=== PATIENT | male | born 1965 | race Caucasian/White ===

== ENCOUNTER 2018-04-29 00:10 | Emergency (ER) | payer OTHER ==
[2018-04-29] MEDS ORDERED: Sodium Chloride 0.9% 1000 ML 1,000 ML ONE (00:42)
[2018-04-29] MEDS ORDERED: Sodium Chloride 0.9% 1000 ML 1,000 ML IV STA (00:44)
[2018-04-29] MEDS ORDERED: Zofran 4 MG/2 ML VIAL IV ONE (00:44)
[2018-04-29] MEDS ORDERED: Zofran 4 MG/2 ML VIAL ONE (00:49)
--- NOTE | 2018-04-29 00:52 | ERPHSYRPT ---
- History of Present Illness Time Seen by Provider: 04/29/18 00:30 Historian: patient Exam Limitations: clinical condition Patient Subjective Stated Complaint: pt is alert and oriented. pt is ambulatory with a steady gait. pt comes in with c/o LLQ abd pain. pt states that he also has left flank pain. pt states that pain has been "coming and going for 2 weeks but became unbearable tonight". pt states he's had some nausea, vomiting x1, and diarrhea. hx of crohns. pt denies pain or difficulty urinating, denies hematuria. bowel sounds present x4. Triage Nursing Assessment: see above Physician History: PATIENT WITH A HISTORY OF CROHNS DISEASE COMPLAINS OF LEFT SIDED ABDOMINAL PAIN FOR 1 WEEK AND LEFT FLANK PAIN X 2 WEEKS. HAS ASSOCIATED EMESIS X 1 TODAY AND DIARRHEA. DENIES FEVER, MELENA, URINARY SYMPTOMS, FREQUENCY, URGENCY, DYSURIA. Timing/Duration: week(s) Activities at Onset: none Quality: throbbing Abdominal Pain Onset Location: LLQ, flank Pain Radiation: flank Severity of Pain-Max: moderate Severity of Pain-Current: moderate Modifying Factors: Improves With: vomiting Associated Symptoms: diarrhea, nausea, vomiting Previous symptoms: same symptoms as today Allergies/Adverse Reactions: Penicillins Allergy (Verified 08/13/15 13:01) IV DYE Adverse Reaction (Uncoded 08/13/15 13:01) Home Medications: Magnesium Oxide 1 tab PO BID 11/26/14 [History] Cyanocobalamin 1000 Mcg/ml [Cyanocobalamin B-12 1000 MCG/ML] 1,000 mcg IJ .MONTHLY 08/13/15 [History] Mesalamine [Pentasa] 500 mg PO TID 08/13/15 [History] Potassium Chloride 20 Meq [Klor-Con 20 MEQ] 40 meq PO BID 08/13/15 [History] Hx Tetanus, Diphtheria Vaccination/Date Given: Yes (November 2017) Hx Influenza Vaccination/Date Given: Yes Hx Pneumococcal Vaccination/Date Given: No Immunizations Up to Date: Yes - Review of Systems Constitutional: No Fever, No Chills Eyes: No Symptoms Ears, Nose, & Throat: No Symptoms Respiratory: No Symptoms, No Cough, No Dyspnea Cardiac: No Symptoms, No Chest Pain, No Edema, No Syncope Abdominal/Gastrointestinal: Abdominal Pain, Nausea, Vomiting, Diarrhea Genitourinary Symptoms: No Symptoms, Flank Pain, No Dysuria Musculoskeletal: No Back Pain, No Neck Pain Skin: No Symptoms, No Rash Neurological: No Symptoms, No Dizziness, No Focal Weakness, No Sensory Changes Psychological: No Symptoms Endocrine: No Symptoms All Other Systems: Reviewed and Negative - Past Medical History Pertinent Past Medical History: Yes Neurological History: No Pertinent History ENT History: No Pertinent History Cardiac History: No Pertinent History Respiratory History: No Pertinent History Endocrine Medical History: No Pertinent History Musculoskeletal History: No Pertinent History GI Medical History: Crohns Disease History: No Pertinent History Psycho-Social History: Depression Male Reproductive Disorders: No Pertinent History Other Medical History: CHRONIC ABD PAIN - Past Surgical History Past Surgical History: Yes Neuro Surgical History: No Pertinent History Cardiac: No Pertinent History Respiratory: No Pertinent History Gastrointestinal: Colon Resection Genitourinary: No Pertinent History Musculoskeletal: No Pertinent History Male Surgical History: No Pertinent History Other Surgical History: adnoids, tonsils, small bowel resection - Social History Smoking Status: Current every day smoker How long have you smoked: 35 years Exposure to second hand smoke: Yes Drug Use: none Patient Lives Alone: No - Nursing Vital Signs Nursing Vital Signs: Initial Vital Signs Temperature 97.5 F 04/29/18 00:10 Pulse Rate 77 04/29/18 00:10 Respiratory Rate 18 04/29/18 00:10 Blood Pressure 160/102 04/29/18 00:10 O2 Sat by Pulse Oximetry 100 04/29/18 00:10 Pain Scale Pain Intensity 10 - Physical Exam General Appearance: no apparent distress, alert Eye Exam: PERRL/EOMI, eyes nml inspection Ears, Nose, Throat Exam: normal ENT inspection, pharynx normal, moist mucous membranes Neck Exam: normal inspection, non-tender, supple, full range of motion Respiratory Exam: normal breath sounds, lungs clear, No respiratory distress Cardiovascular Exam: regular rate/rhythm, normal heart sounds Gastrointestinal/Abdomen Exam: soft, normal bowel sounds, tenderness ( TENDERNESS LEFT LATERAL ABDOMEN,), No mass Back Exam: normal inspection, normal range of motion, CVA tenderness (MODERATE LEFT CVA TENDERNESS), No vertebral tenderness Extremity Exam: normal inspection, normal range of motion, pelvis stable Neurologic Exam: alert, oriented x 3, cooperative, normal mood/affect, nml cerebellar function, sensation nml, No motor deficits Skin Exam: normal color, warm, dry SpO2 Interpretation: normal SpO2: 100 Oxygen Delivery: Room Air - CT Exams Abdomen/Pelvis CT Interpretation: Tele-radiologist Report (STATUS POST PARTIAL COLECTOMY FOR CROHNS DZ, DILATED SEGMENTS OF COLON FILLED WITH AIR, MAXIMUM DIAMETER IS APPROXIMATE 5.2CM, NO BOWEL WALL THICKENING, NO MESENTERIC INFLAMMATION, NO FREE INTA-ABDOMINAL FLUID OR AIR, THERE IS ALSO DILATED LOOPS OF SMALL BOWEL FILLED WITH FLUID. THE EXACT TRANSITION POINT IS NOT CLEAR.) Ordered Tests: Active Orders 24 hr Category Date Time Status IV Insertion STAT Care 04/29/18 00:44 Active ABDOMEN AND PELVIS W/0 CONTRAS [CT] Stat Exams 04/29/18 00:45 Taken AMYLASE Stat Lab 04/29/18 01:00 Completed BLOOD CULTURE Stat Lab 04/29/18 01:30 Received BMP Stat Lab 04/29/18 01:00 Completed CBC W DIFF Stat Lab 04/29/18 00:30 Completed LIPASE Stat Lab 04/29/18 01:00 Completed Occult Blood,Stool Other Stat Lab 04/29/18 01:00 Received PROTIME WITH INR Stat Lab 04/29/18 01:00 Completed UA W/RFX UR CULTURE Stat Lab 04/29/18 01:00 Completed Medication Summary Discontinued Medications Generic Name Dose Route Start Last Admin Trade Name Freq PRN Reason Stop Dose Admin Sodium Chloride Confirm 04/29/18 00:42 Sodium Chloride 0.9% 1000 Ml Administered 04/29/18 00:43 Dose 1,000 mls @ ud .ROUTE .STK-MED ONE Sodium Chloride 1,000 mls @ 999 mls/hr 04/29/18 00:44 04/29/18 00:48 Sodium Chloride 0.9% 1000 Ml IV 04/29/18 01:44 999 mls/hr .Q1H1M STA Administration Ketorolac Tromethamine 30 mg 04/29/18 02:26 04/29/18 02:40 Toradol 30 Mg Injection IV 04/29/18 02:27 30 mg STAT ONE Administration Ketorolac Tromethamine Confirm 04/29/18 02:39 Toradol 30 Mg Injection Administered 04/29/18 02:40 Dose 30 mg .ROUTE .STK-MED ONE Ondansetron HCl 4 mg 04/29/18 00:44 04/29/18 00:50 Zofran 4 Mg/2 Ml Vial IV 04/29/18 00:45 4 mg STAT ONE Administration Ondansetron HCl Confirm 04/29/18 00:49 Zofran 4 Mg/2 Ml Vial Administered 04/29/18 00:50 Dose 4 mg .ROUTE .STK-MED ONE Lab/Rad Data: Laboratory Result Diagrams 04/29/18 00:30 04/29/18 01:00 Laboratory Results 04/29/18 04/29/18 04/29/18 Range/Units 01:00 01:00 01:00 WBC (4.0-10.5) K/mm3 RBC (4.1-5.6) M/mm3 Hgb (12.5-18.0) gm/dl Hct (42-50) % MCV (78-100) fl MCH (26-32) pg MCHC (32-36) g/dl RDW (11.5-14.0) % Plt Count (150-450) K/mm3 MPV (6-9.5) fl Gran % (36.0-66.0) % Eos # (Auto) (0-0.5) Absolute Lymphs (auto) (1.0-4.6) Absolute Monos (auto) (0.0-1.3) Lymphocytes % (24.0-44.0) % Monocytes % (0.0-12.0) % Eosinophils % (0.00-5.0) % Basophils % (0.0-0.4) % Absolute Granulocytes (1.4-6.9) Basophils # (0-0.4) PT 12.6 (8.83-12.87) SECONDS INR 1.08 (0.8-3.0) Sodium 140 (137-145) mmol/L Potassium 3.6 (3.5-5.1) mmol/L Chloride 103 (98-107) mmol/L Carbon Dioxide 28 (22-30) mmol/L Anion Gap 12.0 (5-15) MEQ/L BUN 16 (9-20) mg/dL Creatinine 0.86 (0.66-1.25) mg/dL Estimated GFR > 60.0 ML/MIN Glucose 88 (74-106) mg/dL Calcium 9.4 (8.4-10.2) mg/dL Amylase 61 (30-110) U/L Lipase 196 (23-300) U/L Urine Color YELLOW (YELLOW) Urine Appearance CLEAR (CLEAR) Urine pH 6.0 (5-6) Ur Specific [place] 1.013 (1.005-1.025) Urine Protein NEGATIVE (Negative) Urine Ketones NEGATIVE (NEGATIVE) Urine Blood NEGATIVE (0-5) Reji/ul Urine Nitrite NEGATIVE (NEGATIVE) Urine Bilirubin NEGATIVE (NEGATIVE) Urine Urobilinogen 2 (0-1) mg/dL Ur Leukocyte Esterase NEGATIVE (NEGATIVE) Urine WBC (Auto) 0-2 (0-5) /HPF Urine RBC (Auto) 0-2 (0-2) /HPF U Epithel Cells (Auto) NONE SEEN (FEW) /HPF Urine Mucus (Auto) SLIGHT (NEGATIVE) /HPF Urine Culture Reflexed NO (NO) Urine Glucose NEGATIVE (NEGATIVE) mg/dL 04/29/18 Range/Units 00:30 WBC 9.3 (4.0-10.5) K/mm3 RBC 5.02 (4.1-5.6) M/mm3 Hgb 15.4 (12.5-18.0) gm/dl Hct 43.5 (42-50) % MCV 86.7 (78-100) fl MCH 30.7 (26-32) pg MCHC 35.4 (32-36) g/dl RDW 13.8 (11.5-14.0) % Plt Count 352 (150-450) K/mm3 MPV 10.4 H (6-9.5) fl Gran % 69.1 H (36.0-66.0) % Eos # (Auto) 0.24 (0-0.5) Absolute Lymphs (auto) 1.91 (1.0-4.6) Absolute Monos (auto) 0.71 (0.0-1.3) Lymphocytes % 20.5 L (24.0-44.0) % Monocytes % 7.6 (0.0-12.0) % Eosinophils % 2.6 (0.00-5.0) % Basophils % 0.2 (0.0-0.4) % Absolute Granulocytes 6.43 (1.4-6.9) Basophils # 0.02 (0-0.4) PT (8.83-12.87) SECONDS INR (0.8-3.0) Sodium (137-145) mmol/L Potassium (3.5-5.1) mmol/L Chloride (98-107) mmol/L Carbon Dioxide (22-30) mmol/L Anion Gap (5-15) MEQ/L BUN (9-20) mg/dL Creatinine (0.66-1.25) mg/dL Estimated GFR ML/MIN Glucose (74-106) mg/dL Calcium (8.4-10.2) mg/dL Amylase (30-110) U/L Lipase (23-300) U/L Urine Color (YELLOW) Urine Appearance (CLEAR) Urine pH (5-6) Ur Specific [place] (1.005-1.025) Urine Protein (Negative) Urine Ketones (NEGATIVE) Urine Blood (0-5) Reji/ul Urine Nitrite (NEGATIVE) Urine Bilirubin (NEGATIVE) Urine Urobilinogen (0-1) mg/dL Ur Leukocyte Esterase (NEGATIVE) Urine WBC (Auto) (0-5) /HPF Urine RBC (Auto) (0-2) /HPF U Epithel Cells (Auto) (FEW) /HPF Urine Mucus (Auto) (NEGATIVE) /HPF Urine Culture Reflexed (NO) Urine Glucose (NEGATIVE) mg/dL - Progress Progress Note: 04/29/18 00:54 IV NORMAL SALINE 1 LITER BOLUS - Departure Time of Disposition: 03:05 (\\) Departure Disposition: Home Clinical Impression: ABDOMINAL PAIN Condition: Stable Critical Care Time: No Referrals: HAIM CRANDALL MD [Primary Care Provider] - Additional Instructions: ZOFRAN 4MG EVERY 6 HOURS NEEDED FOR NAUSEA OR VOMITING. NORCO 10/325 EVERY 4 HOURS FOR PAIN. CONSULT YOUR PRIMARY CARE PROVIDER TO RESCHEDULE COLONOSCOPY. Prescriptions: Ondansetron ODT 4 MG [Zofran Odt 4 mg] 4 mg PO Q6H PRN PRN #10 tab.rapdis PRN Reason: Nausea
[2018-04-29 01:52] LABS: Appearance CLEAR (CLEAR); Bilirubin NEGATIVE (NEGATIVE); Blood NEGATIVE Ery/ul (0-5); Glucose NEGATIVE (NEGATIVE); Ketones NEGATIVE (NEGATIVE); Leukocyte Esterase NEGATIVE (NEGATIVE); Nitrite NEGATIVE (NEGATIVE); Protein,Urine Dip NEGATIVE (Negative); Specific Gravity 1.013 (1.005-1.025); Urobilinogen 2 mg/dL (0-1)
[2018-04-29 02:03] LABS: INR 1.08 (0.8-3.0)
[2018-04-29 02:07] LABS: AMYLASE 61 U/L (30-110); BLOOD UREA NITROGEN 16 mg/dL (9-20); CHLORIDE 103 mmol/L (98-107); Calcium 9.4 mg/dL (8.4-10.2); Carbon Dioxide 28 mmol/L (22-30); Creatinine 1 0.86 mg/dL (0.66-1.25); Glucose 88 mg/dL (74-106); LIPASE 196 U/L (23-300); Potassium 3.6 mmol/L (3.5-5.1); SODIUM 140 mmol/L (137-145)
[2018-04-29] MEDS ORDERED: TORAdol 30 mg Injection IV ONE (02:26)
[2018-04-29 02:37] LABS: BASOPHIL % 0.2 % (0.0-0.4); Basophil (Absolute #) 0.02 (0-0.4); Eosinophil % 2.6 % (0.00-5.0); Eosinophil (Absolute #) 0.24 (0-0.5); Granulocyte Absolute (ANC) 6.43 (1.4-6.9); Granulocytes % 69.1 % (36.0-66.0); Hematocrit 43.5 % (42-50); Hemoglobin 15.4 gm/dl (12.5-18.0); Lymphocyte (Absolute #) 1.91 (1.0-4.6); Lymphocytes % 20.5 % (24.0-44.0); Mean Cell Volume 86.7 fl (78-100); Mean Corpuscular Hemoglobin 30.7 pg (26-32); Mean Corpuscular Hgb Concent. 35.4 g/dl (32-36); Mean Platelet Volume 10.4 fl (6-9.5); Monocyte (Absolute #) 0.71 (0.0-1.3); Monocytes % 7.6 % (0.0-12.0); Platelet Count 352 K/mm3 (150-450); Red Blood Count 5.02 M/mm3 (4.1-5.6); Red Cell Distribution Width 13.8 % (11.5-14.0); White Blood Count 9.3 K/mm3 (4.0-10.5)
[2018-04-29] MEDS ORDERED: TORAdol 30 mg Injection ONE (02:39)
[2018-04-29] MEDS ORDERED: Norco 10/325 MG Tablet PO ONE (03:08)
[2018-04-29] MEDS ORDERED: Norco 10/325 MG Tablet ONE (03:10)
[2018-04-29 03:17] VITALS: BP 129/79; PULSE 60; O2SAT 97
--- NOTE | 2018-04-29 07:31 | XRAY ---
Indication: Left abdominal pain. Multiple contiguous axial images obtained through the abdomen and pelvis without contrast as ordered. Comparison: November 26, 2014. Lung bases again demonstrates minimal left base fibrosis/scarring. No infiltrate or effusion. Heart is not enlarged. New small hiatal hernia. Stomach is distended with food/fluid. Stable intact right mid abdomen bowel anastomosis. Bowel loops are mild/moderately fluid distended with left abdomen bowel wall thickening and several synchronous fluid leveling, ileus versus enteritis. Bowel loops also demonstrates numerous tiny radiopacities presumed ingested medication. Previous appendectomy. No free fluid/air. Again moderately distended gallbladder without gallstones or biliary distention. Remaining liver, anchors, spleen, adrenal glands, kidneys, ureters, and bladder appear unremarkable for noncontrast exam. Again minimal aortic calcifications without AAA. Osseous structures intact again with mild degenerative changes throughout the spine. Impression: 1. Fluid distended bowel loops with left abdomen bowel wall thickening and several fluid leveling, ileus versus enteritis. 2. Stable distended gallbladder. Gallbladder sonogram may yield further information if clinically warranted. 3. New small hiatal hernia. Comment: Preliminary interpretation was made by [facility]. No critical discrepancy. CTDI 8.07
== END 2018-04-29 03:25 | disposition home or self-care (01) ==
LOC: ED 00:10
DX: R10.32 Left lower quadrant pain (principal); R19.7 Diarrhea, unspecified; R11.2 Nausea with vomiting, unspecified; Z79.899 Other long term (current) drug therapy
CPT/HCPCS: 36000; 36415; 74176; 80048; 81001; 82150; 83690; 85025; 85610; 87040; 96360; 96374; 96375; 99284; J1885; J2405; A9270-GY

== ENCOUNTER 2018-12-15 17:29 | Observation (INO) | payer OTHER ==
[2018-12-15 17:54] LABS: BASOPHIL % 0.1 % (0.0-0.4); Basophil (Absolute #) 0.01 (0-0.4); Eosinophil % 1.8 % (0.00-5.0); Eosinophil (Absolute #) 0.22 (0-0.5); Granulocyte Absolute (ANC) 9.11 (1.4-6.9); Granulocytes % 72.8 % (36.0-66.0); Hematocrit 37.7 % (42-50); Hemoglobin 13.5 gm/dl (12.5-18.0); Lymphocyte (Absolute #) 2.11 (1.0-4.6); Lymphocytes % 16.9 % (24.0-44.0); Mean Cell Volume 91.3 fl (78-100); Mean Corpuscular Hemoglobin 32.7 pg (26-32); Mean Corpuscular Hgb Concent. 35.8 g/dl (32-36); Mean Platelet Volume 9.9 fl (6-9.5); Monocyte (Absolute #) 1.05 (0.0-1.3); Monocytes % 8.4 % (0.0-12.0); Platelet Count 291 K/mm3 (150-450); Red Blood Count 4.13 M/mm3 (4.1-5.6); Red Cell Distribution Width 13.4 % (11.5-14.0); White Blood Count 12.5 K/mm3 (4.0-10.5)
[2018-12-15 18:05] LABS: ALBUMIN 3.5 g/dL (3.5-5.0); ALKALINE PHOSPHATASE 104 U/L (38-126); ANION GAP 13.3 MEQ/L (5-15); BLOOD UREA NITROGEN 6 mg/dL (9-20); CHLORIDE 102 mmol/L (98-107); Carbon Dioxide 25 mmol/L (22-30); Creatinine 1 0.89 mg/dL (0.66-1.25); Glucose 104 mg/dL (74-106); SGOT/AST 19 U/L (17-59); SGPT/ALT 13 U/L (0-50); SODIUM 138 mmol/L (137-145); Total Protein 6.4 g/dL (6.3-8.2)
[2018-12-15 18:08] LABS: Potassium 2.7 mmol/L (3.5-5.1)
[2018-12-15] MEDS ORDERED: ENOXAPARIN SODIUM SQ ONE ×2 (18:09→18:21)
--- NOTE | 2018-12-15 18:15 | ERPHSYRPT ---
- History of Present Illness Time Seen by Provider: 12/15/18 18:12 Source: patient Exam Limitations: no limitations Patient Subjective Stated Complaint: Pt states "I am having pain on the right chest." Triage Nursing Assessment: Pt presented alert and oriented X 3, skin pwd. Pt ambulates with an upright steady gait, able to speak in clear full sentences. Pt in no apparent respiratory distress. Physician History: Pt states "I am having pain on the right chest." started 1 hour ago. with tingling and numbness in both arms, pain radiate to right arm, forearm and fingers. No shortness of breath. Patient has long history of crohns disease but recently no active symptoms Timing/Duration: today Associated Symptoms: denies symptoms Allergies/Adverse Reactions: buspirone [From BuSpar] Allergy (Severe, Verified 12/15/18 17:42) Swelling Penicillins Allergy (Verified 12/14/18 07:37) IV DYE Adverse Reaction (Uncoded 12/14/18 07:37) Home Medications: Magnesium Oxide 1 tab PO BID 11/26/14 [History] Cyanocobalamin 1000 Mcg/ml [Cyanocobalamin B-12 1000 MCG/ML] 1,000 mcg IJ .MONTHLY 08/13/15 [History] Mesalamine [Pentasa] 500 mg PO TID 08/13/15 [History] Hx Tetanus, Diphtheria Vaccination/Date Given: Yes Hx Influenza Vaccination/Date Given: Yes Hx Pneumococcal Vaccination/Date Given: Yes Immunizations Up to Date: Yes - Review of Systems Constitutional: No Fever, No Chills Eyes: No Symptoms Ears, Nose, & Throat: No Symptoms Respiratory: No Cough, No Dyspnea Cardiac: Chest Pain, No Edema, No Syncope Abdominal/Gastrointestinal: No Abdominal Pain, No Nausea, No Vomiting, No Diarrhea Genitourinary Symptoms: No Dysuria Musculoskeletal: No Back Pain, No Neck Pain Skin: No Rash Neurological: No Dizziness, No Focal Weakness, No Sensory Changes Psychological: No Symptoms Endocrine: No Symptoms All Other Systems: Reviewed and Negative - Past Medical History Pertinent Past Medical History: Yes Neurological History: No Pertinent History ENT History: No Pertinent History Cardiac History: No Pertinent History Respiratory History: No Pertinent History Endocrine Medical History: No Pertinent History Musculoskeletal History: No Pertinent History GI Medical History: Crohns Disease History: No Pertinent History Psycho-Social History: Depression Male Reproductive Disorders: No Pertinent History Other Medical History: CHRONIC ABD PAIN - Past Surgical History Past Surgical History: Yes Neuro Surgical History: No Pertinent History Cardiac: No Pertinent History Respiratory: No Pertinent History Gastrointestinal: Colon Resection Genitourinary: No Pertinent History Musculoskeletal: No Pertinent History Male Surgical History: No Pertinent History Other Surgical History: adnoids, tonsils, small bowel resection - Social History Smoking Status: Current every day smoker How long have you smoked: 42 years Exposure to second hand smoke: Yes Drug Use: none Patient Lives Alone: Yes - Nursing Vital Signs Nursing Vital Signs: Initial Vital Signs Temperature 98.9 F 12/15/18 17:35 Pulse Rate 72 12/15/18 17:35 Respiratory Rate 18 12/15/18 17:35 Blood Pressure 141/85 12/15/18 17:35 O2 Sat by Pulse Oximetry 97 12/15/18 17:35 Pain Scale Pain Intensity 2 - Physical Exam General Appearance: no apparent distress, alert Eye Exam: PERRL/EOMI, eyes nml inspection Ears, Nose, Throat Exam: normal ENT inspection, TMs normal, pharynx normal, moist mucous membranes Neck Exam: normal inspection, non-tender, supple, full range of motion Respiratory Exam: chest tenderness, diminished breath sounds, No respiratory distress Cardiovascular Exam: regular rate/rhythm, normal heart sounds, normal peripheral pulses Gastrointestinal/Abdomen Exam: soft, normal bowel sounds, No tenderness, No mass Back Exam: normal inspection, normal range of motion, No CVA tenderness, No vertebral tenderness Extremity Exam: normal inspection, normal range of motion, pelvis stable Neurologic Exam: alert, oriented x 3, cooperative, normal mood/affect, nml cerebellar function, nml station & gait, sensation nml, No motor deficits Skin Exam: normal color, warm, dry, No rash Lymphatic Exam: No adenopathy SpO2: 97 - Course Nursing assessment & vital signs reviewed: Yes EKG Interpreted by Me: Sinus Rhythm - Radiology Exams Chest X-ray Interpretation: Reviewed by me Ordered Tests: Active Orders 24 hr Category Date Time Status EKG-ER Only STAT Care 12/15/18 17:45 Active Oxygen-ED Only Nasal Cannula 2 lpm Care 12/15/18 17:44 Active CHEST 2 VIEWS (PA AND LAT) Stat Exams 12/15/18 17:44 Taken CBC W DIFF Stat Lab 12/15/18 17:50 Completed CMP Stat Lab 12/15/18 17:50 Completed D-DIMER QUANTITATION Stat Lab 12/15/18 17:50 Completed TROPONIN Q3H Lab 12/15/18 17:50 Completed TROPONIN Q3H Lab 12/15/18 20:45 Ordered TROPONIN Q3H Lab 12/15/18 23:45 Ordered TROPONIN Q3H Lab 12/16/18 02:45 Ordered TROPONIN Q3H Lab 12/16/18 05:45 Ordered Medication Summary Generic Name Dose Route Start Last Admin Trade Name Freq PRN Reason Stop Dose Admin Potassium Chloride 20 meq in 100 mls @ 50 mls/hr 12/15/18 18:15 12/15/18 18: 26 Potassium Chloride 20 Meq In Water 100ml IV 12/15/18 22:14 50 mls/hr Q2H JOSE M Administration Levofloxacin/Dextrose 750 mg in 150 mls @ 100 mls/hr 12/15/18 18:16 Levofloxacin 750mg/150ml D5w IV 12/15/18 19:45 STAT STA Discontinued Medications Generic Name Dose Route Start Last Admin Trade Name Freq PRN Reason Stop Dose Admin Enoxaparin Sodium 60 mg 12/15/18 18:09 12/15/18 18:27 Enoxaparin Sodium SQ 12/15/18 18:10 60 mg STAT ONE Administration Enoxaparin Sodium Confirm 12/15/18 18:21 Enoxaparin Sodium Administered 12/15/18 18:22 Dose 120 mg SQ .STK-MED ONE Sodium Chloride Confirm 12/15/18 18:21 Sodium Chloride 0.9% 1000 Ml Administered 12/15/18 18:22 Dose 1,000 mls @ ud .ROUTE .STK-MED ONE Lab/Rad Data: Laboratory Result Diagrams 12/15/18 17:50 12/15/18 17:50 Laboratory Results 12/15/18 12/15/18 12/15/18 Range/Units 17:50 17:50 17:50 WBC (4.0-10.5) K/mm3 RBC (4.1-5.6) M/mm3 Hgb (12.5-18.0) gm/dl Hct (42-50) % MCV (78-100) fl MCH (26-32) pg MCHC (32-36) g/dl RDW (11.5-14.0) % Plt Count (150-450) K/mm3 MPV (6-9.5) fl Gran % (36.0-66.0) % Eos # (Auto) (0-0.5) Absolute Lymphs (auto) (1.0-4.6) Absolute Monos (auto) (0.0-1.3) Lymphocytes % (24.0-44.0) % Monocytes % (0.0-12.0) % Eosinophils % (0.00-5.0) % Basophils % (0.0-0.4) % Absolute Granulocytes (1.4-6.9) Basophils # (0-0.4) D-Dimer 1240 H* (215-500) ng/mL Sodium 138 (137-145) mmol/L Potassium 2.7 L* (3.5-5.1) mmol/L Chloride 102 (98-107) mmol/L Carbon Dioxide 25 (22-30) mmol/L Anion Gap 13.3 (5-15) MEQ/L BUN 6 L (9-20) mg/dL Creatinine 0.89 (0.66-1.25) mg/dL Estimated GFR > 60.0 ML/MIN Glucose 104 (74-106) mg/dL Calcium 9.0 (8.4-10.2) mg/dL Total Bilirubin 0.40 (0.2-1.3) mg/dL AST 19 (17-59) U/L ALT 13 (0-50) U/L Alkaline Phosphatase 104 (38-126) U/L Troponin I < 0.012 (0.000-0.034) ng/mL Serum Total Protein 6.4 (6.3-8.2) g/dL Albumin 3.5 (3.5-5.0) g/dL 12/15/18 Range/Units 17:50 WBC 12.5 H (4.0-10.5) K/mm3 RBC 4.13 (4.1-5.6) M/mm3 Hgb 13.5 (12.5-18.0) gm/dl Hct 37.7 L (42-50) % MCV 91.3 (78-100) fl MCH 32.7 H (26-32) pg MCHC 35.8 (32-36) g/dl RDW 13.4 (11.5-14.0) % Plt Count 291 (150-450) K/mm3 MPV 9.9 H (6-9.5) fl Gran % 72.8 H (36.0-66.0) % Eos # (Auto) 0.22 (0-0.5) Absolute Lymphs (auto) 2.11 (1.0-4.6) Absolute Monos (auto) 1.05 (0.0-1.3) Lymphocytes % 16.9 L (24.0-44.0) % Monocytes % 8.4 (0.0-12.0) % Eosinophils % 1.8 (0.00-5.0) % Basophils % 0.1 (0.0-0.4) % Absolute Granulocytes 9.11 H (1.4-6.9) Basophils # 0.01 (0-0.4) D-Dimer (215-500) ng/mL Sodium (137-145) mmol/L Potassium (3.5-5.1) mmol/L Chloride (98-107) mmol/L Carbon Dioxide (22-30) mmol/L Anion Gap (5-15) MEQ/L BUN (9-20) mg/dL Creatinine (0.66-1.25) mg/dL Estimated GFR ML/MIN Glucose (74-106) mg/dL Calcium (8.4-10.2) mg/dL Total Bilirubin (0.2-1.3) mg/dL AST (17-59) U/L ALT (0-50) U/L Alkaline Phosphatase (38-126) U/L Troponin I (0.000-0.034) ng/mL Serum Total Protein (6.3-8.2) g/dL Albumin (3.5-5.0) g/dL - Progress Progress: improved Discussed with DrSrikanth: Latonya Oconnor Counseled pt/family regarding: lab results, diagnosis, need for follow-up - Departure Departure Disposition: Observation Clinical Impression: Hypokalemia, gastrointestinal losses, Elevated d-dimer, Chest pain in adult Condition: Fair Critical Care Time: Yes Critical Care Time(excluding separately billable procedures): 30-74 minutes Referrals: HAIM CRANDALL MD [Primary Care Provider] -
[2018-12-15] MEDS ORDERED: LEVOFLOXACIN 750MG/150ML D5W 750 MG/150 ML BAG IV STA (18:16)
[2018-12-15] MEDS ORDERED: Sodium Chloride 0.9% 1000 ML 1,000 ML ONE (18:21)
[2018-12-15] MEDS: POTASSIUM CHLORIDE 20 mEq IN WATER 100ML 20 MEQ/100 ML BAG IV SCH ×2 (18:26→21:39)
[2018-12-15] MEDS ORDERED: Sodium Chloride 0.9% 1000 ML 1,000 ML IV SCH (19:36)
[2018-12-15] MEDS ORDERED: TYLENOL 325 MG PO PRN (19:36)
[2018-12-15] MEDS: ENOXAPARIN SODIUM SQ SCH (19:57)
[2018-12-15] MEDS: DUONEB 0.5-3 MG/3 ml Neb IH SCH (20:55)
--- NOTE | 2018-12-15 21:32 | XRAY ---
Indication: Right chest pain. Comparison: None PA/lateral chest hyperinflated and clear. Heart and mediastinal structures within normal limits. Bony thorax intact with mild dextroscoliosis. Impression: Nonacute hyperinflated chest.
[2018-12-15] MEDS ORDERED: DELZICOL PO SCH (22:00)
[2018-12-16] MEDS ORDERED: LEVOFLOXACIN 750MG/150ML D5W 750 MG/150 ML BAG IV ONE (01:31)
[2018-12-16 06:35] LABS: BASOPHIL % 0.3 % (0.0-0.4); Basophil (Absolute #) 0.03 (0-0.4); Eosinophil % 2.4 % (0.00-5.0); Eosinophil (Absolute #) 0.25 (0-0.5); Granulocyte Absolute (ANC) 7.37 (1.4-6.9); Granulocytes % 72.2 % (36.0-66.0); Hematocrit 34.4 % (42-50); Hemoglobin 11.9 gm/dl (12.5-18.0); Lymphocytes % 15.7 % (24.0-44.0); Mean Cell Volume 93.5 fl (78-100); Mean Corpuscular Hemoglobin 32.3 pg (26-32); Mean Corpuscular Hgb Concent. 34.6 g/dl (32-36); Mean Platelet Volume 10.3 fl (6-9.5); Monocyte (Absolute #) 0.96 (0.0-1.3); Monocytes % 9.4 % (0.0-12.0); Platelet Count 254 K/mm3 (150-450); Red Blood Count 3.68 M/mm3 (4.1-5.6); Red Cell Distribution Width 13.5 % (11.5-14.0); White Blood Count 10.2 K/mm3 (4.0-10.5)
[2018-12-16 06:43] LABS: BLOOD UREA NITROGEN 6 mg/dL (9-20); CHLORIDE 109 mmol/L (98-107); Calcium 8.2 mg/dL (8.4-10.2); Carbon Dioxide 22 mmol/L (22-30); Creatinine 1 0.81 mg/dL (0.66-1.25); Glucose 92 mg/dL (74-106); SODIUM 141 mmol/L (137-145)
[2018-12-16] MEDS: DUONEB 0.5-3 MG/3 ml Neb IH SCH ×3 (07:26→15:59)
[2018-12-16] MEDS: ENOXAPARIN SODIUM SQ SCH (07:45)
[2018-12-16] MEDS ORDERED: DELZICOL PO SCH (10:00)
[2018-12-16] MEDS ORDERED: K-LYTE 25 MEQ PO ONE (13:10)
--- NOTE | 2018-12-16 14:00 | PCM.SSS ---
History of Present Illness - Chief Complaint Chief Complaint: chest pain, hypokalemia, Elevated D dimer History of Present Illness: is a 53 year old male pt of Dr. Oconnor with Crohn's disease, chronic hypokalemia and hypomagnesemia, hx SBO, and depression, who came to ER c /o R sided chest pain and weakness. Was found to have potassium of 2.7 and d- dimer of 1240. CXR was nl and troponins have been neg x 5. He has an allergy to IV dye so CTA of the chest was not done to r/o PE. He was given a therapeutic dose of lovenox and admitted for possible VQ scan. Pt had been to Dr. Oconnor 3d ago for refills on his medicine but for some reason the potassium did not get refilled and he has been out for 3 days. He states he has had these sx before when he gets hypokalemic. The day of admission he was suddenly weak, had tingling in his legs and arms with R sided, stabbing 2-3 chest pain without N/diaphoresis. He "couldn't sit still." Was also c/o hot flashes and dry heaves. This morning he states his sx are gone. no chest pain at all. Not SOB. Medications & Allergies Home Medications: Home Medication List Magnesium Oxide 1 tab PO BID 11/26/14 [History Confirmed 12/15/18] Cyanocobalamin 1000 Mcg/ml [Cyanocobalamin B-12 1000 MCG/ML] 1,000 mcg IJ .MONTHLY 08/13/15 [History Confirmed 12/15/18] Mesalamine [Pentasa] 500 mg PO TID 08/13/15 [History Confirmed 12/15/18] Potassium Chloride [K-Dur] 40 meq PO BID #120 tab.er.prt 12/16/18 [Rx] Allergies/Adverse Reactions: Allergies Allergy/AdvReac Type Severity Reaction Status Date / Time buspirone [From BuSpar] Allergy Severe Swelling Verified 12/15/18 17:42 Penicillins Allergy Verified 12/14/18 07:37 IV DYE AdvReac Uncoded 12/14/18 07:37 - Past Medical History Past Medical History: Yes Neurological History: No Pertinent History ENT History: No Pertinent History Cardiac History: No Pertinent History Respiratory History: No Pertinent History Endocrine Medical History: No Pertinent History Musculoskelatal History: No Pertinent History GI Medical History: Crohns Disease History: No Pertinent History Pyscho-Social History: Depression Male Reproductive Disorders: No Pertinent History Comment: chronic abd pain - Past Surgical History Past Surgical History: Yes Neuro Surgical History: No Pertinent History Cardiac History: No Pertinent History Respiratory Surgery: No Pertinent History GI Surgical History: Appendectomy, Colon Resection Genitourinary Surgical Hx: No Pertinent History Musculskeletal Surgical Hx: No Pertinent History Male Surgical History: No Pertinent History Other Surgical History: adnoids, tonsils, small bowel resection - Social History Smoking Status: Current every day smoker How long have you smoked: 42 years Exposure to second hand smoke: Yes Alcohol: Rarely Drug Use: none - Physical Exam Vital Signs: Vital Signs - 24 hr Temp Pulse Pulse Resp BP Pulse Ox 12/16/18 12:00 98.8 F 84 16 123/66 98 12/16/18 11:26 64 16 98 12/16/18 07:30 57 L 16 98 12/16/18 07:25 99 F 59 L 18 119/64 98 12/16/18 03:19 98.5 F 73 20 110/64 98 12/15/18 23:30 98.1 F 77 17 116/56 96 12/15/18 22:00 98.6 F 63 18 131/65 99 12/15/18 20:56 71 18 98 12/15/18 18:38 69 18 124/92 98 12/15/18 18:34 97 12/15/18 17:35 98.9 F 72 72 18 141/85 97 Results - Labs Lab/Micro Results: Lab Results-Last 24 Hours 12/15/18 12/15/18 12/15/18 Range/Units 17:50 17:50 17:50 WBC 12.5 H (4.0-10.5) K/mm3 RBC 4.13 (4.1-5.6) M/mm3 Hgb 13.5 (12.5-18.0) gm/dl Hct 37.7 L (42-50) % MCV 91.3 (78-100) fl MCH 32.7 H (26-32) pg MCHC 35.8 (32-36) g/dl RDW 13.4 (11.5-14.0) % Plt Count 291 (150-450) K/mm3 MPV 9.9 H (6-9.5) fl Gran % 72.8 H (36.0-66.0) % Eos # (Auto) 0.22 (0-0.5) Absolute Lymphs (auto) 2.11 (1.0-4.6) Absolute Monos (auto) 1.05 (0.0-1.3) Lymphocytes % 16.9 L (24.0-44.0) % Monocytes % 8.4 (0.0-12.0) % Eosinophils % 1.8 (0.00-5.0) % Basophils % 0.1 (0.0-0.4) % Absolute Granulocytes 9.11 H (1.4-6.9) Basophils # 0.01 (0-0.4) D-Dimer 1240 H* (215-500) ng/mL Sodium 138 (137-145) mmol/L Potassium 2.7 L* (3.5-5.1) mmol/L Chloride 102 (98-107) mmol/L Carbon Dioxide 25 (22-30) mmol/L Anion Gap 13.3 (5-15) MEQ/L BUN 6 L (9-20) mg/dL Creatinine 0.89 (0.66-1.25) mg/dL Estimated GFR > 60.0 ML/MIN Glucose 104 (74-106) mg/dL Calcium 9.0 (8.4-10.2) mg/dL Total Bilirubin 0.40 (0.2-1.3) mg/dL AST 19 (17-59) U/L ALT 13 (0-50) U/L Alkaline Phosphatase 104 (38-126) U/L Troponin I (0.000-0.034) ng/mL Serum Total Protein 6.4 (6.3-8.2) g/dL Albumin 3.5 (3.5-5.0) g/dL 12/15/18 12/15/18 12/15/18 Range/Units 17:50 20:57 23:47 WBC (4.0-10.5) K/mm3 RBC (4.1-5.6) M/mm3 Hgb (12.5-18.0) gm/dl Hct (42-50) % MCV (78-100) fl MCH (26-32) pg MCHC (32-36) g/dl RDW (11.5-14.0) % Plt Count (150-450) K/mm3 MPV (6-9.5) fl Gran % (36.0-66.0) % Eos # (Auto) (0-0.5) Absolute Lymphs (auto) (1.0-4.6) Absolute Monos (auto) (0.0-1.3) Lymphocytes % (24.0-44.0) % Monocytes % (0.0-12.0) % Eosinophils % (0.00-5.0) % Basophils % (0.0-0.4) % Absolute Granulocytes (1.4-6.9) Basophils # (0-0.4) D-Dimer (215-500) ng/mL Sodium (137-145) mmol/L Potassium (3.5-5.1) mmol/L Chloride (98-107) mmol/L Carbon Dioxide (22-30) mmol/L Anion Gap (5-15) MEQ/L BUN (9-20) mg/dL Creatinine (0.66-1.25) mg/dL Estimated GFR ML/MIN Glucose (74-106) mg/dL Calcium (8.4-10.2) mg/dL Total Bilirubin (0.2-1.3) mg/dL AST (17-59) U/L ALT (0-50) U/L Alkaline Phosphatase (38-126) U/L Troponin I < 0.012 < 0.012 < 0.012 (0.000-0.034) ng/mL Serum Total Protein (6.3-8.2) g/dL Albumin (3.5-5.0) g/dL 12/16/18 12/16/18 12/16/18 Range/Units 03:19 06:25 06:25 WBC 10.2 (4.0-10.5) K/mm3 RBC 3.68 L (4.1-5.6) M/mm3 Hgb 11.9 L (12.5-18.0) gm/dl Hct 34.4 L (42-50) % MCV 93.5 (78-100) fl MCH 32.3 H (26-32) pg MCHC 34.6 (32-36) g/dl RDW 13.5 (11.5-14.0) % Plt Count 254 (150-450) K/mm3 MPV 10.3 H (6-9.5) fl Gran % 72.2 H (36.0-66.0) % Eos # (Auto) 0.25 (0-0.5) Absolute Lymphs (auto) 1.60 (1.0-4.6) Absolute Monos (auto) 0.96 (0.0-1.3) Lymphocytes % 15.7 L (24.0-44.0) % Monocytes % 9.4 (0.0-12.0) % Eosinophils % 2.4 (0.00-5.0) % Basophils % 0.3 (0.0-0.4) % Absolute Granulocytes 7.37 H (1.4-6.9) Basophils # 0.03 (0-0.4) D-Dimer (215-500) ng/mL Sodium (137-145) mmol/L Potassium (3.5-5.1) mmol/L Chloride (98-107) mmol/L Carbon Dioxide (22-30) mmol/L Anion Gap (5-15) MEQ/L BUN (9-20) mg/dL Creatinine (0.66-1.25) mg/dL Estimated GFR ML/MIN Glucose (74-106) mg/dL Calcium (8.4-10.2) mg/dL Total Bilirubin (0.2-1.3) mg/dL AST (17-59) U/L ALT (0-50) U/L Alkaline Phosphatase (38-126) U/L Troponin I < 0.012 < 0.012 (0.000-0.034) ng/mL Serum Total Protein (6.3-8.2) g/dL Albumin (3.5-5.0) g/dL 12/16/18 Range/Units 06:25 WBC (4.0-10.5) K/mm3 RBC (4.1-5.6) M/mm3 Hgb (12.5-18.0) gm/dl Hct (42-50) % MCV (78-100) fl MCH (26-32) pg MCHC (32-36) g/dl RDW (11.5-14.0) % Plt Count (150-450) K/mm3 MPV (6-9.5) fl Gran % (36.0-66.0) % Eos # (Auto) (0-0.5) Absolute Lymphs (auto) (1.0-4.6) Absolute Monos (auto) (0.0-1.3) Lymphocytes % (24.0-44.0) % Monocytes % (0.0-12.0) % Eosinophils % (0.00-5.0) % Basophils % (0.0-0.4) % Absolute Granulocytes (1.4-6.9) Basophils # (0-0.4) D-Dimer (215-500) ng/mL Sodium 141 (137-145) mmol/L Potassium 3.0 L (3.5-5.1) mmol/L Chloride 109 H (98-107) mmol/L Carbon Dioxide 22 (22-30) mmol/L Anion Gap 12.0 (5-15) MEQ/L BUN 6 L (9-20) mg/dL Creatinine 0.81 (0.66-1.25) mg/dL Estimated GFR > 60.0 ML/MIN Glucose 92 (74-106) mg/dL Calcium 8.2 L (8.4-10.2) mg/dL Total Bilirubin (0.2-1.3) mg/dL AST (17-59) U/L ALT (0-50) U/L Alkaline Phosphatase (38-126) U/L Troponin I (0.000-0.034) ng/mL Serum Total Protein (6.3-8.2) g/dL Albumin (3.5-5.0) g/dL - Radiology Impressions Radiology Exams & Impressions: Radiology Procedures Category Date Time Status CHEST 2 VIEWS (PA AND LAT) Stat Exams 12/15/18 17:44 Completed - Other Procedures and Tests Respiratory Therapy 12/15/18 19:36 Oxygen Nasal Cannula 2 lpm 12/15/18 20:43 Peak Expiratory Flow Rate ONCE Respiratory Therapy Assessment DAILY Assessment/Plan (1) Chest pain in adult Current Visit: Yes Status: Resolved Assessment & Plan: ruled out for [place]. Has resolved. Code(s): R07.9 - CHEST PAIN, UNSPECIFIED (2) Elevated d-dimer Current Visit: Yes Status: Acute Assessment & Plan: Since his CP resolved, will not pursue further testing to r/o PE. Likely elevated due to his Crohn's disease. Code(s): R79.89 - OTHER SPECIFIED ABNORMAL FINDINGS OF BLOOD CHEMISTRY (3) Hypokalemia, gastrointestinal losses Current Visit: Yes Status: Acute Assessment & Plan: Pt ran out of his potassium! I have sent 1 mo rx to the pharmacy. Once repleted into near normal range here, will d/c pt to home. Code(s): E87.6 - HYPOKALEMIA (4) Crohns disease Current Visit: No Status: Chronic Qualifiers: Gastrointestinal tract location: unspecified location Digestive disease complication type: unspecified complication Qualified Code(s): K50.919 - Crohn 's disease, unspecified, with unspecified complications Code(s): K50.90 - CROHN'S DISEASE, UNSPECIFIED, WITHOUT COMPLICATIONS (5) Weakness Current Visit: Yes Status: Resolved Code(s): R53.1 - WEAKNESS Hospital Summary - Hospital Course Hospital Course: Pt is a 53 yo male pt of Dr. Oconnor with Crohn's disease and chronic hypokalemia who was admitted through ER with CP, potassium of 2.7, and elevated D-dimer. No CTA chest done due to IV dye allergy. Troponins neg x 5. Potassium repleted; repeat potassium is 3.0. His sx have completely resolved - no chest pain. He notes similar episodes in the past with low K. Will be discharged to home today once his potassium has normalized. He will be sent with his home rx for potassium as apparently it alone didn't get filled after his recent visit with PCP. - Vitals & Intake/Output Vital Signs: Vital Signs Temperature 98.8 F 12/16/18 12:00 Pulse Rate 84 12/16/18 12:00 Respiratory Rate 16 12/16/18 12:00 Blood Pressure 123/66 12/16/18 12:00 O2 Sat by Pulse Oximetry 98 12/16/18 12:00 Intake & Output: Intake & Output 12/14/18 12/15/18 12/16/18 12/17/18 11:59 11:59 11:59 11:59 Intake Total 1918 Output Total 1025 1300 Balance 893 -1300 Weight 52.9 kg - Lab Result Diagrams: 12/16/18 06:25 12/16/18 06:25 Lab Results-Last 24 Hrs: Lab Results-Last 24 Hours 0612/15/18 12/15/18 Range/Units 17:50 17:50 17:50 WBC 12.5 H (4.0-10.5) K/mm3 RBC 4.13 (4.1-5.6) M/mm3 Hgb 13.5 (12.5-18.0) gm/dl Hct 37.7 L (42-50) % MCV 91.3 (78-100) fl MCH 32.7 H (26-32) pg MCHC 35.8 (32-36) g/dl RDW 13.4 (11.5-14.0) % Plt Count 291 (150-450) K/mm3 MPV 9.9 H (6-9.5) fl Gran % 72.8 H (36.0-66.0) % Eos # (Auto) 0.22 (0-0.5) Absolute Lymphs (auto) 2.11 (1.0-4.6) Absolute Monos (auto) 1.05 (0.0-1.3) Lymphocytes % 16.9 L (24.0-44.0) % Monocytes % 8.4 (0.0-12.0) % Eosinophils % 1.8 (0.00-5.0) % Basophils % 0.1 (0.0-0.4) % Absolute Granulocytes 9.11 H (1.4-6.9) Basophils # 0.01 (0-0.4) D-Dimer 1240 H* (215-500) ng/mL Sodium 138 (137-145) mmol/L Potassium 2.7 L* (3.5-5.1) mmol/L Chloride 102 (98-107) mmol/L Carbon Dioxide 25 (22-30) mmol/L Anion Gap 13.3 (5-15) MEQ/L BUN 6 L (9-20) mg/dL Creatinine 0.89 (0.66-1.25) mg/dL Estimated GFR > 60.0 ML/MIN Glucose 104 (74-106) mg/dL Calcium 9.0 (8.4-10.2) mg/dL Total Bilirubin 0.40 (0.2-1.3) mg/dL AST 19 (17-59) U/L ALT 13 (0-50) U/L Alkaline Phosphatase 104 (38-126) U/L Troponin I (0.000-0.034) ng/mL Serum Total Protein 6.4 (6.3-8.2) g/dL Albumin 3.5 (3.5-5.0) g/dL 12/15/18 12/15/18 12/15/18 Range/Units 17:50 20:57 23:47 WBC (4.0-10.5) K/mm3 RBC (4.1-5.6) M/mm3 Hgb (12.5-18.0) gm/dl Hct (42-50) % MCV (78-100) fl MCH (26-32) pg MCHC (32-36) g/dl RDW (11.5-14.0) % Plt Count (150-450) K/mm3 MPV (6-9.5) fl Gran % (36.0-66.0) % Eos # (Auto) (0-0.5) Absolute Lymphs (auto) (1.0-4.6) Absolute Monos (auto) (0.0-1.3) Lymphocytes % (24.0-44.0) % Monocytes % (0.0-12.0) % Eosinophils % (0.00-5.0) % Basophils % (0.0-0.4) % Absolute Granulocytes (1.4-6.9) Basophils # (0-0.4) D-Dimer (215-500) ng/mL Sodium (137-145) mmol/L Potassium (3.5-5.1) mmol/L Chloride (98-107) mmol/L Carbon Dioxide (22-30) mmol/L Anion Gap (5-15) MEQ/L BUN (9-20) mg/dL Creatinine (0.66-1.25) mg/dL Estimated GFR ML/MIN Glucose (74-106) mg/dL Calcium (8.4-10.2) mg/dL Total Bilirubin (0.2-1.3) mg/dL AST (17-59) U/L ALT (0-50) U/L Alkaline Phosphatase (38-126) U/L Troponin I < 0.012 < 0.012 < 0.012 (0.000-0.034) ng/mL Serum Total Protein (6.3-8.2) g/dL Albumin (3.5-5.0) g/dL 12/16/18 12/16/18 12/16/18 Range/Units 03:19 06:25 06:25 WBC 10.2 (4.0-10.5) K/mm3 RBC 3.68 L (4.1-5.6) M/mm3 Hgb 11.9 L (12.5-18.0) gm/dl Hct 34.4 L (42-50) % MCV 93.5 (78-100) fl MCH 32.3 H (26-32) pg MCHC 34.6 (32-36) g/dl RDW 13.5 (11.5-14.0) % Plt Count 254 (150-450) K/mm3 MPV 10.3 H (6-9.5) fl Gran % 72.2 H (36.0-66.0) % Eos # (Auto) 0.25 (0-0.5) Absolute Lymphs (auto) 1.60 (1.0-4.6) Absolute Monos (auto) 0.96 (0.0-1.3) Lymphocytes % 15.7 L (24.0-44.0) % Monocytes % 9.4 (0.0-12.0) % Eosinophils % 2.4 (0.00-5.0) % Basophils % 0.3 (0.0-0.4) % Absolute Granulocytes 7.37 H (1.4-6.9) Basophils # 0.03 (0-0.4) D-Dimer (215-500) ng/mL Sodium (137-145) mmol/L Potassium (3.5-5.1) mmol/L Chloride (98-107) mmol/L Carbon Dioxide (22-30) mmol/L Anion Gap (5-15) MEQ/L BUN (9-20) mg/dL Creatinine (0.66-1.25) mg/dL Estimated GFR ML/MIN Glucose (74-106) mg/dL Calcium (8.4-10.2) mg/dL Total Bilirubin (0.2-1.3) mg/dL AST (17-59) U/L ALT (0-50) U/L Alkaline Phosphatase (38-126) U/L Troponin I < 0.012 < 0.012 (0.000-0.034) ng/mL Serum Total Protein (6.3-8.2) g/dL Albumin (3.5-5.0) g/dL 12/16/18 Range/Units 06:25 WBC (4.0-10.5) K/mm3 RBC (4.1-5.6) M/mm3 Hgb (12.5-18.0) gm/dl Hct (42-50) % MCV (78-100) fl MCH (26-32) pg MCHC (32-36) g/dl RDW (11.5-14.0) % Plt Count (150-450) K/mm3 MPV (6-9.5) fl Gran % (36.0-66.0) % Eos # (Auto) (0-0.5) Absolute Lymphs (auto) (1.0-4.6) Absolute Monos (auto) (0.0-1.3) Lymphocytes % (24.0-44.0) % Monocytes % (0.0-12.0) % Eosinophils % (0.00-5.0) % Basophils % (0.0-0.4) % Absolute Granulocytes (1.4-6.9) Basophils # (0-0.4) D-Dimer (215-500) ng/mL Sodium 141 (137-145) mmol/L Potassium 3.0 L (3.5-5.1) mmol/L Chloride 109 H (98-107) mmol/L Carbon Dioxide 22 (22-30) mmol/L Anion Gap 12.0 (5-15) MEQ/L BUN 6 L (9-20) mg/dL Creatinine 0.81 (0.66-1.25) mg/dL Estimated GFR > 60.0 ML/MIN Glucose 92 (74-106) mg/dL Calcium 8.2 L (8.4-10.2) mg/dL Total Bilirubin (0.2-1.3) mg/dL AST (17-59) U/L ALT (0-50) U/L Alkaline Phosphatase (38-126) U/L Troponin I (0.000-0.034) ng/mL Serum Total Protein (6.3-8.2) g/dL Albumin (3.5-5.0) g/dL - Radiology Exams Ordered Rad Exams-Entire Visit: Radiology Procedures Category Date Time Status CHEST 2 VIEWS (PA AND LAT) Stat Exams 12/15/18 17:44 Completed - Procedures and Test Procedures and Tests throughout Hospitalization: Therapy Orders & Screens 12/15/18 19:36 Oxygen Nasal Cannula 2 lpm Comment: 12/15/18 20:43 Peak Expiratory Flow Rate ONCE Comment: Reason For Exam: Diagnosis: chest pain, hypokalemia, Elevated D dimer Respiratory Therapy Assessment DAILY Comment: Diagnosis: chest pain, hypokalemia, Elevated D dimer - Discharge Disposition: Home, Self-Care Condition: Good Prescriptions: New Potassium Chloride [K-Dur] 40 meq PO BID #120 tab.er.prt Continue Magnesium Oxide 1 tab PO BID Mesalamine [Pentasa] 500 mg PO TID Cyanocobalamin 1000 Mcg/ml [Cyanocobalamin B-12 1000 MCG/ML] 1,000 mcg IJ .MONTHLY Instructions: Chest Pain Forms: Discharge Instructions
[2018-12-16 16:50] VITALS: BP 124/70; PULSE 75; O2SAT 99
[2018-12-16] MEDS ORDERED: ENOXAPARIN SODIUM SQ SCH (22:00)
[2018-12-16] MEDS ORDERED: MAG-OX 400 PO SCH (22:00)
== END 2018-12-16 16:40 | disposition home or self-care (01) ==
LOC: ED 17:29 → MED SURG 18:59 → UNDODISOB 12-16 16:40
PROVIDERS: ADMIT Family Medicine; ATTEND Family Medicine
DX: R07.9 Chest pain, unspecified (principal); E87.6 Hypokalemia; E83.42 Hypomagnesemia; R79.89 Other specified abnormal findings of blood chemistry; R53.1 Weakness; K50.90 Crohn's disease, unspecified, without complications; Z79.899 Other long term (current) drug therapy; F17.200 Nicotine dependence, unspecified, uncomplicated
CPT/HCPCS: 36415; 71046; 80048; 80053; 84132; 84484; 85025; 85379; 93005; 93268; 94150; 94640; 94762; 96372; 99284; G0378; 96365; 99285; J1650; J1956; J3480; A9270-GY

== ENCOUNTER 2019-02-25 20:59 | Observation (INO) | payer OTHER ==
--- NOTE | 2019-02-25 22:40 | ERPHSYRPT ---
- History of Present Illness Time Seen by Provider: 02/25/19 22:31 Source: patient Exam Limitations: no limitations Patient Subjective Stated Complaint: pt states, "I had bloodwork drawn today after appt with Dr. Foster. They called me later and told me my potassium was low and I needed to come to the hospital'. Triage Nursing Assessment: pt alert and oriented x3, pleasant. pt denies any pain. Lungs clear, heart tones reg. abd flat and soft with active bs x4 quad. Pt here for potassium per Dr. Foster. Physician History: This is a 53-year-old white male who apparently was noted by Dr. Foster on lab draw to have a low potassium he was sent to the emergency room. Patient states he saw Dr. Foster this afternoon and he was notified that his potassium was low. Patient denies any complaints at this time Past medical history includes Crohn's, anxiety, depression, chronic abdominal pain Past surgical history includes tonsillectomy appendectomy colon resection small bowel resection Timing/Duration: today Severity: moderate Modifying Factors: Improves With: nothing Associated Symptoms: abdominal pain (history of chronic abdominal pain), other ( low potassium on lab draw this afternoon), No nausea, No vomiting, No shortness of breath, No heartburn, No diaphoresis, No cough, No chills, No chest pain, No fever, No headaches, No loss of appetite, No malaise, No rash, No syncope, No seizure, No weakness Allergies/Adverse Reactions: buspirone [From BuSpar] Allergy (Severe, Verified 12/15/18 17:42) Swelling Penicillins Allergy (Verified 12/14/18 07:37) IV DYE Adverse Reaction (Uncoded 12/14/18 07:37) Home Medications: Magnesium Oxide 1 tab PO BID 11/26/14 [History] Cyanocobalamin 1000 Mcg/ml [Cyanocobalamin B-12 1000 MCG/ML] 1,000 mcg IJ .MONTHLY 08/13/15 [History] Mesalamine [Pentasa] 500 mg PO TID 08/13/15 [History] Hx Tetanus, Diphtheria Vaccination/Date Given: Yes Hx Influenza Vaccination/Date Given: Yes Hx Pneumococcal Vaccination/Date Given: Yes Immunizations Up to Date: Yes - Review of Systems Constitutional: No Fever, No Chills Eyes: No Symptoms Ears, Nose, & Throat: No Symptoms Respiratory: No Cough, No Dyspnea Cardiac: No Chest Pain, No Edema, No Syncope Abdominal/Gastrointestinal: No Abdominal Pain, No Nausea, No Vomiting, No Diarrhea Genitourinary Symptoms: No Dysuria Musculoskeletal: No Back Pain, No Neck Pain Skin: No Rash Neurological: No Dizziness, No Focal Weakness, No Sensory Changes Psychological: No Symptoms Endocrine: No Symptoms All Other Systems: Reviewed and Negative - Past Medical History Pertinent Past Medical History: Yes Neurological History: No Pertinent History ENT History: No Pertinent History Cardiac History: No Pertinent History Respiratory History: No Pertinent History Endocrine Medical History: No Pertinent History Musculoskeletal History: No Pertinent History GI Medical History: Crohns Disease History: No Pertinent History Psycho-Social History: Anxiety, Depression Male Reproductive Disorders: No Pertinent History Other Medical History: chronic abd pain - Past Surgical History Past Surgical History: Yes Neuro Surgical History: No Pertinent History Cardiac: No Pertinent History Respiratory: No Pertinent History Gastrointestinal: Appendectomy, Colon Resection Genitourinary: No Pertinent History Musculoskeletal: No Pertinent History Male Surgical History: No Pertinent History Other Surgical History: small bowel resection - Social History Smoking Status: Current every day smoker How long have you smoked: 37 yrs Exposure to second hand smoke: Yes Drug Use: none Patient Lives Alone: Yes - Nursing Vital Signs Nursing Vital Signs: Initial Vital Signs Temperature 98.1 F 02/25/19 20:59 Pulse Rate 69 02/25/19 20:59 Respiratory Rate 19 02/25/19 20:59 Blood Pressure 128/78 02/25/19 20:59 O2 Sat by Pulse Oximetry 98 02/25/19 20:59 Pain Scale Pain Intensity 0 - Physical Exam General Appearance: no apparent distress, alert Eye Exam: PERRL/EOMI, eyes nml inspection Ears, Nose, Throat Exam: normal ENT inspection, TMs normal, pharynx normal, moist mucous membranes Neck Exam: normal inspection, non-tender, supple, full range of motion Respiratory Exam: normal breath sounds, lungs clear, No respiratory distress Cardiovascular Exam: regular rate/rhythm, normal heart sounds, normal peripheral pulses, capillary refill <2 sec Gastrointestinal/Abdomen Exam: soft, normal bowel sounds, No tenderness, No mass Back Exam: normal inspection, normal range of motion, No CVA tenderness, No vertebral tenderness Extremity Exam: normal inspection, normal range of motion, pelvis stable Neurologic Exam: alert, oriented x 3, cooperative, qi specialist II-XII nml as tested, normal mood/affect, nml cerebellar function, nml station & gait, sensation nml, No motor deficits Skin Exam: normal color, warm, dry, No rash Lymphatic Exam: No adenopathy SpO2 Interpretation: normal (98%) SpO2: 98 - Course Nursing assessment & vital signs reviewed: Yes EKG Interpreted by Me: RATE (55 bpm), Sinus Charly, NORMAL AXIS, Other (EKG: Sinus bradycardia, normal axis, right ventricular hypertrophy, no acute ST or T wave changes noted) - Radiology Exams Chest X-ray Interpretation: Interpreted by me (COPD, no acute disease process noted) Ordered Tests: Active Orders 24 hr Category Date Time Status EKG-ER Only STAT Care 02/25/19 22:34 Active IV Insertion STAT Care 02/25/19 22:34 Active CHEST 1 VIEW (PORTABLE) Stat Exams 02/25/19 23:01 Taken BMP Stat Lab 02/25/19 22:15 Completed Medication Summary Generic Name Dose Route Start Last Admin Trade Name Freq PRN Reason Stop Dose Admin Potassium Chloride 100 mls @ 50 mls/hr 02/25/19 23:45 Potassium Chloride 20 Meq In Water 100ml IV 02/26/19 03:44 Q2H JOSE M Sodium Chloride 1,000 mls @ 100 mls/hr 02/25/19 23:45 Sodium Chloride 0.9% 1000 Ml IV 03/27/19 23:44 .Q10H [facility] Lab/Rad Data: Laboratory Result Diagrams 02/25/19 22:15 Laboratory Results 02/25/19 Range/Units 22:15 Sodium 139 (137-145) mmol/L Potassium 2.4 L* (3.5-5.1) mmol/L Chloride 106 (98-107) mmol/L Carbon Dioxide 25 (22-30) mmol/L Anion Gap 10.6 (5-15) MEQ/L BUN 3 L (9-20) mg/dL Creatinine 0.89 (0.66-1.25) mg/dL Estimated GFR > 60.0 ML/MIN Glucose 82 (74-106) mg/dL Calcium 9.0 (8.4-10.2) mg/dL - Progress Progress: improved Progress Note: 02/25/19 23:46 Patient is BMP is obtained potassium is verified at 2.4 I discussed the patient's case with Dr. Oconnor will place patient on observation telemetry will provide patient with IV normal saline I've written for Yovani portilloer 40 mEq Will order magnesium level and electrolytes for the morning EKG has been obtained remarkable for sinus bradycardia 55 beats per minute normal axis right ventricular hypertrophy no acute ST or T wave changes Chest x-ray remarkable for COPD no acute disease process - Departure Departure Disposition: Observation Clinical Impression: Hypokalemia Condition: Fair Critical Care Time: No Referrals: ENEDELIA OCONNOR [Primary Care Provider] -
[2019-02-25 22:55] LABS: ANION GAP 10.6 MEQ/L (5-15); BLOOD UREA NITROGEN 3 mg/dL (9-20); CHLORIDE 106 mmol/L (98-107); Carbon Dioxide 25 mmol/L (22-30); Creatinine 1 0.89 mg/dL (0.66-1.25); Glucose 82 mg/dL (74-106); SODIUM 139 mmol/L (137-145)
[2019-02-25 23:03] LABS: Potassium 2.4 mmol/L (3.5-5.1)
[2019-02-25] MEDS ORDERED: Sodium Chloride 0.9% 1000 ML 1,000 ML IV SCH (23:45)
[2019-02-26] MEDS ORDERED: Sodium Chloride 0.9% 1000 ML 1,000 ML ONE (00:09)
[2019-02-26] MEDS: POTASSIUM CHLORIDE 20 mEq IN WATER 100ML 100 ML IV SCH ×2 (00:10→02:29)
[2019-02-26] MEDS ORDERED: Sodium Chloride 0.9% 1000 ML 1,000 ML IV SCH (00:48)
[2019-02-26] MEDS ORDERED: DUONEB 0.5-3 MG/3 ml Neb IH PRN (00:48)
[2019-02-26 05:41] LABS: ALBUMIN 3.1 g/dL (3.5-5.0); ALKALINE PHOSPHATASE 98 U/L (38-126); ANION GAP 7.2 MEQ/L (5-15); BLOOD UREA NITROGEN 3 mg/dL (9-20); CHLORIDE 110 mmol/L (98-107); Calcium 8.7 mg/dL (8.4-10.2); Carbon Dioxide 26 mmol/L (22-30); Creatinine 1 0.87 mg/dL (0.66-1.25); Glucose 59 mg/dL (74-106); MAGNESIUM 1.7 mg/dL (1.6-2.3); SGOT/AST 20 U/L (17-59); SGPT/ALT 14 U/L (0-50); SODIUM 141 mmol/L (137-145); Total Protein 5.7 g/dL (6.3-8.2)
[2019-02-26 05:48] LABS: Potassium 3.2 mmol/L (3.5-5.1)
[2019-02-26] MEDS ORDERED: Cyanocobalamin B-12 1000 MCG/ML IJ SCH (08:45)
--- NOTE | 2019-02-26 08:53 | XRAY ---
Indication: Low potassium. Comparison: December 15, 2018. Portable chest remains hyperinflated and clear. Heart and mediastinal structures within normal limits. No new/acute findings.
[2019-02-26] MEDS ORDERED: MAG-OX 400 PO SCH (10:00)
[2019-02-26] MEDS ORDERED: Klor Con 10 MEQ PO SCH (10:00)
[2019-02-26] MEDS ORDERED: MESALAMINE 500 MG PO SCH (10:00)
--- NOTE | 2019-02-26 10:04 | SSS ---
DISCHARGE DIAGNOSES: 1) HYPOKALEMIA. 2) CROHN'S COLITIS. 3) ANXIETY. 4) DEPRESSION. HISTORY: The patient is a 53 year-old white male patient with chronic abdominal pain which is felt to be secondary to Crohn's colitis. The patient has been consulted by Dr. Foster. The patient went to his nurse practitioner yesterday morning and had blood work done and insisted the patient get further evaluation and eventual colonoscopy. On that blood work the patient was found to have a potassium of 2.5. He was contacted by Dr. Foster's office and asked to proceed to the emergency room for evaluation and management of hypokalemia. The patient was subsequently admitted to the hospital for IV potassium repletion. PAST MEDICAL/SURGICAL HISTORY: Significant for tonsillectomy, appendectomy, partial colon and small bowel resection. MEDICATIONS: Magnesium, B12, Pentasa 5 mg t.i.d. ALLERGIES: BUSPAR, PENICILLIN, IV DYE. PHYSICAL EXAMINATION: His vital signs on admission showed temperature 98.1F, pulse 69, respiratory rate 19 and blood pressure 128/78. O2 saturation 98%. HEENT: Normocephalic, atraumatic. Pupils equal round reactive to light. Extraocular movements intact. Oropharynx is pink and moist. NECK: Supple without lymphadenopathy, thyromegaly or JVD. CHEST: Clear to auscultation. HEART: Regular rate and rhythm. ABDOMEN: Soft. No palpable masses were felt. EXTREMITIES: Without cyanosis, clubbing or edema. NEUROLOGIC: The patient is alert and oriented x3. LAB DATA AND TESTS: Showed initial potassium 2.5. His repeat showed his glucose to be 59 fasting, BUN 3, creatinine 0.87. Sodium 141. Potassium was up to 3.2 after potassium rider. His chloride was 110, bicarb 26. His liver enzymes were normal. The patient's EKG showed normal sinus rhythm slightly low at 55 beats/minute otherwise no significant ST-T wave changes were noted. HOSPITAL COURSE: After the patient was admitted to the hospital for IV potassium repletion by the next morning he was feeling fine and in fact he felt no problems on treating his low potassium. He denied any vomiting or diarrhea problems. The patient is felt to be ready for discharge home at this time. He will be given potassium at 20 mEq t.i.d. for the next six days and be seen in my office again on Monday and we will recheck his levels again at that time. He also has a pending appointment to go back and see Dr. Foster for completion of his evaluation for Crohn's colitis.
[2019-02-26 10:06] LABS: BASOPHIL % 0.3 % (0.0-0.4); Basophil (Absolute #) 0.03 (0-0.4); Eosinophil % 3.9 % (0.00-5.0); Eosinophil (Absolute #) 0.34 (0-0.5); Granulocyte Absolute (ANC) 5.34 (1.4-6.9); Granulocytes % 61.9 % (36.0-66.0); Hematocrit 37.6 % (42-50); Lymphocyte (Absolute #) 2.05 (1.0-4.6); Lymphocytes % 23.8 % (24.0-44.0); Mean Cell Volume 92.4 fl (78-100); Mean Corpuscular Hemoglobin 31.9 pg (26-32); Mean Corpuscular Hgb Concent. 34.6 g/dl (32-36); Mean Platelet Volume 10.5 fl (6-9.5); Monocyte (Absolute #) 0.87 (0.0-1.3); Monocytes % 10.1 % (0.0-12.0); Platelet Count 270 K/mm3 (150-450); Red Blood Count 4.07 M/mm3 (4.1-5.6); Red Cell Distribution Width 14.7 % (11.5-14.0); White Blood Count 8.6 K/mm3 (4.0-10.5)
[2019-02-26] MEDS ORDERED: Klor Con 10 MEQ PO ONE ×2 (10:13→10:34)
[2019-02-26] MEDS ORDERED: MAG-OX 400 ONE (10:13)
[2019-02-26] MEDS ORDERED: POTASSIUM CHLORIDE 20 mEq IN WATER 100ML 200 ML IV ONE (10:54)
[2019-02-26] MEDS: POTASSIUM CHLORIDE 20 mEq IN WATER 100ML 20 MEQ/100 ML BAG IV SCH ×2 (10:56→12:53)
[2019-02-26 12:19] VITALS: BP 106/54; PULSE 68; O2SAT 97
== END 2019-02-26 15:30 | disposition home or self-care (01) ==
LOC: ED 20:59 → MED SURG 02-26 00:35
PROVIDERS: ADMIT Family Medicine; ATTEND Family Medicine
DX: E87.6 Hypokalemia (principal); K50.90 Crohn's disease, unspecified, without complications; F41.8 Other specified anxiety disorders; Z79.899 Other long term (current) drug therapy
CPT/HCPCS: 36000; 36415; 71045; 80048; 80053; 83735; 84132; 85025; 93005; 93268; 96360; 96365; 99284; G0378; 99285; J3480; A9270-GY

== ENCOUNTER 2019-06-26 15:05 | Observation (INO) | payer OTHER ==
--- NOTE | 2019-06-26 15:14 | ERPHSYRPT ---
- History of Present Illness Time Seen by Provider: 06/26/19 15:14 Historian: patient Exam Limitations: no limitations Physician History: 53 y/o white male, with h/o inflammatory bowel dz(he believes ulcerative colitis ) on pentasa, presents with worsening left upper quadrant abd pain over 9 to 10 days. pt had one episode of vomiting last monday. he has had intermittent diarrheal stools over this time. pt did not undergo a colonoscopy in 03/04. he states surgeon cancelled scheduled procedures. there has been some weight loss but unclear. possibly 140 pounds down to 119 pounds since his last bowel resection in 2013 for bowel obstruction. another similar procedure for obstruction in 1998. Timing/Duration: day(s) ( to ) Quality: pressure Abdominal Pain Onset Location: [facility] Pain Radiation: no radiation Severity of Pain-Max: mild Severity of Pain-Current: mild Modifying Factors: Improves With: vomiting Associated Symptoms: diarrhea, nausea, vomiting Previous symptoms: no prior history Allergies/Adverse Reactions: buspirone [From BuSpar] Allergy (Severe, Verified 06/26/19 15:38) Swelling Penicillins Allergy (Verified 06/26/19 15:38) IV DYE Adverse Reaction (Uncoded 12/14/18 07:37) Home Medications: Cyanocobalamin 1000 Mcg/ml [Cyanocobalamin B-12 1000 MCG/ML] 1,000 mcg IJ .MONTHLY 08/13/15 [History] Mesalamine [Pentasa] 1,000 mg PO TID 08/13/15 [History] Potassium Chloride [K-Dur] 40 meq PO BID 06/26/19 [History] Hx Tetanus, Diphtheria Vaccination/Date Given: Yes Hx Influenza Vaccination/Date Given: Yes Hx Pneumococcal Vaccination/Date Given: Yes - Review of Systems Constitutional: No Symptoms Eyes: No Symptoms Ears, Nose, & Throat: No Symptoms Respiratory: No Symptoms Cardiac: No Symptoms Abdominal/Gastrointestinal: Abdominal Pain, Nausea, Vomiting, Diarrhea, Constipation Genitourinary Symptoms: No Symptoms Musculoskeletal: No Symptoms Skin: No Symptoms Neurological: No Symptoms Psychological: No Symptoms Endocrine: No Symptoms Hematologic/Lymphatic: No Symptoms Immunological/Allergic: No Symptoms All Other Systems: Reviewed and Negative - Past Medical History Pertinent Past Medical History: Yes Neurological History: No Pertinent History ENT History: No Pertinent History Cardiac History: No Pertinent History Respiratory History: No Pertinent History Endocrine Medical History: No Pertinent History Musculoskeletal History: No Pertinent History GI Medical History: Crohns Disease History: No Pertinent History Psycho-Social History: Anxiety, Depression Male Reproductive Disorders: No Pertinent History Other Medical History: chronic abd pain - Past Surgical History Past Surgical History: Yes Neuro Surgical History: No Pertinent History Cardiac: No Pertinent History Respiratory: No Pertinent History Gastrointestinal: Appendectomy, Colon Resection Genitourinary: No Pertinent History Musculoskeletal: No Pertinent History Male Surgical History: No Pertinent History Other Surgical History: small bowel resection - Social History Smoking Status: Current every day smoker How long have you smoked: 37 yrs Exposure to second hand smoke: Yes Drug Use: none Patient Lives Alone: Yes - Nursing Vital Signs Nursing Vital Signs: Initial Vital Signs Temperature 97.3 F 06/26/19 15:16 Pulse Rate 76 06/26/19 15:16 Respiratory Rate 20 06/26/19 15:16 Blood Pressure 140/91 06/26/19 15:16 O2 Sat by Pulse Oximetry 99 06/26/19 15:16 Pain Scale Pain Intensity 0 - Physical Exam General Appearance: no apparent distress, alert, anxiety Eye Exam: PERRL/EOMI, eyes nml inspection Ears, Nose, Throat Exam: normal ENT inspection, moist mucous membranes Neck Exam: normal inspection, non-tender, supple, full range of motion Respiratory Exam: normal breath sounds, lungs clear, airway intact, No chest tenderness, No respiratory distress Cardiovascular Exam: regular rate/rhythm, normal heart sounds, normal peripheral pulses Gastrointestinal/Abdomen Exam: soft, normal bowel sounds, tenderness (luq), No guarding, No rebound Rectal Exam: not done Back Exam: normal inspection, normal range of motion, No CVA tenderness, No vertebral tenderness Extremity Exam: normal inspection, normal range of motion, pelvis stable Neurologic Exam: alert, oriented x 3, cooperative, panel coverer II-XII nml as tested Skin Exam: normal color, warm, dry Lymphatic Exam: No adenopathy SpO2 Interpretation: normal O2 Delivery: Room Air - Course Nursing assessment & vital signs reviewed: Yes Ordered Tests: Active Orders 24 hr Category Date Time Status IV Insertion STAT Care 06/26/19 15:29 Active ABDOMEN AND PELVIS W/0 CONTRAS [CT] Stat Exams 06/26/19 15:41 Completed AMYLASE Stat Lab 06/26/19 15:40 Completed CBC W DIFF Stat Lab 06/26/19 15:40 Completed CMP Stat Lab 06/26/19 15:40 Completed LIPASE Stat Lab 06/26/19 15:40 Completed Lactic Acid Stat Lab 06/26/19 15:54 Completed UA W/RFX UR CULTURE Stat Lab 06/26/19 15:40 Completed Transfer Order Routine Transfer 06/26/19 Ordered Medication Summary Discontinued Medications Generic Name Dose Route Start Last Admin Trade Name Freq PRN Reason Stop Dose Admin Hydromorphone HCl 0.5 mg 06/26/19 15:41 06/26/19 15:48 Hydromorphone 1 Mg/Ml Ampule IV 06/26/19 15:42 0.5 mg STAT ONE Administration Hydromorphone HCl Confirm 06/26/19 15:45 Hydromorphone 1 Mg/Ml Ampule Administered 06/26/19 15:46 Dose 1 mg .ROUTE .STK-MED ONE Sodium Chloride 1,000 mls @ 999 mls/hr 06/26/19 15:41 06/26/19 16:50 Sodium Chloride 0.9% 1000 Ml IV 06/26/19 16:41 Infused .Q1H1M STA Infusion Sodium Chloride Confirm 06/26/19 15:45 Sodium Chloride 0.9% 1000 Ml Administered 06/26/19 15:46 Dose 1,000 mls @ ud .ROUTE .STK-MED ONE Ondansetron HCl 4 mg 06/26/19 15:41 06/26/19 15:48 Zofran 4 Mg/2 Ml Vial IV 06/26/19 15:42 4 mg STAT ONE Administration Ondansetron HCl Confirm 06/26/19 15:44 Zofran 4 Mg/2 Ml Vial Administered 06/26/19 15:45 Dose 4 mg .ROUTE .STK-MED ONE Lab/Rad Data: Laboratory Result Diagrams 06/26/19 15:40 06/26/19 15:40 Laboratory Results 06/26/19 06/26/19 06/26/19 Range/Units 15:54 15:40 15:40 WBC (4.0-10.5) K/mm3 RBC (4.1-5.6) M/mm3 Hgb (12.5-18.0) gm/dl Hct (42-50) % MCV (78-100) fl MCH (26-32) pg MCHC (32-36) g/dl RDW (11.5-14.0) % Plt Count (150-450) K/mm3 MPV (6-9.5) fl Gran % (36.0-66.0) % Eos # (Auto) (0-0.5) Absolute Lymphs (auto) (1.0-4.6) Absolute Monos (auto) (0.0-1.3) Lymphocytes % (24.0-44.0) % Monocytes % (0.0-12.0) % Eosinophils % (0.00-5.0) % Basophils % (0.0-0.4) % Absolute Granulocytes (1.4-6.9) Basophils # (0-0.4) Sodium 140 (137-145) mmol/L Potassium 3.9 (3.5-5.1) mmol/L Chloride 108 H (98-107) mmol/L Carbon Dioxide 23 (22-30) mmol/L Anion Gap 12.8 (5-15) MEQ/L BUN 8 L (9-20) mg/dL Creatinine 0.94 (0.66-1.25) mg/dL Estimated GFR > 60.0 ML/MIN Glucose 128 H (74-106) mg/dL Lactic Acid 1.2 (0.4-2.0) Calcium 9.2 (8.4-10.2) mg/dL Total Bilirubin 0.60 (0.2-1.3) mg/dL AST 21 (17-59) U/L ALT 16 (0-50) U/L Alkaline Phosphatase 94 (38-126) U/L Serum Total Protein 7.2 (6.3-8.2) g/dL Albumin 3.8 (3.5-5.0) g/dL Amylase 72 (30-110) U/L Lipase 86 (23-300) U/L Urine Color YELLOW (YELLOW) Urine Appearance CLEAR (CLEAR) Urine pH 6.0 (5-6) Ur Specific [place] 1.011 (1.005-1.025) Urine Protein NEGATIVE (Negative) Urine Ketones NEGATIVE (NEGATIVE) Urine Blood NEGATIVE (0-5) Reji/ul Urine Nitrite NEGATIVE (NEGATIVE) Urine Bilirubin NEGATIVE (NEGATIVE) Urine Urobilinogen NEGATIVE (0-1) mg/dL Ur Leukocyte Esterase NEGATIVE (NEGATIVE) Urine WBC (Auto) 0-2 (0-5) /HPF Urine RBC (Auto) NONE (0-2) /HPF U Epithel Cells (Auto) NONE (FEW) /HPF Urine Bacteria (Auto) NONE (NEGATIVE) /HPF Urine Mucus (Auto) SLIGHT (NEGATIVE) /HPF Urine Culture Reflexed NO (NO) Urine Glucose NEGATIVE (NEGATIVE) mg/dL 06/26/19 Range/Units 15:40 WBC 9.7 (4.0-10.5) K/mm3 RBC 4.64 (4.1-5.6) M/mm3 Hgb 14.3 (12.5-18.0) gm/dl Hct 41.0 L (42-50) % MCV 88.4 (78-100) fl MCH 30.8 (26-32) pg MCHC 34.9 (32-36) g/dl RDW 14.2 H (11.5-14.0) % Plt Count 439 (150-450) K/mm3 MPV 9.4 (6-9.5) fl Gran % 66.8 H (36.0-66.0) % Eos # (Auto) 0.13 (0-0.5) Absolute Lymphs (auto) 2.24 (1.0-4.6) Absolute Monos (auto) 0.82 (0.0-1.3) Lymphocytes % 23.2 L (24.0-44.0) % Monocytes % 8.5 (0.0-12.0) % Eosinophils % 1.3 (0.00-5.0) % Basophils % 0.2 (0.0-0.4) % Absolute Granulocytes 6.45 (1.4-6.9) Basophils # 0.02 (0-0.4) Sodium (137-145) mmol/L Potassium (3.5-5.1) mmol/L Chloride (98-107) mmol/L Carbon Dioxide (22-30) mmol/L Anion Gap (5-15) MEQ/L BUN (9-20) mg/dL Creatinine (0.66-1.25) mg/dL Estimated GFR ML/MIN Glucose (74-106) mg/dL Lactic Acid (0.4-2.0) Calcium (8.4-10.2) mg/dL Total Bilirubin (0.2-1.3) mg/dL AST (17-59) U/L ALT (0-50) U/L Alkaline Phosphatase (38-126) U/L Serum Total Protein (6.3-8.2) g/dL Albumin (3.5-5.0) g/dL Amylase (30-110) U/L Lipase (23-300) U/L Urine Color (YELLOW) Urine Appearance (CLEAR) Urine pH (5-6) Ur Specific [place] (1.005-1.025) Urine Protein (Negative) Urine Ketones (NEGATIVE) Urine Blood (0-5) Reji/ul Urine Nitrite (NEGATIVE) Urine Bilirubin (NEGATIVE) Urine Urobilinogen (0-1) mg/dL Ur Leukocyte Esterase (NEGATIVE) Urine WBC (Auto) (0-5) /HPF Urine RBC (Auto) (0-2) /HPF U Epithel Cells (Auto) (FEW) /HPF Urine Bacteria (Auto) (NEGATIVE) /HPF Urine Mucus (Auto) (NEGATIVE) /HPF Urine Culture Reflexed (NO) Urine Glucose (NEGATIVE) mg/dL - Progress Progress: unchanged, pain not gone completely Progress Note: 06/26/19 17:[address] mathur who is covering for dr. ortega. i reviewed pt hx, condition, labs, and ct abd/pelvis results. he accepts pt for obs placement, bowel rest, iv hydration 06/26/19 17:15 Discussed with : Aruna Counseled pt/family regarding: lab results, diagnosis, rad results - Departure Departure Disposition: Observation Clinical Impression: Vomiting, Partial intestinal obstruction, Abdominal pain Condition: Stable Critical Care Time: No Referrals: ENEDELIA ORTEGA [Primary Care Provider] -
[2019-06-26] MEDS ORDERED: Hydromorphone 1 mg/ml Ampule IV ONE (15:41)
[2019-06-26] MEDS ORDERED: Sodium Chloride 0.9% 1000 ML 1,000 ML IV STA ×2 (15:41→17:36)
[2019-06-26] MEDS ORDERED: Zofran 4 MG/2 ML VIAL IV ONE (15:41)
[2019-06-26] MEDS ORDERED: Zofran 4 MG/2 ML VIAL ONE (15:44)
[2019-06-26] MEDS ORDERED: Sodium Chloride 0.9% 1000 ML 1,000 ML ONE (15:45)
[2019-06-26] MEDS ORDERED: Hydromorphone 1 mg/ml Ampule ONE (15:45)
[2019-06-26 15:51] LABS: Absolute Neutrophil Ct (ANC) 6.45 (1.4-6.9); BASOPHIL % 0.2 % (0.0-0.4); Basophil (Absolute #) 0.02 (0-0.4); Eosinophil % 1.3 % (0.00-5.0); Eosinophil (Absolute #) 0.13 (0-0.5); Hemoglobin 14.3 gm/dl (12.5-18.0); Lymphocyte (Absolute #) 2.24 (1.0-4.6); Lymphocytes % 23.2 % (24.0-44.0); Mean Cell Volume 88.4 fl (78-100); Mean Corpuscular Hemoglobin 30.8 pg (26-32); Mean Corpuscular Hgb Concent. 34.9 g/dl (32-36); Mean Platelet Volume 9.4 fl (6-9.5); Monocyte (Absolute #) 0.82 (0.0-1.3); Monocytes % 8.5 % (0.0-12.0); Neutrophil % 66.8 % (36.0-66.0); Platelet Count 439 K/mm3 (150-450); Red Blood Count 4.64 M/mm3 (4.1-5.6); Red Cell Distribution Width 14.2 % (11.5-14.0); White Blood Count 9.7 K/mm3 (4.0-10.5)
[2019-06-26 15:54] LABS: Appearance CLEAR (CLEAR); Bilirubin NEGATIVE (NEGATIVE); Blood NEGATIVE Ery/ul (0-5); Glucose NEGATIVE (NEGATIVE); Ketones NEGATIVE (NEGATIVE); Leukocyte Esterase NEGATIVE (NEGATIVE); Mucus SLIGHT /HPF (NEGATIVE); Nitrite NEGATIVE (NEGATIVE); Protein,Urine Dip NEGATIVE (Negative); Specific Gravity 1.011 (1.005-1.025); Urobilinogen NEGATIVE mg/dL (0-1); WBC 0-2 /HPF (0-5)
[2019-06-26 15:55] LABS: ALBUMIN 3.8 g/dL (3.5-5.0); ALKALINE PHOSPHATASE 94 U/L (38-126); AMYLASE 72 U/L (30-110); ANION GAP 12.8 MEQ/L (5-15); BLOOD UREA NITROGEN 8 mg/dL (9-20); CHLORIDE 108 mmol/L (98-107); Calcium 9.2 mg/dL (8.4-10.2); Carbon Dioxide 23 mmol/L (22-30); Creatinine 1 0.94 mg/dL (0.66-1.25); Glucose 128 mg/dL (74-106); LIPASE 86 U/L (23-300); Potassium 3.9 mmol/L (3.5-5.1); SGOT/AST 21 U/L (17-59); SGPT/ALT 16 U/L (0-50); SODIUM 140 mmol/L (137-145); Total Protein 7.2 g/dL (6.3-8.2)
--- NOTE | 2019-06-26 16:49 | XRAY ---
Indication: Left upper quadrant pain 8 days. Weight loss. Multiple contiguous axial images obtained through the abdomen and pelvis without contrast as ordered. Comparison: April 29, 2018. Lung bases demonstrates right middle lobe and left base fibrosis/scarring. Stable right middle lobe calcified granuloma. No infiltrate or effusion. Heart is not enlarged. Stable small hiatal hernia. Stomach and small/large bowel loops are again mildly fluid distended with synchronous fluid leveling, ileus versus gastroenterocolitis. Right mid abdomen bowel loop remains distended up to 5.5 cm with intact anastomosis. Obstruction not completely excluded in the right clinical setting. Previous appendectomy reported. No free fluid/air. Gallbladder again moderately distended without gallstones or biliary distention. Remaining liver, pancreas, spleen, adrenal glands, kidneys, ureters, and bladder appear unremarkable for noncontrast exam. There remains minimal aortoiliac calcifications without AAA. Osseous structures intact again with mild degenerative changes throughout the thoracolumbar spine. Impression: 1. Again fluid distended stomach and small/large bowel loops with synchronous fluid leveling, ileus versus gastroenterocolitis. Obstruction not completely excluded in the right clinical setting. 2. Stable distended gallbladder without gallstones. 3. Stable small hiatal hernia and right abdomen postsurgical changes. CTDI 2.55
[2019-06-26] MEDS ORDERED: DILAUDID 2 MG INJECTION IV PRN (17:36)
[2019-06-26] MEDS ORDERED: Zofran 4 MG/2 ML VIAL IV PRN (17:36)
[2019-06-26] MEDS ORDERED: FEVERALL 650 MG PR PRN (17:36)
[2019-06-26] MEDS: Sodium Chloride 0.9% 1000 ML 1,000 ML IV SCH (17:58)
[2019-06-27] MEDS: Sodium Chloride 0.9% 1000 ML 1,000 ML IV SCH ×2 (03:30→13:38)
[2019-06-27 04:57] LABS: Absolute Neutrophil Ct (ANC) 4.21 (1.4-6.9); BASOPHIL % 0.3 % (0.0-0.4); Basophil (Absolute #) 0.02 (0-0.4); Eosinophil % 1.5 % (0.00-5.0); Eosinophil (Absolute #) 0.11 (0-0.5); Hematocrit 35.6 % (42-50); Hemoglobin 12.2 gm/dl (12.5-18.0); Lymphocyte (Absolute #) 2.25 (1.0-4.6); Lymphocytes % 30.9 % (24.0-44.0); Mean Cell Volume 90.6 fl (78-100); Mean Corpuscular Hgb Concent. 34.3 g/dl (32-36); Monocytes % 9.6 % (0.0-12.0); Neutrophil % 57.7 % (36.0-66.0); Platelet Count 348 K/mm3 (150-450); Red Blood Count 3.93 M/mm3 (4.1-5.6); Red Cell Distribution Width 14.1 % (11.5-14.0); White Blood Count 7.3 K/mm3 (4.0-10.5)
[2019-06-27 05:16] LABS: ALBUMIN 2.9 g/dL (3.5-5.0); ALKALINE PHOSPHATASE 83 U/L (38-126); ANION GAP 8.1 MEQ/L (5-15); BLOOD UREA NITROGEN 10 mg/dL (9-20); CHLORIDE 114 mmol/L (98-107); Calcium 8.4 mg/dL (8.4-10.2); Carbon Dioxide 23 mmol/L (22-30); Creatinine 1 0.89 mg/dL (0.66-1.25); Glucose 79 mg/dL (74-106); Potassium 4.2 mmol/L (3.5-5.1); SGOT/AST 24 U/L (17-59); SGPT/ALT 16 U/L (0-50); SODIUM 141 mmol/L (137-145); Total Protein 5.9 g/dL (6.3-8.2)
[2019-06-27] MEDS ORDERED: Pepcid 20 MG VIAL IV SCH (10:00)
[2019-06-27] MEDS: PROTONIX 40 MG IV IV SCH (11:27)
[2019-06-28 04:56] LABS: Absolute Neutrophil Ct (ANC) 5.04 (1.4-6.9); BASOPHIL % 0.1 % (0.0-0.4); Basophil (Absolute #) 0.01 (0-0.4); Eosinophil (Absolute #) 0.16 (0-0.5); Hematocrit 32.9 % (42-50); Hemoglobin 11.3 gm/dl (12.5-18.0); Lymphocyte (Absolute #) 1.97 (1.0-4.6); Lymphocytes % 24.7 % (24.0-44.0); Mean Cell Volume 90.9 fl (78-100); Mean Corpuscular Hemoglobin 31.2 pg (26-32); Mean Corpuscular Hgb Concent. 34.3 g/dl (32-36); Mean Platelet Volume 9.1 fl (6-9.5); Monocyte (Absolute #) 0.78 (0.0-1.3); Monocytes % 9.8 % (0.0-12.0); Neutrophil % 63.4 % (36.0-66.0); Platelet Count 344 K/mm3 (150-450); Red Blood Count 3.62 M/mm3 (4.1-5.6); Red Cell Distribution Width 14.1 % (11.5-14.0)
[2019-06-28 05:24] LABS: ALBUMIN 2.9 g/dL (3.5-5.0); ALKALINE PHOSPHATASE 94 U/L (38-126); ANION GAP 10.3 MEQ/L (5-15); BLOOD UREA NITROGEN 5 mg/dL (9-20); CHLORIDE 114 mmol/L (98-107); Carbon Dioxide 21 mmol/L (22-30); Creatinine 1 0.92 mg/dL (0.66-1.25); Glucose 89 mg/dL (74-106); Potassium 3.5 mmol/L (3.5-5.1); SGOT/AST 20 U/L (17-59); SGPT/ALT 14 U/L (0-50); SODIUM 142 mmol/L (137-145); Total Protein 5.7 g/dL (6.3-8.2)
[2019-06-28] MEDS: PROTONIX 40 MG IV IV SCH (10:10)
[2019-06-28 11:22] VITALS: BP 117/60; PULSE 64; O2SAT 100
== END 2019-06-28 14:45 | disposition home or self-care (01) ==
LOC: ED 15:05 → MED SURG 17:35
PROVIDERS: ADMIT Family Medicine; ATTEND Family Medicine
DX: K56.7 Ileus, unspecified (principal); E46 Unspecified protein-calorie malnutrition; Z87.19 Personal history of other diseases of the digestive system; Z79.899 Other long term (current) drug therapy
CPT/HCPCS: 36000; 36415; 74176; 80053; 81001; 82150; 83605; 83690; 83735; 85025; 94760; 96374; 96375; 99285; G0378; J1170; J2405

== ENCOUNTER 2020-01-30 17:18 | Emergency (ER) | payer OTHER ==
[2020-01-30 17:36] VITALS: O2SAT 100
--- NOTE | 2020-01-30 17:36 | ERPHSYRPT ---
- History of Present Illness Time Seen by Provider: 01/30/20 17:36 Source: patient Exam Limitations: no limitations Physician History: This is a 54-year-old white male who, on occasion, has low potassium levels. He is taking daily potassium. Patient states that he is supposed to take 1 tablet twice a day but in the last 2 days he has been taking 2 potassium pills 3 times a day because of his symptoms of numbness around his nose upper lips and numbness in his left hand and bilateral feet. These are similar symptoms that he has had in the past associated with low potassium levels. He is here for a potassium check. Patient denies chest pain he denies shortness of breath. Patient denies visual changes and denies headache. Timing/Duration: day(s) (2 to 3 days) Severity: mild Associated Symptoms: denies symptoms, No nausea, No vomiting, No abdominal pain, No shortness of breath, No chest pain, No loss of appetite, No weakness Allergies/Adverse Reactions: buspirone [From BuSpar] Allergy (Severe, Verified 01/30/20 17:36) Swelling Penicillins Allergy (Verified 01/30/20 17:36) IV DYE Adverse Reaction (Uncoded 01/30/20 17:36) Home Medications: Potassium Chloride [K-Dur] 40 meq PO BID 06/26/19 [History] Hx Tetanus, Diphtheria Vaccination/Date Given: Yes Hx Influenza Vaccination/Date Given: Yes Hx Pneumococcal Vaccination/Date Given: Yes Travel Risk - International Travel Have you traveled outside of the country in past 3 weeks: No - Coronavirus Screening Are you exhibiting any of the following symptoms?: No Close contact with a COVID-19 positive Pt in past 14-21 Days: No - Review of Systems Constitutional: No Symptoms Eyes: No Symptoms Ears, Nose, & Throat: No Symptoms Respiratory: No Symptoms Cardiac: No Symptoms Abdominal/Gastrointestinal: No Symptoms Genitourinary Symptoms: No Symptoms Musculoskeletal: No Symptoms Skin: No Symptoms Neurological: Other (Numbness around nose upper lip, left hand and bilateral feet.) Psychological: No Symptoms Endocrine: No Symptoms Hematologic/Lymphatic: No Symptoms Immunological/Allergic: No Symptoms All Other Systems: Reviewed and Negative - Past Medical History Pertinent Past Medical History: Yes Neurological History: No Pertinent History ENT History: No Pertinent History Cardiac History: No Pertinent History Respiratory History: No Pertinent History Endocrine Medical History: No Pertinent History Musculoskeletal History: No Pertinent History GI Medical History: Crohns Disease History: No Pertinent History Psycho-Social History: Anxiety, Depression Male Reproductive Disorders: No Pertinent History Other Medical History: chronic abd pain - Past Surgical History Past Surgical History: Yes Neuro Surgical History: No Pertinent History Cardiac: No Pertinent History Respiratory: No Pertinent History Gastrointestinal: Appendectomy, Colon Resection Genitourinary: No Pertinent History Musculoskeletal: No Pertinent History Male Surgical History: No Pertinent History Other Surgical History: small bowel resection - Social History Smoking Status: Current every day smoker How long have you smoked: 37 yrs Exposure to second hand smoke: Yes Drug Use: none Patient Lives Alone: Yes - Nursing Vital Signs Nursing Vital Signs: Initial Vital Signs Temperature 97.9 F 01/30/20 17:27 Pulse Rate 71 01/30/20 17:27 Respiratory Rate 18 01/30/20 17:27 Blood Pressure 132/79 01/30/20 17:27 O2 Sat by Pulse Oximetry 100 01/30/20 17:27 Pain Scale Pain Intensity 0 - Physical Exam General Appearance: no apparent distress, alert, anxiety Eye Exam: PERRL/EOMI, eyes nml inspection Ears, Nose, Throat Exam: normal ENT inspection (Except no teeth), moist mucous membranes Neck Exam: normal inspection, non-tender, supple, full range of motion Respiratory Exam: normal breath sounds, lungs clear, airway intact, No chest tenderness, No respiratory distress Cardiovascular Exam: regular rate/rhythm, normal heart sounds, normal peripheral pulses Gastrointestinal/Abdomen Exam: soft, normal bowel sounds, No tenderness, No guarding, No rebound Extremity Exam: normal inspection, normal range of motion, pelvis stable Neurologic Exam: alert, oriented x 3, cooperative, patch sander II-XII nml as tested, normal mood/affect, nml cerebellar function, nml station & gait, sensation nml, No motor deficits, No sensory deficit, No disoriented, No confusion, No motor weakness, No slurred speech Skin Exam: normal color, warm, dry Lymphatic Exam: No adenopathy SpO2 Interpretation: normal O2 Delivery: Room Air - Course Nursing assessment & vital signs reviewed: Yes Ordered Tests: Active Orders 24 hr Category Date Time Status BMP Stat Lab 01/30/20 18:00 Completed MAGNESIUM Stat Lab 01/30/20 18:00 Completed Lab/Rad Data: Laboratory Result Diagrams 01/30/20 18:00 Laboratory Results 01/30/20 Range/Units 18:00 Sodium 140 (137-145) mmol/L Potassium 3.9 (3.5-5.1) mmol/L Chloride 116 H (98-107) mmol/L Carbon Dioxide 14 L* (22-30) mmol/L Anion Gap 13.2 (5-15) MEQ/L BUN 10 (9-20) mg/dL Creatinine 1.19 (0.66-1.25) mg/dL Estimated GFR > 60.0 ML/MIN Glucose 87 (74-106) mg/dL Calcium 8.5 (8.4-10.2) mg/dL Magnesium 0.9 L* (1.6-2.3) mg/dL - Departure Departure Disposition: Home Clinical Impression: Hypomagnesemia Condition: Stable Critical Care Time: No Referrals: ENEDELIA OCONNOR [Primary Care Provider] - Additional Instructions: Decrease your potassium to 1 tablet 3 times a day until you discuss with Dr. Oconnor further management. Drink plenty of fluids. Call Dr. Oconnor's office tomorrow to make arrangements for follow-up appointment. [facility]. Repeat your labs on MondayFebruary 01, 2020. Check in the emergency department for those results.
[2020-01-30 18:51] LABS: ANION GAP 13.2 MEQ/L (5-15); BLOOD UREA NITROGEN 10 mg/dL (9-20); CHLORIDE 116 mmol/L (98-107); Calcium 8.5 mg/dL (8.4-10.2); Creatinine 1 1.19 mg/dL (0.66-1.25); Glucose 87 mg/dL (74-106); Potassium 3.9 mmol/L (3.5-5.1); SODIUM 140 mmol/L (137-145)
[2020-01-30 18:54] LABS: Carbon Dioxide 14 mmol/L (22-30); MAGNESIUM 0.9 mg/dL (1.6-2.3)
[2020-01-30] MEDS ORDERED: MAG-OX 400 PO ONE (19:00)
[2020-01-30] MEDS ORDERED: MAG-OX 400 ONE (19:02)
[2020-01-30 19:09] VITALS: BP 122/87; PULSE 65
== END 2020-01-30 19:13 | disposition home or self-care (01) ==
LOC: ED 17:18
DX: E83.42 Hypomagnesemia (principal); R20.0 Anesthesia of skin; K50.90 Crohn's disease, unspecified, without complications; F41.9 Anxiety disorder, unspecified; F32.9 Major depressive disorder, single episode, unspecified
CPT/HCPCS: 36415; 80048; 83735; 99283; A9270-GY

== ENCOUNTER 2020-04-16 21:42 | Observation (INO) | payer OTHER ==
[2020-04-16] MEDS ORDERED: BABY ASPIRIN 81 MG CHEW PO ONE (22:03)
--- NOTE | 2020-04-16 22:23 | ERPHSYRPT ---
- History of Present Illness Time Seen by Provider: 04/16/20 21:55 Historian: patient Exam Limitations: no limitations Patient Subjective Stated Complaint: pt states he has been having intermittent chest pain for last 4 days. states pain has been worse tonight. chest pain radiates to bilat shoulders. also has pain in rt lower back for last 2 days. no difficulty urinating Triage Nursing Assessment: pt alert and oriented, answers questions approp. pt ambulatory with steady gait noted. respirations nonlabored with lungs cta. skin warm and dry. heart rate 64 on monitor, sinus rhythm. Physician History: This is a 54-year-old white male with a chronic smoking history of [id number] smoking of cigarettes and presents with 4-day history of central substernal chest pain that is sharp and has been intermittent over the last 4 days. There is radiation to bilateral shoulders. Patient has no documented history of any cardiac disease per his report. He does have a history of low potassium and low magnesium in the past. He is on magnesium and potassium replacement therapy. Patient has chronic abdominal pain but no significant pain in his abdomen today. He has a history of Crohn's disease as well as anxiety and depression. Timing/Duration: day(s) Activities at Onset: none Quality: sharpness Location: substernal, central Chest Pain Radiation: arm (Bilateral shoulders) Severity of Pain-Max: mild Severity of Pain-Current: mild Associated Symptoms: denies symptoms Prior Chest Pain/Cardiac Workup: no prior chest pain Nitro Today/Relief: no nitro taken today Aspirin Treatment Today: no aspirin today Allergies/Adverse Reactions: buspirone [From BuSpar] Allergy (Severe, Verified 04/16/20 22:03) Swelling Penicillins Allergy (Intermediate, Verified 04/16/20 22:03) Hives IV DYE Allergy (Intermediate, Uncoded 04/16/20 22:03) Swelling Home Medications: Potassium Chloride [K-Dur] 20 meq PO BID 06/26/19 [History] Cyanocobalamin 1000 Mcg/ml [Cyanocobalamin B-12 1000 MCG/ML] 1,000 mcg IM UD 04/16/20 [History] OLANZapine [Zyprexa] 2.5 mg PO DAILY 04/16/20 [History] Hx Tetanus, Diphtheria Vaccination/Date Given: Yes Hx Influenza Vaccination/Date Given: Yes Hx Pneumococcal Vaccination/Date Given: Yes Immunizations Up to Date: Yes Travel Risk - International Travel Have you traveled outside of the country in past 3 weeks: No - Coronavirus Screening Are you exhibiting any of the following symptoms?: No - Review of Systems Constitutional: No Symptoms Eyes: No Symptoms Ears, Nose, & Throat: No Symptoms Respiratory: No Symptoms Cardiac: Chest Pain Abdominal/Gastrointestinal: No Symptoms Genitourinary Symptoms: No Symptoms Musculoskeletal: No Symptoms Skin: No Symptoms Neurological: No Symptoms Psychological: No Symptoms Endocrine: No Symptoms Hematologic/Lymphatic: No Symptoms Immunological/Allergic: No Symptoms All Other Systems: Reviewed and Negative - Past Medical History Pertinent Past Medical History: Yes Neurological History: No Pertinent History ENT History: No Pertinent History Cardiac History: No Pertinent History Respiratory History: No Pertinent History Endocrine Medical History: No Pertinent History Musculoskeletal History: No Pertinent History GI Medical History: Crohns Disease History: No Pertinent History Psycho-Social History: Anxiety, Depression Male Reproductive Disorders: No Pertinent History Other Medical History: chronic abd pain - Past Surgical History Past Surgical History: Yes Neuro Surgical History: No Pertinent History Cardiac: No Pertinent History Respiratory: No Pertinent History Gastrointestinal: Appendectomy, Colon Resection Genitourinary: No Pertinent History Musculoskeletal: No Pertinent History Male Surgical History: No Pertinent History Other Surgical History: small bowel resection - Social History Smoking Status: Current every day smoker How long have you smoked: 35 yrs Exposure to second hand smoke: Yes Drug Use: none Patient Lives Alone: Yes - Nursing Vital Signs Nursing Vital Signs: Initial Vital Signs Temperature 97.5 F 04/16/20 21:42 Pulse Rate 70 04/16/20 21:42 Respiratory Rate 18 04/16/20 21:42 Blood Pressure 121/80 04/16/20 21:42 O2 Sat by Pulse Oximetry 99 04/16/20 21:42 Pain Scale Pain Intensity 1 - Physical Exam General Appearance: no apparent distress, alert, anxiety Eye Exam: PERRL/EOMI Ears, Nose, Throat Exam: normal ENT inspection, moist mucous membranes Neck Exam: normal inspection, non-tender, supple, full range of motion Respiratory Exam: chest tenderness, lungs clear, airway intact, No normal breath sounds, No respiratory distress Cardiovascular Exam: regular rate/rhythm, normal heart sounds, normal peripheral pulses Gastrointestinal/Abdomen Exam: soft, normal bowel sounds, No tenderness, No guarding Back Exam: normal inspection, normal range of motion, No CVA tenderness, No vertebral tenderness Extremity Exam: normal inspection, normal range of motion, pelvis stable Neurologic Exam: alert, oriented x 3, cooperative, 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 There are no acute ischemic changes on this EKG today or on the EKG dated 02/26/2019.) Ordered Tests: Medication Summary Discontinued Medications Generic Name Dose Route Start Last Admin Trade Name Freq PRN Reason Stop Dose Admin Acetaminophen 650 mg 04/17/20 00:14 Tylenol 325 Mg PO 05/17/20 00:13 Q4H PRN PRN PAIN, FEVER, HEADACHE Aspirin 324 mg 04/16/20 22:03 04/16/20 22:08 Baby Aspirin 81 Mg Chew PO 04/16/20 22:04 324 mg STAT ONE Administration Enoxaparin Sodium 60 mg 04/16/20 23:24 04/16/20 23:48 Enoxaparin Sodium SQ 04/16/20 23:25 60 mg STAT ONE Administration Enoxaparin Sodium 60 mg 04/17/20 10:00 04/17/20 10:58 Enoxaparin Sodium SQ 05/17/20 09:59 60 mg BID JOSE M Administration Morphine Sulfate 4 mg 04/16/20 23:24 04/16/20 23:48 Morphine Sulfate 4 Mg Inj IV 04/16/20 23:25 Not Given STAT ONE Morphine Sulfate Confirm 04/16/20 23:45 Morphine Sulfate 4 Mg Inj Administered 04/16/20 23:46 Dose 4 mg .ROUTE .STK-MED ONE Morphine Sulfate 4 mg 04/17/20 00:14 Morphine Sulfate 4 Mg Inj IV 04/22/20 00:13 Q6H PRN PRN PAIN Ondansetron HCl 4 mg 04/16/20 23:25 04/16/20 23:49 Zofran 4 Mg/2 Ml Vial IV 04/16/20 23:26 Not Given STAT ONE Ondansetron HCl Confirm 04/16/20 23:45 Zofran 4 Mg/2 Ml Vial Administered 04/16/20 23:46 Dose 4 mg .ROUTE .STK-MED ONE Ondansetron HCl 4 mg 04/17/20 00:14 Zofran 4 Mg/2 Ml Vial IV 05/17/20 00:13 Q6H PRN PRN NAUSEA/VOMITING Lab/Rad Data: Laboratory Result Diagrams 04/16/20 22:20 04/16/20 22:20 Laboratory Results 04/16/20 04/16/20 04/16/20 Range/Units 22:20 22:20 22:20 WBC (4.0-10.5) K/mm3 RBC (4.1-5.6) M/mm3 Hgb (12.5-18.0) gm/dl Hct (42-50) % MCV (78-100) fl MCH (26-32) pg MCHC (32-36) g/dl RDW (11.5-14.0) % Plt Count (150-450) K/mm3 MPV (7.5-11.0) fl Gran % (36.0-66.0) % Eos # (Auto) (0-0.5) Absolute Lymphs (auto) (1.0-4.6) Absolute Monos (auto) (0.0-1.3) Lymphocytes % (24.0-44.0) % Monocytes % (0.0-12.0) % Eosinophils % (0.00-5.0) % Basophils % (0.0-0.4) % Absolute Granulocytes (1.4-6.9) Basophils # (0-0.4) PT 13.1 H (8.83-12.87) SECONDS INR 1.16 (0.8-3.0) D-Dimer 2522 H* (215-500) ng/mL Sodium 135 L (137-145) mmol/L Potassium 4.0 (3.5-5.1) mmol/L Chloride 106 (98-107) mmol/L Carbon Dioxide 24 (22-30) mmol/L Anion Gap 8.7 (5-15) MEQ/L BUN 10 (9-20) mg/dL Creatinine 0.95 (0.66-1.25) mg/dL Estimated GFR > 60.0 ML/MIN Glucose 96 (74-106) mg/dL Calcium 9.1 (8.4-10.2) mg/dL Magnesium 1.9 (1.6-2.3) mg/dL Total Bilirubin 0.50 (0.2-1.3) mg/dL AST 29 (17-59) U/L ALT 22 (0-50) U/L Alkaline Phosphatase 113 (38-126) U/L Troponin I < 0.012 (0.000-0.034) ng/mL NT-Pro-B Natriuret Pep 114 (0-900) pg/mL Serum Total Protein 6.6 (6.3-8.2) g/dL Albumin 3.8 (3.5-5.0) g/dL 04/16/20 Range/Units 22:20 WBC 9.8 (4.0-10.5) K/mm3 RBC 4.31 (4.1-5.6) M/mm3 Hgb 13.3 (12.5-18.0) gm/dl Hct 39.7 L (42-50) % MCV 92.1 (78-100) fl MCH 30.9 (26-32) pg MCHC 33.5 (32-36) g/dl RDW 13.5 (11.5-14.0) % Plt Count 284 (150-450) K/mm3 MPV 9.9 (7.5-11.0) fl Gran % 67.5 H (36.0-66.0) % Eos # (Auto) 0.21 (0-0.5) Absolute Lymphs (auto) 2.12 (1.0-4.6) Absolute Monos (auto) 0.83 (0.0-1.3) Lymphocytes % 21.6 L (24.0-44.0) % Monocytes % 8.5 (0.0-12.0) % Eosinophils % 2.1 (0.00-5.0) % Basophils % 0.3 (0.0-0.4) % Absolute Granulocytes 6.62 (1.4-6.9) Basophils # 0.03 (0-0.4) PT (8.83-12.87) SECONDS INR (0.8-3.0) D-Dimer (215-500) ng/mL Sodium (137-145) mmol/L Potassium (3.5-5.1) mmol/L Chloride (98-107) mmol/L Carbon Dioxide (22-30) mmol/L Anion Gap (5-15) MEQ/L BUN (9-20) mg/dL Creatinine (0.66-1.25) mg/dL Estimated GFR ML/MIN Glucose (74-106) mg/dL Calcium (8.4-10.2) mg/dL Magnesium (1.6-2.3) mg/dL Total Bilirubin (0.2-1.3) mg/dL AST (17-59) U/L ALT (0-50) U/L Alkaline Phosphatase (38-126) U/L Troponin I (0.000-0.034) ng/mL NT-Pro-B Natriuret Pep (0-900) pg/mL Serum Total Protein (6.3-8.2) g/dL Albumin (3.5-5.0) g/dL - Progress Progress: improved, re-examined Air Movement: good Progress Note: 04/16/20 23:17 Medical decision making: This patient has chest pain of 4-day duration. His troponin is normal. But he does have an elevated d-dimer. Patient has a true allergy to IVP dye. Patient's vital signs are stable and is oxygenating well on room air. I spoke with Dr. Oconnor, who is his primary care physician, and we will place him in observation, provide him Lovenox tonight and then a dose in the morning and then perform a VQ scan to determine whether or not the patient has pulmonary emboli. I will provide the patient with some pain medication tonight and on the floor as well. We will keep him on a monitored bed. Dr. Oconnor agrees with this plan. 04/16/20 23:19 Chest x-ray shows no acute cardiopulmonary process Blood Culture(s) Obtained: No Antibiotics given: No Discussed with : Caitlyn Counseled pt/family regarding: lab results, diagnosis, rad results - Departure Departure Disposition: Observation Clinical Impression: Pain in the chest, Elevated d-dimer Condition: Stable Critical Care Time: No
[2020-04-16 22:35] LABS: Absolute Neutrophil Ct (ANC) 6.62 (1.4-6.9); BASOPHIL % 0.3 % (0.0-0.4); Basophil (Absolute #) 0.03 (0-0.4); Eosinophil % 2.1 % (0.00-5.0); Eosinophil (Absolute #) 0.21 (0-0.5); Hematocrit 39.7 % (42-50); Hemoglobin 13.3 gm/dl (12.5-18.0); Lymphocyte (Absolute #) 2.12 (1.0-4.6); Lymphocytes % 21.6 % (24.0-44.0); Mean Cell Volume 92.1 fl (78-100); Mean Corpuscular Hemoglobin 30.9 pg (26-32); Mean Corpuscular Hgb Concent. 33.5 g/dl (32-36); Mean Platelet Volume 9.9 fl (7.5-11.0); Monocyte (Absolute #) 0.83 (0.0-1.3); Monocytes % 8.5 % (0.0-12.0); Neutrophil % 67.5 % (36.0-66.0); Platelet Count 284 K/mm3 (150-450); Red Blood Count 4.31 M/mm3 (4.1-5.6); Red Cell Distribution Width 13.5 % (11.5-14.0); White Blood Count 9.8 K/mm3 (4.0-10.5)
[2020-04-16 22:48] LABS: INR 1.16 (0.8-3.0); PROTIME 13.1 SECONDS (8.83-12.87)
[2020-04-16 23:05] LABS: ALBUMIN 3.8 g/dL (3.5-5.0); ALKALINE PHOSPHATASE 113 U/L (38-126); ANION GAP 8.7 MEQ/L (5-15); BLOOD UREA NITROGEN 10 mg/dL (9-20); CHLORIDE 106 mmol/L (98-107); Calcium 9.1 mg/dL (8.4-10.2); Carbon Dioxide 24 mmol/L (22-30); Creatinine 1 0.95 mg/dL (0.66-1.25); EST GLOMERULAR FILTRATION RATE > 60.0 ML/MIN; Glucose 96 mg/dL (74-106); MAGNESIUM 1.9 mg/dL (1.6-2.3); NT PRO BNP 114 pg/mL (0-900); SGOT/AST 29 U/L (17-59); SGPT/ALT 22 U/L (0-50); SODIUM 135 mmol/L (137-145); Total Protein 6.6 g/dL (6.3-8.2)
[2020-04-16] MEDS ORDERED: ENOXAPARIN SODIUM SQ ONE (23:24)
[2020-04-16] MEDS ORDERED: MORPHINE SULFATE 4 MG INJ IV ONE (23:24)
[2020-04-16] MEDS ORDERED: Zofran 4 MG/2 ML VIAL IV ONE (23:25)
[2020-04-16] MEDS ORDERED: Zofran 4 MG/2 ML VIAL ONE (23:45)
[2020-04-16] MEDS ORDERED: MORPHINE SULFATE 4 MG INJ ONE (23:45)
[2020-04-17] MEDS ORDERED: MORPHINE SULFATE 4 MG INJ IV PRN (00:14)
[2020-04-17] MEDS ORDERED: TYLENOL 325 MG PO PRN (00:14)
[2020-04-17] MEDS ORDERED: Zofran 4 MG/2 ML VIAL IV PRN (00:14)
--- NOTE | 2020-04-17 08:52 | XRAY ---
Indication: Chest pain. Comparison: February 25, 2019. PA/lateral chest remains hyperinflated and clear. Heart is not enlarged. Bony thorax intact. No new/acute findings.
--- NOTE | 2020-04-17 09:04 | XRAY ---
Indication: Chest pain. Elevated d-dimer. Known IV contrast allergy. Comparison: None Patient received 5.6 mCi technetium 99 MAA for the perfusion portion exam. Patient inhaled 36 mCi of aerosolized technetium 99 DTPA for the ventilation portion. Multiple planar images obtained. Perfusion images demonstrates normal radiopharmaceutical activity. No focal segmental/subsegmental perfusion defect. Ventilation images demonstrates homogeneous radiopharmaceutical activity bilaterally. Small amount of GI radiopharmaceutical activity presumed from ingestion. Impression: Nuclear medicine ventilation/perfusion scan is normal.
[2020-04-17] MEDS ORDERED: ENOXAPARIN SODIUM SQ SCH (10:00)
[2020-04-17 11:21] VITALS: BP 130/75; PULSE 70
--- NOTE | 2020-04-17 12:50 | XRAY ---
Indication: Chest pain radiating right shoulder 4 days. Possible aneurysm. Known IV contrast allergy. Multiple contiguous axial images obtained through the chest without contrast as ordered. Comparison: None Lungs are hyperinflated with mild left lower lobe fibrosis/scarring and minimal bilateral upper lobe subpleural cystic changes. Tiny right middle lobe calcified granuloma. No suspicious pulmonary mass/nodule, infiltrate, or effusion. Heart is not enlarged. Aorta is normal in course and caliber. A few small left hilar calcified nodes. No pathologic mediastinal lymphadenopathy. Small hiatal hernia. Bony thorax intact with minimal degenerative changes throughout the spine and small multilevel Schmorl nodes. Limited upper abdomen demonstrates fatty liver. Impression: 1. Negative for arteriosclerotic disease and thoracic aneurysm. 2. Incidental left lower lobe fibrosis/scarring, bilateral upper lobe subpleural cystic changes, old granulomatous disease, small hiatal hernia, fatty liver, and chronic bony findings.
[2020-05-06 09:36] VITALS: O2SAT 99
--- NOTE | 2020-05-11 07:44 | PCM.SSS ---
History of Present Illness - Chief Complaint Chief Complaint: chest pain History of Present Illness: is a 54 year old male. presented to ER with intermittent chest pain for the past 4 days, with radiation to the shoulder region - Review of Systems Constitutional: No Fever, No Chills Eyes: No Symptoms Ears, Nose, & Throat: No Symptoms Respiratory: No Cough, No Short Of Breath Cardiac: Chest Pain Abdominal/Gastrointestinal: No Abdominal Pain, No Nausea, No Vomiting, No Diarrhea Genitourinary Symptoms: No Dysuria Musculoskeletal: No Back Pain, No Neck Pain Skin: No Rash Neurological: No Dizziness, No Focal Weakness, No Sensory Changes Psychological: No Symptoms Endocrine: No Symptoms Hematologic/Lymphatic: No Symptoms Immunological/Allergic: No Symptoms Medications & Allergies Home Medications: Home Medication List Potassium Chloride [K-Dur] 20 meq PO BID 06/26/19 [History Confirmed 04/17/20] Magnesium Oxide 400 mg [Mag-Ox 400] 400 mg PO BID #6 tablet 01/30/20 [Rx Confirmed 04/16/20] Cyanocobalamin 1000 Mcg/ml [Cyanocobalamin B-12 1000 MCG/ML] 1,000 mcg IM UD 04/16/20 [History Confirmed 04/16/20] OLANZapine [Zyprexa] 2.5 mg PO DAILY 04/16/20 [History Confirmed 04/16/20] Allergies/Adverse Reactions: Allergies Allergy/AdvReac Type Severity Reaction Status Date / Time buspirone [From BuSpar] Allergy Severe Swelling Verified 04/16/20 22:03 Penicillins Allergy Intermediate Hives Verified 04/16/20 22:03 IV DYE Allergy Intermediate Swelling Uncoded 04/16/20 22:03 - Past Medical History Past Medical History: Yes Neurological History: No Pertinent History ENT History: No Pertinent History Cardiac History: No Pertinent History Respiratory History: No Pertinent History Endocrine Medical History: No Pertinent History Musculoskelatal History: No Pertinent History GI Medical History: Crohns Disease History: No Pertinent History Pyscho-Social History: Anxiety, Depression Male Reproductive Disorders: No Pertinent History Comment: chronic abd pain - Past Surgical History Past Surgical History: Yes Neuro Surgical History: No Pertinent History Cardiac History: No Pertinent History Respiratory Surgery: No Pertinent History GI Surgical History: Appendectomy, Colon Resection Genitourinary Surgical Hx: No Pertinent History Musculskeletal Surgical Hx: No Pertinent History Male Surgical History: No Pertinent History Other Surgical History: small bowel resection - Social History Smoking Status: Current every day smoker How long have you smoked: 35 yrs Exposure to second hand smoke: Yes Alcohol: None Drug Use: none - Physical Exam General Appearance: no apparent distress, alert Neurologic Exam: alert, oriented x 3, cooperative Eye Exam: PERRL/EOMI Ears, Nose, Throat Exam: normal ENT inspection Neck Exam: normal inspection, non-tender, supple Respiratory Exam: normal breath sounds, lungs clear, No chest tenderness Cardiovascular Exam: regular rate/rhythm, normal heart sounds Gastrointestinal/Abdomen Exam: soft, normal bowel sounds, No tenderness, No distention Rectal Exam: deferred Back Exam: normal inspection Extremity Exam: normal inspection Skin Exam: normal color, warm, dry, No rash, No petechiae Assessment/Plan (1) Chest pain in adult Status: Resolved Code(s): R07.9 - CHEST PAIN, UNSPECIFIED Hospital Summary - Hospital Course Hospital Course: Pt. admitted and no further chest pain noted during stay, pt. was felt to be stable after other testing returned normal, including negative V/Q scan - Vitals & Intake/Output Vital Signs: Vital Signs Temperature 97.8 F 04/17/20 11:21 Pulse Rate 70 04/17/20 11:21 Respiratory Rate 24 04/17/20 11:21 Blood Pressure 130/75 04/17/20 11:21 O2 Sat by Pulse Oximetry 99 05/06/20 09:36 - Lab Result Diagrams: 04/16/20 22:20 04/16/20 22:20 - Procedures and Test Procedures and Tests throughout Hospitalization: Therapy Orders & Screens 04/17/20 11:29 STRESS TEST [Schedule Outpt Stress Test] ROUTINE Comment: OP CARDIALYTE STRESS TEST Diagnosis: chest pain - Discharge Discharge Date: 04/17/20 Disposition: Home, Self-Care Condition: Stable Prescriptions: Continue Potassium Chloride [K-Dur] 20 meq PO BID Magnesium Oxide 400 mg [Mag-Ox 400] 400 mg PO BID #6 tablet Cyanocobalamin 1000 Mcg/ml [Cyanocobalamin B-12 1000 MCG/ML] 1,000 mcg IM UD OLANZapine [Zyprexa] 2.5 mg PO DAILY Instructions: Cardiac Stress Test, Chest Pain That Is Not Caused by the Heart (DC) Additional Instructions: STRESS TEST SCHEDULED 04/24/20 @ 0630 Follow up with: ENEDELIA DOSS [Primary Care Provider] - 04/24/20 9:45 am
== END 2020-04-17 14:30 | disposition home or self-care (01) ==
LOC: ED 21:42 → MED SURG 04-17 00:10
PROVIDERS: ADMIT Family Medicine; ATTEND Family Medicine
DX: R07.9 Chest pain, unspecified (principal); R79.1 Abnormal coagulation profile; Z79.899 Other long term (current) drug therapy
CPT/HCPCS: 36000; 36415; 71045; 71250; 78582; 80053; 83735; 83880; 84484; 85025; 85379; 85610; 93005; 93268; 94760; 96372; 99284; A9540; A9567; G0378; 96374; 96375; J1650; J2270; J2405; A9270-GY

== ENCOUNTER 2020-11-28 12:40 | Emergency (ER) | payer OTHER ==
[2020-11-28 12:52] VITALS: O2SAT 98
--- NOTE | 2020-11-28 13:16 | ERPHSYRPT ---
- History of Present Illness Time Seen by Provider: 11/28/20 13:13 Source: patient Exam Limitations: no limitations Patient Subjective Stated Complaint: Pt states "I woke up a couple of days ago and my right ankle looked odd. It has just been getting worse and worse over the past few days and now it really hurts" Triage Nursing Assessment: Pt presented alert and oriented X 3, skin pwd. pt right medial ankle swollen and extremely tender to the touch.CSM x 4 Physician History: Pt states "I woke up a couple of days ago and my right ankle looked odd. It has just been getting worse and worse over the past few days and now it really hurts" and has a history of Crohn's disease and for which patient has 2 abdominal surgery one was in 1899 and another one was in 2012. Patient is not on any Crohn's medication as he does not have any exacerbation since 2012. Method of Injury: unknown Occurred: yesterday Quality: constant, burning Severity of Pain-Max: moderate Severity of Pain-Current: moderate Lower Extremities Pain: ankle: right Associated Symptoms: none Allergies/Adverse Reactions: buspirone [From BuSpar] Allergy (Severe, Verified 04/16/20 22:03) Swelling Penicillins Allergy (Intermediate, Verified 04/16/20 22:03) Hives IV DYE Allergy (Intermediate, Uncoded 04/16/20 22:03) Swelling Home Medications: Cyanocobalamin 1000 Mcg/ml [Cyanocobalamin B-12 1000 MCG/ML] 1,000 mcg IM UD 04/16/20 [History] OLANZapine [Zyprexa] 2.5 mg PO DAILY 04/16/20 [History] Hx Tetanus, Diphtheria Vaccination/Date Given: Yes Hx Influenza Vaccination/Date Given: Yes Hx Pneumococcal Vaccination/Date Given: No Immunizations Up to Date: Yes Travel Risk - International Travel Have you traveled outside of the country in past 3 weeks: No - Coronavirus Screening Are you exhibiting any of the following symptoms?: No Close contact with a COVID-19 positive Pt in past 14-21 Days: No - Vaccine Status Have you recieved a Covid-19 vaccination: No - Review of Systems Constitutional: No Symptoms Eyes: No Symptoms Ears, Nose, & Throat: No Symptoms Respiratory: No Symptoms Cardiac: No Symptoms Abdominal/Gastrointestinal: No Symptoms Genitourinary Symptoms: No Symptoms Musculoskeletal: Joint Redness (right ankle) Skin: Cellulitis (right ankle) Neurological: No Symptoms Psychological: No Symptoms Endocrine: No Symptoms - Past Medical History Pertinent Past Medical History: Yes Neurological History: No Pertinent History ENT History: No Pertinent History Cardiac History: No Pertinent History Respiratory History: No Pertinent History Endocrine Medical History: No Pertinent History Musculoskeletal History: No Pertinent History GI Medical History: Crohns Disease History: No Pertinent History Psycho-Social History: Anxiety, Depression Male Reproductive Disorders: No Pertinent History Other Medical History: chronic abd pain - Past Surgical History Past Surgical History: Yes Neuro Surgical History: No Pertinent History Cardiac: No Pertinent History Respiratory: No Pertinent History Gastrointestinal: Appendectomy, Colon Resection Genitourinary: No Pertinent History Musculoskeletal: No Pertinent History Male Surgical History: No Pertinent History Other Surgical History: small bowel resection - Social History Smoking Status: Current every day smoker How long have you smoked: years Exposure to second hand smoke: Yes Drug Use: none Patient Lives Alone: Yes - Nursing Vital Signs Nursing Vital Signs: Initial Vital Signs Temperature 98.2 F 11/28/20 12:45 Pulse Rate 82 11/28/20 12:45 Respiratory Rate 20 11/28/20 12:45 Blood Pressure 138/86 11/28/20 12:45 O2 Sat by Pulse Oximetry 98 11/28/20 12:45 Pain Scale Pain Intensity 4 - Physical Exam General Appearance: no apparent distress Eyes, Ears, Nose, Throat Exam: normal ENT inspection Neck Exam: normal inspection Cardiovascular/Respiratory Exam: chest non-tender Gastrointestinal/Abdominal Exam: non-tender Back Exam: normal inspection Hips Exam: bilateral: non-tender Legs Exam: bilateral leg: non-tender Knees Exam: bilateral knee: non-tender Ankle Exam: right ankle: soft tissue tenderness Foot Exam: bilateral foot: non-tender Neuro/Tendon Exam: normal sensation Mental Status Exam: alert, oriented x 3 Skin Exam: normal color SpO2 Interpretation: normal SpO2: 98 O2 Delivery: Room Air - Course Nursing assessment & vital signs reviewed: Yes - Radiology Exams Ankle X-ray Interpretation: Reviewed by me, Negative Ordered Tests: Active Orders 24 hr Category Date Time Status ANKLE (3 VIEWS) Stat Exams 11/28/20 13:05 Taken CBC W DIFF Stat Lab 11/28/20 13:15 Completed CMP Stat Lab 11/28/20 13:15 Completed Uric Acid Stat Lab 11/28/20 13:15 Completed Medication Summary Discontinued Medications Generic Name Dose Route Start Last Admin Trade Name Karma PRN Reason Stop Dose Admin Potassium Chloride 20 meq 11/28/20 13:43 11/28/20 14:09 Klor Con 10 Meq PO 11/28/20 13:44 20 meq STAT ONE Administration Potassium Chloride Confirm 11/28/20 14:08 Klor Con 10 Meq Administered 11/28/20 14:09 Dose 20 meq PO .STK-MED ONE Lab/Rad Data: Laboratory Result Diagrams 11/28/20 13:15 11/28/20 13:15 Laboratory Results 11/28/20 11/28/20 Range/Units 13:15 13:15 WBC 8.7 (4.0-10.5) K/mm3 RBC 4.30 (4.1-5.6) M/mm3 Hgb 12.9 (12.5-18.0) gm/dl Hct 39.1 L (42-50) % MCV 90.9 (78-100) fl MCH 30.0 (26-32) pg MCHC 33.0 (32-36) g/dl RDW 15.6 H (11.5-14.0) % Plt Count 346 (150-450) K/mm3 MPV 9.3 (7.5-11.0) fl Gran % 65.3 (36.0-66.0) % Eos # (Auto) 0.32 (0-0.5) Absolute Lymphs (auto) 1.71 (1.0-4.6) Absolute Monos (auto) 0.98 (0.0-1.3) Lymphocytes % 19.6 L (24.0-44.0) % Monocytes % 11.2 (0.0-12.0) % Eosinophils % 3.7 (0.00-5.0) % Basophils % 0.2 (0.0-0.4) % Absolute Granulocytes 5.71 (1.4-6.9) Basophils # 0.02 (0-0.4) Sodium 138 (137-145) mmol/L Potassium 3.1 L (3.5-5.1) mmol/L Chloride 103 (98-107) mmol/L Carbon Dioxide 29 (22-30) mmol/L Anion Gap 8.7 (5-15) MEQ/L BUN 5 L (9-20) mg/dL Creatinine 1.11 (0.66-1.25) mg/dL Estimated GFR > 60.0 ML/MIN Glucose 94 (74-106) mg/dL Uric Acid 4.9 (3.5-7.2) mg/dL Calcium 8.6 (8.4-10.2) mg/dL Total Bilirubin 0.50 (0.2-1.3) mg/dL AST 23 (17-59) U/L ALT 22 (0-50) U/L Alkaline Phosphatase 80 (38-126) U/L Serum Total Protein 6.0 L (6.3-8.2) g/dL Albumin 3.4 L (3.5-5.0) g/dL - Progress Progress: unchanged, pain not gone completely Counseled pt/family regarding: lab results, diagnosis, need for follow-up, rad results - Departure Departure Disposition: Home Clinical Impression: Right ankle effusion, Acute right ankle pain, Hx of Crohn's disease Condition: Stable Critical Care Time: No Referrals: ENEDELIA DOSS [Primary Care Provider] - Instructions: Swollen Joints (DC) Additional Instructions: Discharge/Care Plan AMA CARR was seen on 11/28/20 in the Emergency Room. The patient was counseled regarding Diagnosis,Lab results, Imaging studies, need for follow up and when to return to the Emergency Room. Prescriptions given: Discharge Note I have spoken with the patient and/or caregivers. I have explained the patient's condition, diagnosis and treatment plan based on the information available to me at this time. I have answered the patient's and/or caregiver's questions and addressed any concerns. The patient and/or caregivers have as good understanding of the patient's diagnosis, condition and treatment plan as can be expected at this point. The vital signs have been stable. The patient's condition is stable and appropriate for discharge from the emergency department. The patient will pursue further outpatient evaluation with the primary care physician or other designated or consulting physician as outlined in the discharge instructions. The patient and/or caregivers are agreeable to this plan of care and follow-up instructions have been explained in detail. The patient and/or caregivers have received these instruction. The patient/and or caregivers are aware that any significant change in condition or worsening of symptoms should prompt an immediate return to this or the closest emergency department or call 911. AMA CARR was seen on 11/28/20 n the Emergency Room. At that time you were treated for an emergent condition, during your visit Laboratory, Radiology and/or other procedures may have been ordered. It is very important that you follow-up with your Primary Care Physician ENEDELIA DOSS within the next 24-48 hours to review your Emergency Room visit and the final results of testing that was ordered. Some test results such as Urine Cultures, Blood Cultures, and other cultures if ordered will not be finalized for 24-48 hours. If you do not have a Primary Care Provider please call the medical records department at [phone] to obtain a copy of your results or you may sign into our patient portal to obtain these results by visiting us @ [email or web address] and completing the following steps: 1. Click on the Patient Portal link 2. Click the Patient Self Enrollment Link to complete the enrollment form and entering your 3. Once the enrollment form is completed you will receive an email with a temporary ID and password at the email address you provided. 4. Next choose a user name and password. Your user name must be at least 4 characters long and your password must be at least 4 characters long. 5. Choose a security question from the list and provide your answer to the question. If you already have signed into the Health Portal you may access your Health Care Information 06/02 by the following steps: 1. Login to our website @ [email or web address] 2. Enter your original user name and password. FAQS The [facility] Health Portal is an online tool that contains your Lab Results, Radiology Reports, Visit History, Discharge Instructions and Health Summary Lab and Radiology Results will not be available for 72 hours on the portal. The Portal is a secure site, passwords are encryted and URLs are re-written so they cannot be copied and pasted. You and authorized family members are the only ones who can access your Portal. Also there is a timeout feature that protects your information if you leave the Portal page open. If you have technical difficulty please use the Contact Us link on the page this will allow you to submit any questions you have regarding the Portal or you may contact the Medical Record Department at [phone] ext [phone]. Prescriptions: Potassium Chloride [K-Dur] 20 meq PO BID #60 tablet Methylprednisolone Packet [Medrol Dosepack] 4 mg PO UD #21 packet
[2020-11-28 13:25] LABS: Absolute Neutrophil Ct (ANC) 5.71 (1.4-6.9); BASOPHIL % 0.2 % (0.0-0.4); Basophil (Absolute #) 0.02 (0-0.4); Eosinophil % 3.7 % (0.00-5.0); Eosinophil (Absolute #) 0.32 (0-0.5); Hematocrit 39.1 % (42-50); Hemoglobin 12.9 gm/dl (12.5-18.0); Lymphocyte (Absolute #) 1.71 (1.0-4.6); Lymphocytes % 19.6 % (24.0-44.0); Mean Cell Volume 90.9 fl (78-100); Mean Platelet Volume 9.3 fl (7.5-11.0); Monocyte (Absolute #) 0.98 (0.0-1.3); Monocytes % 11.2 % (0.0-12.0); Neutrophil % 65.3 % (36.0-66.0); Platelet Count 346 K/mm3 (150-450); Red Cell Distribution Width 15.6 % (11.5-14.0); White Blood Count 8.7 K/mm3 (4.0-10.5)
[2020-11-28 13:32] LABS: ALBUMIN 3.4 g/dL (3.5-5.0); ALKALINE PHOSPHATASE 80 U/L (38-126); ANION GAP 8.7 MEQ/L (5-15); BLOOD UREA NITROGEN 5 mg/dL (9-20); CHLORIDE 103 mmol/L (98-107); Calcium 8.6 mg/dL (8.4-10.2); Carbon Dioxide 29 mmol/L (22-30); Creatinine 1 1.11 mg/dL (0.66-1.25); EST GLOMERULAR FILTRATION RATE > 60.0 ML/MIN; Glucose 94 mg/dL (74-106); Potassium 3.1 mmol/L (3.5-5.1); SGOT/AST 23 U/L (17-59); SGPT/ALT 22 U/L (0-50); SODIUM 138 mmol/L (137-145); Uric Acid 4.9 mg/dL (3.5-7.2)
[2020-11-28] MEDS ORDERED: Klor Con 10 MEQ PO ONE ×2 (13:43→14:08)
[2020-11-28 14:16] VITALS: BP 132/80; PULSE 78
--- NOTE | 2020-11-28 19:40 | XRAY ---
Indication: Pain and swelling. No known injury. Comparison: None 3 view right ankle demonstrates mild soft tissue swelling. No other bony, articular, or soft tissue abnormalities.
== END 2020-11-28 15:02 | disposition home or self-care (01) ==
LOC: ED 12:40
DX: M25.471 Effusion, right ankle (principal); M25.571 Pain in right ankle and joints of right foot; K50.90 Crohn's disease, unspecified, without complications
CPT/HCPCS: 36415; 73610; 80053; 84550; 85025; 99284; A9270-GY

== ENCOUNTER 2021-02-20 21:21 | Emergency (ER) | payer OTHER ==
[2021-02-20] MEDS ORDERED: Zofran 4 MG/2 ML VIAL IV ONE (22:09)
[2021-02-20] MEDS ORDERED: TORAdol 30 mg Injection IV ONE (22:09)
[2021-02-20] MEDS ORDERED: Sodium Chloride 0.9% 1000 ML 1,000 ML IV STA (22:09)
[2021-02-20] MEDS ORDERED: Zofran 4 MG/2 ML VIAL ONE (22:18)
[2021-02-20] MEDS ORDERED: TORAdol 30 mg Injection ONE (22:18)
[2021-02-20] MEDS ORDERED: Sodium Chloride 0.9% 1000 ML 1,000 ML ONE (22:18)
[2021-02-20 22:28] LABS: Absolute Neutrophil Ct (ANC) 6.46 (1.4-6.9); BASOPHIL % 0.1 % (0.0-0.4); Basophil (Absolute #) 0.01 (0-0.4); Eosinophil % 3.6 % (0.00-5.0); Eosinophil (Absolute #) 0.37 (0-0.5); Hematocrit 37.9 % (42-50); Hemoglobin 12.9 gm/dl (12.5-18.0); Lymphocyte (Absolute #) 2.32 (1.0-4.6); Lymphocytes % 22.9 % (24.0-44.0); Mean Corpuscular Hemoglobin 30.6 pg (26-32); Mean Platelet Volume 9.5 fl (7.5-11.0); Monocyte (Absolute #) 0.99 (0.0-1.3); Monocytes % 9.8 % (0.0-12.0); Neutrophil % 63.6 % (36.0-66.0); Platelet Count 362 K/mm3 (150-450); Red Blood Count 4.21 M/mm3 (4.1-5.6); Red Cell Distribution Width 14.1 % (11.5-14.0); White Blood Count 10.2 K/mm3 (4.0-10.5)
[2021-02-20 22:32] LABS: Appearance CLEAR (CLEAR); Bilirubin NEGATIVE (NEGATIVE); Blood NEGATIVE Ery/ul (0-5); Glucose NEGATIVE (NEGATIVE); Ketones NEGATIVE (NEGATIVE); Leukocyte Esterase NEGATIVE (NEGATIVE); Nitrite NEGATIVE (NEGATIVE); Protein,Urine Dip NEGATIVE (Negative); Specific Gravity 1.005 (1.005-1.025); Urobilinogen NEGATIVE mg/dL (0-1)
[2021-02-20 22:37] LABS: ALBUMIN 3.5 g/dL (3.5-5.0); ALKALINE PHOSPHATASE 100 U/L (38-126); AMYLASE 65 U/L (30-110); BLOOD UREA NITROGEN 8 mg/dL (9-20); CHLORIDE 103 mmol/L (98-107); Carbon Dioxide 22 mmol/L (22-30); EST GLOMERULAR FILTRATION RATE > 60.0 ML/MIN; Glucose 106 mg/dL (74-106); LIPASE 222 U/L (23-300); Potassium 3.1 mmol/L (3.5-5.1); SGOT/AST 20 U/L (17-59); SGPT/ALT 11 U/L (0-50); SODIUM 135 mmol/L (137-145); Total Protein 6.2 g/dL (6.3-8.2)
[2021-02-20 22:49] LABS: Bacteria NONE SEEN /HPF (NEGATIVE); RBC NONE SEEN /HPF (0-2); WBC NONE SEEN /HPF (0-5)
--- NOTE | 2021-02-20 23:44 | ERPHSYRPT ---
- History of Present Illness Time Seen by Provider: 02/20/21 21:50 Historian: patient Exam Limitations: no limitations Patient Subjective Stated Complaint: pt states he has been having pain below his lt ribs for last week and a half. states pain has been increasing since and he hasnt been able to eat Triage Nursing Assessment: pt alert and oriented, answers questions approp. pt ambulatory with steady gait noted. respirations nonlabored. occasional cough noted- pt states from smoking, his normal. abd soft, pt reports tenderness to lt abd with palpation. bowel sounds hyper x4 quads. Physician History: Is a 55-year-old male who has a history of Crohn's disease who presents with nausea no vomiting no diarrhea constipation left upper quadrant pain which seems different than his normal Crohn's disease he denies any fever chills or sweats his only medications presently include potassium magnesium Pepcid and a monthly B12 shot. Timing/Duration: day(s) (10) Activities at Onset: none Quality: cramping Abdominal Pain Onset Location: [facility] Pain Radiation: no radiation Severity of Pain-Max: moderate Severity of Pain-Current: moderate Modifying Factors: Improves With: nothing Associated Symptoms: denies symptoms Previous symptoms: same symptoms as today Allergies/Adverse Reactions: buspirone [From BuSpar] Allergy (Severe, Verified 02/20/21 22:50) Swelling Penicillins Allergy (Intermediate, Verified 02/20/21 22:50) Hives IV DYE Allergy (Intermediate, Uncoded 02/20/21 22:50) Swelling Home Medications: Cyanocobalamin 1000 Mcg/ml [Cyanocobalamin B-12 1000 MCG/ML] 1,000 mcg IM UD 04/16/20 [History] OLANZapine [Zyprexa] 2.5 mg PO DAILY 04/16/20 [History] Potassium Chloride [K-Dur] 20 meq PO TID 02/20/21 [History] Hx Tetanus, Diphtheria Vaccination/Date Given: Yes Hx Influenza Vaccination/Date Given: Yes Hx Pneumococcal Vaccination/Date Given: No Immunizations Up to Date: Yes Travel Risk - International Travel Have you traveled outside of the country in past 3 weeks: No - Coronavirus Screening Are you exhibiting any of the following symptoms?: No Close contact with a COVID-19 positive Pt in past 14-21 Days: No - Vaccine Status Have you recieved a Covid-19 vaccination: Yes 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[employer] - Review of Systems Constitutional: No Fever, No Chills Eyes: No Symptoms Ears, Nose, & Throat: No Symptoms Respiratory: No Cough, No Dyspnea Cardiac: No Chest Pain, No Edema, No Syncope Abdominal/Gastrointestinal: Abdominal Pain, Nausea, Constipation, No Vomiting, No Diarrhea Genitourinary Symptoms: No Dysuria Musculoskeletal: No Back Pain, No Neck Pain Skin: No Rash Neurological: No Dizziness, No Focal Weakness, No Sensory Changes Psychological: No Symptoms Endocrine: No Symptoms All Other Systems: Reviewed and Negative - Past Medical History Pertinent Past Medical History: Yes Neurological History: No Pertinent History ENT History: No Pertinent History Cardiac History: No Pertinent History Respiratory History: No Pertinent History Endocrine Medical History: No Pertinent History Musculoskeletal History: No Pertinent History GI Medical History: Crohns Disease History: No Pertinent History Psycho-Social History: Anxiety, Depression Male Reproductive Disorders: No Pertinent History Other Medical History: chronic abd pain - Past Surgical History Past Surgical History: Yes Neuro Surgical History: No Pertinent History Cardiac: No Pertinent History Respiratory: No Pertinent History Gastrointestinal: Appendectomy, Bowel Surgery Genitourinary: No Pertinent History Musculoskeletal: No Pertinent History Male Surgical History: No Pertinent History Other Surgical History: small bowel resection - Social History Smoking Status: Current every day smoker How long have you smoked: 40 years Exposure to second hand smoke: Yes Drug Use: none Patient Lives Alone: Yes - Nursing Vital Signs Nursing Vital Signs: Initial Vital Signs Pulse Rate 76 02/20/21 21:33 Respiratory Rate 16 02/20/21 21:33 Blood Pressure 147/92 02/20/21 21:33 O2 Sat by Pulse Oximetry 100 02/20/21 21:33 Pain Scale Pain Intensity 5 - Physical Exam General Appearance: mild distress Eye Exam: PERRL/EOMI, eyes nml inspection Ears, Nose, Throat Exam: normal ENT inspection, pharynx normal, moist mucous membranes Neck Exam: normal inspection, non-tender, supple, full range of motion Respiratory Exam: normal breath sounds, lungs clear, No respiratory distress Cardiovascular Exam: regular rate/rhythm Gastrointestinal/Abdomen Exam: normal bowel sounds, tenderness, No guarding, No rebound Back Exam: normal inspection, normal range of motion, No CVA tenderness, No vertebral tenderness Extremity Exam: normal inspection, normal range of motion, pelvis stable Neurologic Exam: alert, oriented x 3, cooperative, normal mood/affect, nml cerebellar function, sensation nml, No motor deficits Skin Exam: normal color, warm, dry SpO2 Interpretation: normal SpO2: 100 O2 Delivery: Room Air - Course Nursing assessment & vital signs reviewed: Yes EKG Interpreted by Me: RATE (67), Sinus Rhythm, NORMAL AXIS, Other (GA interval and ST segment elevation probably representing normal early repole pattern) - CT Exams Abdomen/Pelvis CT Interpretation: Tele-radiologist Report (Findings on CT suggest small bowel enteritis) Ordered Tests: Active Orders 24 hr Category Date Time Status IV Insertion STAT Care 02/20/21 22:09 Active ABDOMEN AND PELVIS W/0 CONTRAS [CT] Stat Exams 02/20/21 22:09 Taken AMYLASE Stat Lab 02/20/21 22:22 Completed CBC W DIFF Stat Lab 02/20/21 22:22 Completed CMP Stat Lab 02/20/21 22:22 Completed LIPASE Stat Lab 02/20/21 22:22 Completed Lactic Acid Stat Lab 02/20/21 22:19 Completed UA W/RFX UR CULTURE Stat Lab 02/20/21 22:18 Completed Medication Summary Discontinued Medications Generic Name Dose Route Start Last Admin Trade Name Freq PRN Reason Stop Dose Admin Sodium Chloride 1,000 mls @ 999 mls/hr 02/20/21 22:09 02/20/21 23:33 Sodium Chloride 0.9% 1000 Ml IV 02/20/21 23:09 Infused .Q1H1M STA Infusion Sodium Chloride Confirm 02/20/21 22:18 Sodium Chloride 0.9% 1000 Ml Administered 02/20/21 22:19 Dose 1,000 mls @ ud .ROUTE .STK-MED ONE Ketorolac Tromethamine 30 mg 02/20/21 22:09 02/20/21 22:20 Toradol 30 Mg Injection IV 02/20/21 22:10 30 mg STAT ONE Administration Ketorolac Tromethamine Confirm 02/20/21 22:18 Toradol 30 Mg Injection Administered 02/20/21 22:19 Dose 30 mg .ROUTE .STK-MED ONE Ondansetron HCl 4 mg 02/20/21 22:09 02/20/21 22:21 Zofran 4 Mg/2 Ml Vial IV 02/20/21 22:10 4 mg STAT ONE Administration Ondansetron HCl Confirm 02/20/21 22:18 Zofran 4 Mg/2 Ml Vial Administered 02/20/21 22:19 Dose 4 mg .ROUTE .STK-MED ONE Lab/Rad Data: Laboratory Result Diagrams 02/20/21 22:22 02/20/21 22:22 Laboratory Results 02/20/21 02/20/21 02/20/21 Range/Units 22:22 22:22 22:19 WBC 10.2 (4.0-10.5) K/mm3 RBC 4.21 (4.1-5.6) M/mm3 Hgb 12.9 (12.5-18.0) gm/dl Hct 37.9 L (42-50) % MCV 90.0 (78-100) fl MCH 30.6 (26-32) pg MCHC 34.0 (32-36) g/dl RDW 14.1 H (11.5-14.0) % Plt Count 362 (150-450) K/mm3 MPV 9.5 (7.5-11.0) fl Gran % 63.6 (36.0-66.0) % Eos # (Auto) 0.37 (0-0.5) Absolute Lymphs (auto) 2.32 (1.0-4.6) Absolute Monos (auto) 0.99 (0.0-1.3) Lymphocytes % 22.9 L (24.0-44.0) % Monocytes % 9.8 (0.0-12.0) % Eosinophils % 3.6 (0.00-5.0) % Basophils % 0.1 (0.0-0.4) % Absolute Granulocytes 6.46 (1.4-6.9) Basophils # 0.01 (0-0.4) Sodium 135 L (137-145) mmol/L Potassium 3.1 L (3.5-5.1) mmol/L Chloride 103 (98-107) mmol/L Carbon Dioxide 22 (22-30) mmol/L Anion Gap 14.0 (5-15) MEQ/L BUN 8 L (9-20) mg/dL Creatinine 1.20 (0.66-1.25) mg/dL Estimated GFR > 60.0 ML/MIN Glucose 106 (74-106) mg/dL Lactic Acid 1.6 (0.4-2.0) Calcium 9.0 (8.4-10.2) mg/dL Total Bilirubin 0.30 (0.2-1.3) mg/dL AST 20 (17-59) U/L ALT 11 (0-50) U/L Alkaline Phosphatase 100 (38-126) U/L Serum Total Protein 6.2 L (6.3-8.2) g/dL Albumin 3.5 (3.5-5.0) g/dL Amylase 65 (30-110) U/L Lipase 222 (23-300) U/L Urine Color (YELLOW) Urine Appearance (CLEAR) Urine pH (5-6) Ur Specific Stebbins (1.005-1.025) Urine Protein (Negative) Urine Ketones (NEGATIVE) Urine Blood (0-5) Reji/ul Urine Nitrite (NEGATIVE) Urine Bilirubin (NEGATIVE) Urine Urobilinogen (0-1) mg/dL Ur Leukocyte Esterase (NEGATIVE) Urine WBC (Auto) (0-5) /HPF Urine RBC (Auto) (0-2) /HPF U Epithel Cells (Auto) (FEW) /HPF Urine Bacteria (Auto) (NEGATIVE) /HPF Urine Culture Reflexed (NO) Urine Glucose (NEGATIVE) mg/dL 02/20/21 Range/Units 22:18 WBC (4.0-10.5) K/mm3 RBC (4.1-5.6) M/mm3 Hgb (12.5-18.0) gm/dl Hct (42-50) % MCV (78-100) fl MCH (26-32) pg MCHC (32-36) g/dl RDW (11.5-14.0) % Plt Count (150-450) K/mm3 MPV (7.5-11.0) fl Gran % (36.0-66.0) % Eos # (Auto) (0-0.5) Absolute Lymphs (auto) (1.0-4.6) Absolute Monos (auto) (0.0-1.3) Lymphocytes % (24.0-44.0) % Monocytes % (0.0-12.0) % Eosinophils % (0.00-5.0) % Basophils % (0.0-0.4) % Absolute Granulocytes (1.4-6.9) Basophils # (0-0.4) Sodium (137-145) mmol/L Potassium (3.5-5.1) mmol/L Chloride (98-107) mmol/L Carbon Dioxide (22-30) mmol/L Anion Gap (5-15) MEQ/L BUN (9-20) mg/dL Creatinine (0.66-1.25) mg/dL Estimated GFR ML/MIN Glucose (74-106) mg/dL Lactic Acid (0.4-2.0) Calcium (8.4-10.2) mg/dL Total Bilirubin (0.2-1.3) mg/dL AST (17-59) U/L ALT (0-50) U/L Alkaline Phosphatase (38-126) U/L Serum Total Protein (6.3-8.2) g/dL Albumin (3.5-5.0) g/dL Amylase (30-110) U/L Lipase (23-300) U/L Urine Color YELLOW (YELLOW) Urine Appearance CLEAR (CLEAR) Urine pH 6.0 (5-6) Ur Specific Stebbins 1.005 (1.005-1.025) Urine Protein NEGATIVE (Negative) Urine Ketones NEGATIVE (NEGATIVE) Urine Blood NEGATIVE (0-5) Reji/ul Urine Nitrite NEGATIVE (NEGATIVE) Urine Bilirubin NEGATIVE (NEGATIVE) Urine Urobilinogen NEGATIVE (0-1) mg/dL Ur Leukocyte Esterase NEGATIVE (NEGATIVE) Urine WBC (Auto) NONE SEEN (0-5) /HPF Urine RBC (Auto) NONE SEEN (0-2) /HPF U Epithel Cells (Auto) NONE (FEW) /HPF Urine Bacteria (Auto) NONE SEEN (NEGATIVE) /HPF Urine Culture Reflexed NO (NO) Urine Glucose NEGATIVE (NEGATIVE) mg/dL - Progress Progress: unchanged - Departure Departure Disposition: Home Clinical Impression: Crohn's disease of intestine, Shortened GA interval, Abdominal pain Condition: Stable Critical Care Time: No Referrals: ENEDELIA DOSS [Primary Care Provider] - Instructions: Acute Abdomen (Belly Pain), Adult (DC) Prescriptions: Prednisone 10 mg [Deltasone 10 mg] 10 mg PO TID #12 tablet Metronidazole 500 mg [Flagyl 500 MG] 500 mg PO TID #21 tablet
[2021-02-20] MEDS ORDERED: solu-MEDROL 125 MG, Sterile H2O 10 ml 2 ML IV ONE ×2 (23:46)
[2021-02-20] MEDS ORDERED: FLAGYL 500 MG IVPB 500 MG/100 ML BAG IV STA (23:47)
[2021-02-20] MEDS ORDERED: Sterile H2O 10 ml IJ ONE (23:49)
[2021-02-20] MEDS ORDERED: solu-MEDROL ONE (23:49)
[2021-02-20] MEDS ORDERED: FLAGYL 500 MG IVPB 500 MG/100 ML BAG IV ONE (23:50)
[2021-02-21 00:07] VITALS: BP 113/76; PULSE 63; O2SAT 98
--- NOTE | 2021-02-21 06:44 | XRAY ---
Indication: Left upper quadrant pain. Constipation. History of Crohn's disease. Multiple contiguous axial images obtained through the abdomen and pelvis without contrast. Comparison: June 26, 2019. Lung bases demonstrates minimal left base fibrosis/scarring. No infiltrate or effusion. Heart is not enlarged. Stable small hiatal hernia. Noncontrasted stomach and bowel loops appear nonobstructed. Mild fluid distended small bowel loops with mild wall thickening and minimal fluid leveling, ileus versus enteritis. Intact right mid abdomen anastomosis. Appendectomy reported. Gallbladder remains moderately distended without gallstones. No free fluid/air. Remaining liver, pancreas, spleen, adrenal glands, kidneys, ureters, and bladder are unremarkable for noncontrast exam. Stable minimal aortoiliac calcifications without AAA. Osseous structures intact again with mild degenerative changes throughout the spine. Impression: 1. Mild fluid distended small bowel loops with fluid leveling, ileus versus enteritis. 2. Stable small hiatal hernia and distended gallbladder without gallstones. Comment: Preliminary interpretation made by [facility]. No critical discrepancy.
== END 2021-02-21 00:36 | disposition home or self-care (01) ==
LOC: ED 21:21
DX: K50.90 Crohn's disease, unspecified, without complications (principal); I45.6 Pre-excitation syndrome; R10.9 Unspecified abdominal pain
CPT/HCPCS: 36000; 36415; 74176; 80053; 81001; 82150; 83605; 83690; 85025; 96360; 96374; 96375; 99284; J1885; J2405; J2930

== ENCOUNTER 2021-06-10 13:57 | Emergency (ER) | payer OTHER ==
[2021-06-10] MEDS ORDERED: Zofran 4 MG/2 ML VIAL IV ONE (14:07)
[2021-06-10] MEDS ORDERED: Sodium Chloride 0.9% 1000 ML 1,000 ML IV STA ×2 (14:07→15:22)
[2021-06-10] MEDS ORDERED: Sodium Chloride 0.9% 1000 ML 1,000 ML ONE ×2 (14:21→15:17)
[2021-06-10] MEDS ORDERED: Zofran 4 MG/2 ML VIAL ONE (15:02)
[2021-06-10 15:20] LABS: Hematocrit 33.9 % (42-50); Hemoglobin 12.7 gm/dl (12.5-18.0); Mean Cell Volume 83.7 fl (78-100); Mean Corpuscular Hemoglobin 31.4 pg (26-32); Mean Corpuscular Hgb Concent. 37.5 g/dl (32-36); Mean Platelet Volume 12.6 fl (7.5-11.0); Platelet Count 288 K/mm3 (150-450); Red Blood Count 4.05 M/mm3 (4.1-5.6); Red Cell Distribution Width 15.1 % (11.5-14.0); White Blood Count 19.6 K/mm3 (4.0-10.5)
[2021-06-10 15:35] LABS: ALBUMIN 2.3 g/dL (3.5-5.0); ALKALINE PHOSPHATASE 51 U/L (38-126); ANION GAP 20.1 MEQ/L (5-15); BLOOD UREA NITROGEN 53 mg/dL (9-20); CHLORIDE 110 mmol/L (98-107); Calcium 6.4 mg/dL (8.4-10.2); Creatinine 1 3.54 mg/dL (0.66-1.25); EST GLOMERULAR FILTRATION RATE 19.2 ML/MIN; ETHYL ALCOHOL < 10 mg/dL (0-10); Glucose 240 mg/dL (74-106); LIPASE 1148 U/L (23-300); MAGNESIUM 2.7 mg/dL (1.6-2.3); SGOT/AST 38 U/L (17-59); SODIUM 138 mmol/L (137-145); Total Protein 4.7 g/dL (6.3-8.2)
[2021-06-10 15:41] LABS: SGPT/ALT 43 U/L (0-50)
[2021-06-10 15:42] LABS: Carbon Dioxide 9 mmol/L (22-30); Potassium 1.7 mmol/L (3.5-5.1)
[2021-06-10 15:46] LABS: Appearance SLIGHTLY CLOUDY (CLEAR); Bilirubin NEGATIVE (NEGATIVE); Blood SMALL Ery/ul (0-5); Glucose NEGATIVE (NEGATIVE); Ketones NEGATIVE (NEGATIVE); Leukocyte Esterase NEGATIVE (NEGATIVE); Nitrite NEGATIVE (NEGATIVE); Protein,Urine Dip 100 (Negative); Specific Gravity 1.012 (1.005-1.025); Urobilinogen NEGATIVE mg/dL (0-1)
[2021-06-10 15:47] LABS: Bacteria NONE SEEN /HPF (NEGATIVE)
[2021-06-10 16:02] LABS: Amphetamine,Urine NEGATIVE (NEGATIVE); Barbiturate,Urine NEGATIVE (NEGATIVE); Benzodiazepine,Urine NEGATIVE (NEGATIVE); Cocaine,Urine NEGATIVE (NEGATIVE); Methadone,Urine NEGATIVE (NEGATIVE); Opiate,Urine NEGATIVE (NEGATIVE); PCP,Urine NEGATIVE (NEGATIVE); THC,Urine NEGATIVE (NEGATIVE)
[2021-06-10] MEDS ORDERED: POTASSIUM CHLORIDE 20 mEq IN WATER 100ML 100 ML IV ONE ×2 (16:17→18:34)
[2021-06-10] MEDS ORDERED: Sodium Chloride 0.9% 1000 ML 1,000 ML IV SCH (16:18)
[2021-06-10] MEDS: POTASSIUM CHLORIDE 20 mEq IN WATER 100ML 20 MEQ/100 ML BAG IV SCH ×2 (16:19→18:35)
--- NOTE | 2021-06-10 16:32 | ERPHSYRPT ---
- History of Present Illness Time Seen by Provider: 06/10/21 14:01 Source: patient, EMS Exam Limitations: clinical condition Patient Subjective Stated Complaint: pt here via ambulance for not altered mental status, he was found per ems on a porch with heater and family around him. they state they found him nonverbal and shaking. Triage Nursing Assessment: pt eyes open shakes head to answers, able to follow simple commands, sheivering, pupils pin point, has abrasions to back,both knees, and arms, pt very dishoveled and dirty. skin cold to touch, resp easy, Physician History: 55 years old cachectic male is brought in the ER by EMS after family found him not acting himself, he was shivering and having difficulty talking. On EMS arrival he was sitting in the porch with a heater on and family around him. Patient was having some shortness of breath which improved with 1 DuoNeb by EMS and on arrival is around 97%, currently on 2 L and 100% saturating. Patient is not talking but nodding his head yes or no to answer questions. He is moving all 4 extremities but has generalized weakness, denies any chest pain, abdominal pain vomiting or diarrhea. Patient denies any fall or trauma. Not a good historian and history is limited. Timing/Duration: today Severity: severe Associated Symptoms: weakness Allergies/Adverse Reactions: buspirone [From BuSpar] Allergy (Severe, Verified 06/10/21 14:37) Swelling Penicillins Allergy (Intermediate, Verified 06/10/21 14:37) Hives IV DYE Allergy (Intermediate, Uncoded 06/10/21 14:37) Swelling Home Medications: Cyanocobalamin 1000 Mcg/ml [Cyanocobalamin B-12 1000 MCG/ML] 1,000 mcg IM UD 04/16/20 [History] OLANZapine [Zyprexa] 2.5 mg PO DAILY 04/16/20 [History] Potassium Chloride [K-Dur] 20 meq PO TID 02/20/21 [History] Hx Tetanus, Diphtheria Vaccination/Date Given: Yes Hx Influenza Vaccination/Date Given: Yes Hx Pneumococcal Vaccination/Date Given: No Immunizations Up to Date: Yes Travel Risk - International Travel Have you traveled outside of the country in past 3 weeks: No - Coronavirus Screening Are you exhibiting any of the following symptoms?: No Close contact with a COVID-19 positive Pt in past 14-21 Days: No - Vaccine Status Have you recieved a Covid-19 vaccination: No 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: [email or web address] - Review of Systems Constitutional: Chills, Fatigue, Weakness Eyes: No Symptoms Ears, Nose, & Throat: No Symptoms Respiratory: Cough, Dyspnea Cardiac: No Symptoms Abdominal/Gastrointestinal: No Symptoms All Other Systems: Unable due to condition - Past Medical History Pertinent Past Medical History: Yes Neurological History: No Pertinent History ENT History: No Pertinent History Cardiac History: No Pertinent History Respiratory History: No Pertinent History Endocrine Medical History: No Pertinent History Musculoskeletal History: No Pertinent History GI Medical History: Crohns Disease History: No Pertinent History Psycho-Social History: Anxiety, Depression Male Reproductive Disorders: No Pertinent History Other Medical History: chronic abd pain - Past Surgical History Past Surgical History: Yes Neuro Surgical History: No Pertinent History Cardiac: No Pertinent History Respiratory: No Pertinent History Gastrointestinal: Appendectomy, Colon Resection Genitourinary: No Pertinent History Musculoskeletal: No Pertinent History Male Surgical History: No Pertinent History Other Surgical History: small bowel resection - Social History Smoking Status: Current every day smoker How long have you smoked: years Exposure to second hand smoke: Yes Drug Use: none Patient Lives Alone: Yes - Nursing Vital Signs Nursing Vital Signs: Initial Vital Signs Temperature 89.4 F 06/10/21 14:07 Pain Scale Pain Intensity 0 - Physical Exam General Appearance: no apparent distress, cachetic, other (, Disheveled) Eye Exam: PERRL/EOMI, eyes nml inspection Ears, Nose, Throat Exam: dry mucous membranes, pharyngeal erythema Neck Exam: normal inspection, non-tender, supple, full range of motion Respiratory Exam: normal breath sounds, lungs clear Cardiovascular Exam: regular rate/rhythm, normal heart sounds Gastrointestinal/Abdomen Exam: soft, normal bowel sounds, No tenderness, No guarding Back Exam: normal inspection, normal range of motion Extremity Exam: normal inspection, normal range of motion, pelvis stable Neurologic Exam: alert, oriented x 3, cooperative, wheelman II-XII nml as tested, No normal mood/affect Skin Exam: mottled, other (Cool clammy) SpO2 Interpretation: normal SpO2: 94 O2 Delivery: Room Air - Course EKG Interpreted by Me: RATE, A-fib, NORMAL AXIS, NORMAL INTERVALS, Non-specific ST Changes Ordered Tests: Active Orders 24 hr Category Date Time Status [place] DAILY Care 06/10/21 14:30 Active EKG-ER Only STAT Care 06/10/21 14:07 Active IV Insertion STAT Care 06/10/21 14:07 Active NPO (ED) STAT Care 06/10/21 14:07 Active ABDOMEN AND PELVIS W/0 CONTRAS [CT] Stat Exams 06/10/21 15:46 Completed CHEST 1 VIEW (PORTABLE) Stat Exams 06/10/21 14:07 Completed CHEST WITHOUT CONTRAST [CT] Stat Exams 06/10/21 15:56 Completed HEAD WITHOUT CONTRAST [CT] Stat Exams 06/10/21 13:59 Completed BLOOD CULTURE Stat Lab 06/10/21 15:05 Received CBC W DIFF Stat Lab 06/10/21 14:55 Completed CK (IN-HOUSE) [CK-Creatinine Phosphokinase] Stat Lab 06/10/21 14:55 Completed CMP Stat Lab 06/10/21 14:55 Completed CULTURE,URINE Stat Lab 06/10/21 14:15 Received ETHYL ALCOHOL Stat Lab 06/10/21 14:55 Completed LIPASE Stat Lab 06/10/21 14:55 Completed Lactic Acid Stat Lab 06/10/21 14:58 Completed Lactic Acid Stat Lab 06/10/21 17:01 Completed MAGNESIUM Stat Lab 06/10/21 14:55 Completed Manual Differential NC Stat Lab 06/10/21 14:55 Completed TROPONIN Q3H Lab 06/10/21 14:55 Completed TROPONIN Q3H Lab 06/10/21 16:55 Completed TROPONIN Q3H Lab 06/10/21 20:15 Ordered TROPONIN Q3H Lab 06/10/21 23:15 Ordered TROPONIN Q3H Lab 06/11/21 02:15 Ordered UA W/RFX UR CULTURE Stat Lab 06/10/21 14:11 Completed Urine Triage Profile Stat Lab 06/10/21 14:11 Completed Medication Summary Generic Name Dose Route Start Last Admin Trade Name Freq PRN Reason Stop Dose Admin Potassium Chloride 20 meq in 100 mls @ 50 mls/hr 06/10/21 15:45 06/10/21 18:35 Potassium Chloride 20 Meq In Water 100ml IV 06/10/21 19:44 50 mls/hr Q2H JOSE M Administration Sodium Chloride 1,000 mls @ 50 mls/hr 06/10/21 16:18 06/10/21 16:19 Sodium Chloride 0.9% 1000 Ml IV 07/10/21 16:17 50 mls/hr .Q20H JOSE M Administration Potassium Chloride/Sodium Chloride 1,000 mls @ 100 mls/hr 06/10/21 17:15 Sodium Chloride 0.9% W/ 20 Meq Kcl/Liter IV 07/10/21 17:14 .Q10H JOSE M Discontinued Medications Generic Name Dose Route Start Last Admin Trade Name Karma PRN Reason Stop Dose Admin Aspirin 324 mg 06/10/21 16:55 06/10/21 16:55 Aspirin 81 Mg Tab.Chew PO 06/10/21 16:56 324 mg STAT ONE Administration Sodium Chloride 1,000 mls @ 999 mls/hr 06/10/21 14:07 06/10/21 15:10 Sodium Chloride 0.9% 1000 Ml IV 06/10/21 15:07 Infused .Q1H1M STA Infusion Sodium Chloride Confirm 06/10/21 14:21 Sodium Chloride 0.9% 1000 Ml Administered 06/10/21 14:22 Dose 1,000 mls @ ud .ROUTE .STK-MED ONE Sodium Chloride Confirm 06/10/21 15:17 Sodium Chloride 0.9% 1000 Ml Administered 06/10/21 15:18 Dose 1,000 mls @ ud .ROUTE .STK-MED ONE Sodium Chloride 1,000 mls @ 999 mls/hr 06/10/21 15:22 06/10/21 16:42 Sodium Chloride 0.9% 1000 Ml IV 06/10/21 16:22 Infused .Q1H1M STA Infusion Ondansetron HCl 4 mg 06/10/21 14:07 06/10/21 15:06 Ondansetron Hcl 4 Mg/2 Ml Vial IV 06/10/21 14:08 4 mg STAT ONE Administration Ondansetron HCl Confirm 06/10/21 15:02 Ondansetron Hcl 4 Mg/2 Ml Vial Administered 06/10/21 15:03 Dose 4 mg .ROUTE .STK-MED ONE Lab/Rad Data: Laboratory Result Diagrams 06/10/21 14:55 06/10/21 14:55 Laboratory Results 06/10/21 06/10/21 06/10/21 Range/Units 18:06 17:01 16:55 WBC (4.0-10.5) K/mm3 RBC (4.1-5.6) M/mm3 Hgb (12.5-18.0) gm/dl Hct (42-50) % MCV (78-100) fl MCH (26-32) pg MCHC (32-36) g/dl RDW (11.5-14.0) % Plt Count (150-450) K/mm3 MPV (7.5-11.0) fl Segmented Neutrophils (36.-66.) % Band Neutrophils (0.0-2.0) % Lymphocytes (Manual) (24-44) % Monocytes (Manual) (0.0-12.0) % Platelet Estimate (NORMAL) RBC Morphology Sodium (137-145) mmol/L Potassium (3.5-5.1) mmol/L Chloride (98-107) mmol/L Carbon Dioxide (22-30) mmol/L Anion Gap (5-15) MEQ/L BUN (9-20) mg/dL Creatinine (0.66-1.25) mg/dL Estimated GFR ML/MIN Glucose (74-106) mg/dL Lactic Acid 1.4 (0.4-2.0) Calcium (8.4-10.2) mg/dL Magnesium (1.6-2.3) mg/dL Total Bilirubin (0.2-1.3) mg/dL AST (17-59) U/L ALT (0-50) U/L Alkaline Phosphatase (38-126) U/L Creatine Kinase (55-170) U/L Troponin I 0.254 H* (0.000-0.034) ng/mL Serum Total Protein (6.3-8.2) g/dL Albumin (3.5-5.0) g/dL Lipase (23-300) U/L Urine Color (YELLOW) Urine Appearance (CLEAR) Urine pH (5-6) Ur Specific Lincoln (1.005-1.025) Urine Protein (Negative) Urine Ketones (NEGATIVE) Urine Blood (0-5) Reji/ul Urine Nitrite (NEGATIVE) Urine Bilirubin (NEGATIVE) Urine Urobilinogen (0-1) mg/dL Ur Leukocyte Esterase (NEGATIVE) Urine WBC (Auto) (0-5) /HPF Urine RBC (Auto) (0-2) /HPF U Epithel Cells (Auto) (FEW) /HPF Urine Bacteria (Auto) (NEGATIVE) /HPF Urine Culture Reflexed (NO) Urine Glucose (NEGATIVE) mg/dL Urine Opiates Level (NEGATIVE) Ur Methadone (NEGATIVE) Urine Barbiturates (NEGATIVE) Ur Phencyclidine (PCP) (NEGATIVE) Urine Amphetamine (NEGATIVE) U Benzodiazepine Level (NEGATIVE) Urine Cocaine (NEGATIVE) Urine Marijuana (THC) (NEGATIVE) Ethyl Alcohol (0-10) mg/dL Influenza Type A Ag NEGATIVE (NEGATIVE) Influenza Type B Ag NEGATIVE (NEGATIVE) RSV (PCR) NEGATIVE (Negative) SARS-CoV-2 (PCR) POSITIVE A (NEGATIVE) 06/10/21 06/10/21 06/10/21 Range/Units 14:58 14:55 14:55 WBC (4.0-10.5) K/mm3 RBC (4.1-5.6) M/mm3 Hgb (12.5-18.0) gm/dl Hct (42-50) % MCV (78-100) fl MCH (26-32) pg MCHC (32-36) g/dl RDW (11.5-14.0) % Plt Count (150-450) K/mm3 MPV (7.5-11.0) fl Segmented Neutrophils (36.-66.) % Band Neutrophils (0.0-2.0) % Lymphocytes (Manual) (24-44) % Monocytes (Manual) (0.0-12.0) % Platelet Estimate (NORMAL) RBC Morphology Sodium (137-145) mmol/L Potassium (3.5-5.1) mmol/L Chloride (98-107) mmol/L Carbon Dioxide (22-30) mmol/L Anion Gap (5-15) MEQ/L BUN (9-20) mg/dL Creatinine (0.66-1.25) mg/dL Estimated GFR ML/MIN Glucose (74-106) mg/dL Lactic Acid 5.6 H (0.4-2.0) Calcium (8.4-10.2) mg/dL Magnesium (1.6-2.3) mg/dL Total Bilirubin (0.2-1.3) mg/dL AST (17-59) U/L ALT (0-50) U/L Alkaline Phosphatase (38-126) U/L Creatine Kinase 348 H (55-170) U/L Troponin I 0.241 H* (0.000-0.034) ng/mL Serum Total Protein (6.3-8.2) g/dL Albumin (3.5-5.0) g/dL Lipase (23-300) U/L Urine Color (YELLOW) Urine Appearance (CLEAR) Urine pH (5-6) Ur Specific Lincoln (1.005-1.025) Urine Protein (Negative) Urine Ketones (NEGATIVE) Urine Blood (0-5) Reji/ul Urine Nitrite (NEGATIVE) Urine Bilirubin (NEGATIVE) Urine Urobilinogen (0-1) mg/dL Ur Leukocyte Esterase (NEGATIVE) Urine WBC (Auto) (0-5) /HPF Urine RBC (Auto) (0-2) /HPF U Epithel Cells (Auto) (FEW) /HPF Urine Bacteria (Auto) (NEGATIVE) /HPF Urine Culture Reflexed (NO) Urine Glucose (NEGATIVE) mg/dL Urine Opiates Level (NEGATIVE) Ur Methadone (NEGATIVE) Urine Barbiturates (NEGATIVE) Ur Phencyclidine (PCP) (NEGATIVE) Urine Amphetamine (NEGATIVE) U Benzodiazepine Level (NEGATIVE) Urine Cocaine (NEGATIVE) Urine Marijuana (THC) (NEGATIVE) Ethyl Alcohol (0-10) mg/dL Influenza Type A Ag (NEGATIVE) Influenza Type B Ag (NEGATIVE) RSV (PCR) (Negative) SARS-CoV-2 (PCR) (NEGATIVE) 06/10/21 06/10/21 06/10/21 Range/Units 14:55 14:55 14:11 WBC 19.6 H (4.0-10.5) K/mm3 RBC 4.05 L (4.1-5.6) M/mm3 Hgb 12.7 (12.5-18.0) gm/dl Hct 33.9 L (42-50) % MCV 83.7 (78-100) fl MCH 31.4 (26-32) pg MCHC 37.5 H (32-36) g/dl RDW 15.1 H (11.5-14.0) % Plt Count 288 (150-450) K/mm3 MPV 12.6 H (7.5-11.0) fl Segmented Neutrophils 82 H (36.-66.) % Band Neutrophils 5 H (0.0-2.0) % Lymphocytes (Manual) 7 L (24-44) % Monocytes (Manual) 6 (0.0-12.0) % Platelet Estimate NORMAL (NORMAL) RBC Morphology NORMAL Sodium 138 (137-145) mmol/L Potassium 1.7 L* (3.5-5.1) mmol/L Chloride 110 H (98-107) mmol/L Carbon Dioxide 9 L* (22-30) mmol/L Anion Gap 20.1 H (5-15) MEQ/L BUN 53 H (9-20) mg/dL Creatinine 3.54 H (0.66-1.25) mg/dL Estimated GFR 19.2 ML/MIN Glucose 240 H (74-106) mg/dL Lactic Acid (0.4-2.0) Calcium 6.4 L (8.4-10.2) mg/dL Magnesium 2.7 H (1.6-2.3) mg/dL Total Bilirubin 1.40 H (0.2-1.3) mg/dL AST 38 (17-59) U/L ALT 43 (0-50) U/L Alkaline Phosphatase 51 (38-126) U/L Creatine Kinase (55-170) U/L Troponin I (0.000-0.034) ng/mL Serum Total Protein 4.7 L (6.3-8.2) g/dL Albumin 2.3 L (3.5-5.0) g/dL Lipase 1148 H (23-300) U/L Urine Color (YELLOW) Urine Appearance (CLEAR) Urine pH (5-6) Ur Specific Lincoln (1.005-1.025) Urine Protein (Negative) Urine Ketones (NEGATIVE) Urine Blood (0-5) Reji/ul Urine Nitrite (NEGATIVE) Urine Bilirubin (NEGATIVE) Urine Urobilinogen (0-1) mg/dL Ur Leukocyte Esterase (NEGATIVE) Urine WBC (Auto) (0-5) /HPF Urine RBC (Auto) (0-2) /HPF U Epithel Cells (Auto) (FEW) /HPF Urine Bacteria (Auto) (NEGATIVE) /HPF Urine Culture Reflexed (NO) Urine Glucose (NEGATIVE) mg/dL Urine Opiates Level NEGATIVE (NEGATIVE) Ur Methadone NEGATIVE (NEGATIVE) Urine Barbiturates NEGATIVE (NEGATIVE) Ur Phencyclidine (PCP) NEGATIVE (NEGATIVE) Urine Amphetamine NEGATIVE (NEGATIVE) U Benzodiazepine Level NEGATIVE (NEGATIVE) Urine Cocaine NEGATIVE (NEGATIVE) Urine Marijuana (THC) NEGATIVE (NEGATIVE) Ethyl Alcohol < 10 (0-10) mg/dL Influenza Type A Ag (NEGATIVE) Influenza Type B Ag (NEGATIVE) RSV (PCR) (Negative) SARS-CoV-2 (PCR) (NEGATIVE) 06/10/21 Range/Units 14:11 WBC (4.0-10.5) K/mm3 RBC (4.1-5.6) M/mm3 Hgb (12.5-18.0) gm/dl Hct (42-50) % MCV (78-100) fl MCH (26-32) pg MCHC (32-36) g/dl RDW (11.5-14.0) % Plt Count (150-450) K/mm3 MPV (7.5-11.0) fl Segmented Neutrophils (36.-66.) % Band Neutrophils (0.0-2.0) % Lymphocytes (Manual) (24-44) % Monocytes (Manual) (0.0-12.0) % Platelet Estimate (NORMAL) RBC Morphology Sodium (137-145) mmol/L Potassium (3.5-5.1) mmol/L Chloride (98-107) mmol/L Carbon Dioxide (22-30) mmol/L Anion Gap (5-15) MEQ/L BUN (9-20) mg/dL Creatinine (0.66-1.25) mg/dL Estimated GFR ML/MIN Glucose (74-106) mg/dL Lactic Acid (0.4-2.0) Calcium (8.4-10.2) mg/dL Magnesium (1.6-2.3) mg/dL Total Bilirubin (0.2-1.3) mg/dL AST (17-59) U/L ALT (0-50) U/L Alkaline Phosphatase (38-126) U/L Creatine Kinase (55-170) U/L Troponin I (0.000-0.034) ng/mL Serum Total Protein (6.3-8.2) g/dL Albumin (3.5-5.0) g/dL Lipase (23-300) U/L Urine Color YELLOW (YELLOW) Urine Appearance SLIGHTLY CLOUDY (CLEAR) Urine pH 6.0 (5-6) Ur Specific Lincoln 1.012 (1.005-1.025) Urine Protein 100 (Negative) Urine Ketones NEGATIVE (NEGATIVE) Urine Blood SMALL (0-5) Reji/ul Urine Nitrite NEGATIVE (NEGATIVE) Urine Bilirubin NEGATIVE (NEGATIVE) Urine Urobilinogen NEGATIVE (0-1) mg/dL Ur Leukocyte Esterase NEGATIVE (NEGATIVE) Urine WBC (Auto) 3-5 (0-5) /HPF Urine RBC (Auto) 3-5 (0-2) /HPF U Epithel Cells (Auto) NONE (FEW) /HPF Urine Bacteria (Auto) NONE SEEN (NEGATIVE) /HPF Urine Culture Reflexed ORDERED SEPARATELY (NO) Urine Glucose NEGATIVE (NEGATIVE) mg/dL Urine Opiates Level (NEGATIVE) Ur Methadone (NEGATIVE) Urine Barbiturates (NEGATIVE) Ur Phencyclidine (PCP) (NEGATIVE) Urine Amphetamine (NEGATIVE) U Benzodiazepine Level (NEGATIVE) Urine Cocaine (NEGATIVE) Urine Marijuana (THC) (NEGATIVE) Ethyl Alcohol (0-10) mg/dL Influenza Type A Ag (NEGATIVE) Influenza Type B Ag (NEGATIVE) RSV (PCR) (Negative) SARS-CoV-2 (PCR) (NEGATIVE) - Progress Progress: improved Progress Note: 06/10/21 16:32 55 years old is evaluated for altered mental status, hypothermia on presentation in upper 80s, given 1 fluid boluses, placed in Bob hugger, temperature started to improve. I have obtained stat CT head which is negative for any acute findings. Chest x-ray reviewed by me did not reveal any obvious acute findings. EKG no ST elevations. Has a white count of 19, chemistries showed acute renal failure with a creatinine of 3.5 with a BUN in 50s and baseline normal and also has hypokalemia 1.7 with a magnesium of 2.7. Initial troponin at 0.24 but denies any chest pain. On reevaluation his temperature is improved to 96 and patient is talking now and denies any focal weakness or any pain. Has a lactate of 5.6 and given fluid bolus per sepsis protocol and given a dose of antibiotics. This could be secondary to dehydration as no obvious focus of infection found. Urinalysis clear. Discussed with Dr. Taylor, reviewed history, work-up, recommended transfer to facility with cardiology and nephrology services. [facility] is paged. 06/10/21 16:[address] Alejandre at [facility], reviewed history, work-up and current management and agreed with transfer. 06/10/21 18:46 patient has a positive COVID-19. Counseled pt/family regarding: lab results, diagnosis, need for follow-up, rad results - Departure Departure Disposition: Transfer Clinical Impression: Hypokalemia, NSTEMI (non-ST elevated myocardial infarction), Dehydration Hypothermia Qualifiers: Encounter type: initial encounter Qualified Code(s): T68.XXXA - Hypothermia, initial encounter Acute renal failure Qualifiers: Acute renal failure type: unspecified Qualified Code(s): N17.9 - Acute kidney failure, unspecified Pancreatitis Qualifiers: Pancreatitis type: unspecified pancreatitis type Condition: Fair Critical Care Time: Yes Critical Care Time(excluding separately billable procedures): Critical 30-74 mins Referrals: ENEDELIA DOSS [Primary Care Provider] - Follow up/PCP as directed
[2021-06-10 16:46] LABS: BAND 5 % (0.0-2.0); Lymphocytes 7 % (24-44); Monocyte 6 % (0.0-12.0); Neutrophils 82 % (36.-66.); Platelet Estimate NORMAL (NORMAL); Total Cells Counted 100
[2021-06-10] MEDS ORDERED: BABY ASPIRIN 81 MG CHEW PO ONE (16:55)
[2021-06-10] MEDS ORDERED: Sodium Chloride 0.9% W/ 20 mEq KCl/LITER 1,000 ML IV SCH (17:15)
[2021-06-10 18:52] LABS: INFLUENZA A NEGATIVE (NEGATIVE); INFLUENZA B NEGATIVE (NEGATIVE); RESPIRATORY SYNCTIAL VIRUS NEGATIVE (Negative)
[2021-06-10 18:53] LABS: SARS-CoV-2 Xpert Express POSITIVE (NEGATIVE)
--- NOTE | 2021-06-10 19:13 | XRAY ---
Indication: Altered mental status. Found unable to follow commands. Multiple contiguous axial images obtained through the head without contrast. Comparison: None Age-appropriate global atrophy. No acute intracranial hemorrhage, abnormal extra-axial fluid collection, or mass effect. Fourth ventricle is midline without hydrocephalus. Ortez-white matter differentiation preserved. Bony calvarium intact. Visualized paranasal sinuses and mastoid air cells are clear. Patient is edentulous. Impression: Negative CT head without contrast exam. Comment: Preliminary interpretation made by [facility]. No critical discrepancy.
--- NOTE | 2021-06-10 19:17 | XRAY ---
Indication: Dyspnea. Altered mental status. Found unable to follow commands. Multiple contiguous axial images obtained through the chest without contrast. Comparison: April 17, 2020 Study is degraded by minimal respiration artifact and beam artifact from patient's arms. Stable minimal scattered fibrosis/scarring and minimal subpleural cystic changes bilaterally. Mid to lower lung somers demonstrate new minimal peripheral patchy groundglass airspace disease bilaterally. No effusion. Heart is not enlarged. Aorta is normal in course and caliber. No pathologic mediastinal lymphadenopathy. Bony thorax intact again with minimal degenerative changes of the spine and small multilevel Schmorl nodes. CT abdomen/pelvis reported separately. Impression: 1. Respiration and beam artifact. 2. New bilateral mid to lower lung peripheral patchy airspace disease. Commonly reported imaging features of Covid 19 pneumonia are present. Other processes such as influenza pneumonia and organizing pneumonia, as can be seen with drug toxicity and connective tissue disease, can cause a similar imaging pattern. Comment: Preliminary interpretation made by [facility]. No critical discrepancy.
--- NOTE | 2021-06-10 19:19 | XRAY ---
Indication: Short of breath. General weakness. Comparison: April 16, 2020. Portable chest again hyperinflated with new CT proven minimal bibasilar patchy airspace disease. Remaining heart and upper lungs unremarkable. Bony thorax intact.
--- NOTE | 2021-06-10 19:23 | XRAY ---
Indication: Abdomen tenderness. Altered mental status. Found unable to follow commands. Multiple contiguous axial images obtained through the abdomen and pelvis without contrast. Comparison: February 20, 2021. CT chest reported separately. Study is degraded by normal respiration artifact and beam artifact from patient's arms. Noncontrasted stomach and bowel loops appear nonobstructed. Intact right mid abdomen anastomosis. Appendectomy reported previously. Gallbladder remains moderately distended without obvious gallstones. Stable fatty liver. Urinary bladder demonstrates new Drummond balloon catheter in situ. Remaining pancreas, spleen, adrenal glands, kidneys, and ureters are unremarkable for noncontrast exam. Stable minimal aortoiliac calcifications. Osseous structures intact again with mild degenerative changes throughout the thoracolumbar spine. Impression: 1. Respiration and beam artifact. 2. Again distended gallbladder without gallstones. Sonogram may yield further information if clinically warranted. 3. New Drummond balloon catheter in situ. 4. Incidental fatty liver and chronic bony findings. Comment: Preliminary interpretation made by [facility]. No critical discrepancy.
[2021-06-10 21:54] VITALS: BP 127/88; PULSE 77; O2SAT 95
== END 2021-06-10 22:47 | disposition short-term general hospital (02) ==
LOC: ED 13:57
DX: I21.4 Non-ST elevation (NSTEMI) myocardial infarction (principal); T68.XXXA Hypothermia, initial encounter; N17.9 Acute kidney failure, unspecified; K85.90 Acute pancreatitis without necrosis or infection, unspecified; E87.6 Hypokalemia; E86.0 Dehydration; R64 Cachexia; R06.02 Shortness of breath; R53.1 Weakness; Z72.0 Tobacco use; U07.1 COVID-19; R06.00 Dyspnea, unspecified; R05.9 Cough, unspecified
CPT/HCPCS: 0241U; 36000; 36415; 51702; 70450; 71045; 71250; 74176; 80053; 80307; 81001; 82550; 83605; 83690; 83735; 84484; 85025; 87040; 87086; 93005; 96360; 96365; 96366; 96374; 99285; 99291; J2405; J3480; A9270-GY; G0480

== ENCOUNTER 2021-10-02 11:25 | Emergency (ER) | payer MEDICAID, OTHER ==
[2021-10-02 11:39] VITALS: O2SAT 100
--- NOTE | 2021-10-02 11:54 | ERPHSYRPT ---
- History of Present Illness Time Seen by Provider: 10/02/21 11:52 Source: patient Exam Limitations: no limitations Patient Subjective Stated Complaint: Pt stated that he was having pain in his right wrist yesterday and then today he was unable to lift up his cup of coffee or do the dishes, pt denies any injury Triage Nursing Assessment: Pt brought self to the ER, hypertensive, rates pain as 9/10, pulses normal, pain with movement or touching, denies any injury, no other complaints at this time Physician History: Pt stated that he was having pain in his right wrist yesterday and then today he was unable to lift up his cup of coffee or do the dishes, pt denies any injury Occurred: yesterday Method of Injury: unknown Quality: constant Severity of Pain-Max: moderate Severity of Pain-Current: moderate Extremities Pain Location: wrist: right Modifying Factors: Improves With: nothing Associated Symptoms: none Allergies/Adverse Reactions: buspirone [From BuSpar] Allergy (Severe, Verified 10/02/21 11:39) Swelling Penicillins Allergy (Intermediate, Verified 10/02/21 11:39) Hives IV DYE Allergy (Intermediate, Uncoded 10/02/21 11:39) Swelling Home Medications: Cyanocobalamin 1000 Mcg/ml [Cyanocobalamin B-12 1000 MCG/ML] 1,000 mcg IM UD 04/16/20 [History] Potassium Chloride [K-Dur] 20 meq PO DAILY 02/20/21 [History] Mesalamine [Pentasa] 250 mg PO QID 10/02/21 [History] Midodrine HCl 5 mg [Proamatine 5 mg] 5 mg PO TID 10/02/21 [History] Rivaroxaban 10 mg Tablet [Xarelto 10 mg Tablet] 10 mg PO DAILY 10/02/21 [History] Hx Tetanus, Diphtheria Vaccination/Date Given: Yes Hx Influenza Vaccination/Date Given: Yes Hx Pneumococcal Vaccination/Date Given: No Travel Risk - International Travel Have you traveled outside of the country in past 3 weeks: No - Coronavirus Screening Close contact with a COVID-19 positive Pt in past 14-21 Days: No - Vaccine Status Have you recieved a Covid-19 vaccination: Yes 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[employer] - Past Medical History Pertinent Past Medical History: Yes Neurological History: No Pertinent History ENT History: No Pertinent History Cardiac History: No Pertinent History Respiratory History: No Pertinent History Endocrine Medical History: No Pertinent History Musculoskeletal History: No Pertinent History GI Medical History: Crohns Disease History: No Pertinent History Psycho-Social History: Anxiety, Depression Male Reproductive Disorders: No Pertinent History Other Medical History: chronic abd pain - Past Surgical History Past Surgical History: Yes Neuro Surgical History: No Pertinent History Cardiac: No Pertinent History Respiratory: No Pertinent History Gastrointestinal: Appendectomy, Colon Resection Genitourinary: No Pertinent History Musculoskeletal: No Pertinent History Male Surgical History: No Pertinent History Other Surgical History: small bowel resection - Social History Smoking Status: Current every day smoker How long have you smoked: years Exposure to second hand smoke: Yes Drug Use: none Patient Lives Alone: No - Nursing Vital Signs Nursing Vital Signs: Initial Vital Signs Temperature 97.0 F 10/02/21 11:32 Pulse Rate 83 10/02/21 11:32 Blood Pressure 153/104 10/02/21 11:32 O2 Sat by Pulse Oximetry 100 10/02/21 11:32 Pain Scale Pain Intensity 9 - Physical Exam General Appearance: alert Eyes, Ears, Nose, Throat Exam: moist mucous membranes Neck Exam: non-tender, supple Cardiovascular/Respiratory Exam: chest non-tender, normal breath sounds, regular rate/rhythm, no respiratory distress Abdominal Exam: non-tender, No guarding Back Exam: normal inspection, No vertebral tenderness Wrist Exam: soft tissue tenderness, swelling, No deformity Hand Exam: normal inspection Neuro/Tendon Exam: normal sensation, normal motor functions Mental Status Exam: alert, oriented x 3, cooperative Skin Exam: normal color, warm, dry SpO2 Interpretation: normal SpO2: 100 O2 Delivery: Room Air - Course Nursing assessment & vital signs reviewed: Yes - Radiology Exams Wrist X-ray Interpretation: Reviewed by me Ordered Tests: Active Orders 24 hr Category Date Time Status WRIST (MIN 3 VIEWS) Stat Exams 10/02/21 11:35 Taken CBC W DIFF Stat Lab 10/02/21 12:32 Completed CMP Stat Lab 10/02/21 12:32 Completed Uric Acid Stat Lab 10/02/21 12:32 Completed Medication Summary Discontinued Medications Generic Name Dose Route Start Last Admin Trade Name Freq PRN Reason Stop Dose Admin Ketorolac Tromethamine 60 mg 10/02/21 12:11 10/02/21 12:31 Ketorolac Tromethamine 30 Mg/Ml Inj IM 10/02/21 12:12 60 mg STAT ONE Administration Ketorolac Tromethamine Confirm 10/02/21 12:26 Ketorolac Tromethamine 30 Mg/Ml Inj Administered 10/02/21 12:27 Dose 60 mg .ROUTE .STK-MED ONE Lab/Rad Data: Laboratory Result Diagrams 10/02/21 12:32 10/02/21 12:32 Laboratory Results 10/02/21 10/02/21 Range/Units 12:32 12:32 WBC 14.4 H (4.0-10.5) K/mm3 RBC 4.37 (4.1-5.6) M/mm3 Hgb 13.6 (12.5-18.0) gm/dl Hct 40.4 L (42-50) % MCV 92.4 (78-100) fl MCH 31.1 (26-32) pg MCHC 33.7 (32-36) g/dl RDW 14.9 H (11.5-14.0) % Plt Count 259 (150-450) K/mm3 MPV 9.8 (7.5-11.0) fl Gran % 66.1 H (36.0-66.0) % Eos # (Auto) 0.22 (0-0.5) Absolute Lymphs (auto) 3.45 (1.0-4.6) Absolute Monos (auto) 1.17 (0.0-1.3) Lymphocytes % 24.0 (24.0-44.0) % Monocytes % 8.2 (0.0-12.0) % Eosinophils % 1.5 (0.00-5.0) % Basophils % 0.2 (0.0-0.4) % Absolute Granulocytes 9.48 H (1.4-6.9) Basophils # 0.03 (0-0.4) Sodium 137 (137-145) mmol/L Potassium 3.8 (3.5-5.1) mmol/L Chloride 112 H (98-107) mmol/L Carbon Dioxide 18 L (22-30) mmol/L Anion Gap 11.0 (5-15) MEQ/L BUN 10 (9-20) mg/dL Creatinine 0.91 (0.66-1.25) mg/dL Estimated GFR > 60.0 ML/MIN Glucose 80 (74-106) mg/dL Uric Acid 4.7 (3.5-7.2) mg/dL Calcium 8.8 (8.4-10.2) mg/dL Total Bilirubin 0.60 (0.2-1.3) mg/dL AST 25 (17-59) U/L ALT 20 (0-50) U/L Alkaline Phosphatase 98 (38-126) U/L Serum Total Protein 6.4 (6.3-8.2) g/dL Albumin 3.6 (3.5-5.0) g/dL - Progress Progress: improved, pain not gone completely Counseled pt/family regarding: lab results, diagnosis, need for follow-up, rad results - Departure Departure Disposition: Home Clinical Impression: Right wrist pain, Hx of Crohn's disease Condition: Stable Critical Care Time: No Referrals: ENEDELIA DOSS [Primary Care Provider] - Follow Up with PCP/3 days Instructions: Wrist Sprain (DC) Additional Instructions: Discharge/Care Plan AMA CARR was seen on 10/02/21 in the Emergency Room. The patient was counseled regarding Diagnosis,Lab results, Imaging studies, need for follow up and when to return to the Emergency Room. Prescriptions given: Discharge Note I have spoken with the patient and/or caregivers. I have explained the patient's condition, diagnosis and treatment plan based on the information available to me at this time. I have answered the patient's and/or caregiver's questions and addressed any concerns. The patient and/or caregivers have as good understanding of the patient's diagnosis, condition and treatment plan as can be expected at this point. The vital signs have been stable. The patient's condition is stable and appropriate for discharge from the emergency department. The patient will pursue further outpatient evaluation with the primary care physician or other designated or consulting physician as outlined in the discharge instructions. The patient and/or caregivers are agreeable to this plan of care and follow-up instructions have been explained in detail. The patient and/or caregivers have received these instruction. The patient/and or caregivers are aware that any significant change in condition or worsening of symptoms should prompt an immediate return to this or the closest emergency department or call 911. AMA CARR was seen on 10/02/21 n the Emergency Room. At that time you were treated for an emergent condition, during your visit Laboratory, Radi ology and/or other procedures may have been ordered. It is very important that you follow-up with your Primary Care Physician ENEDELIA DOSS within the next 24-48 hours to review your Emergency Room visit and the final results of testing that was ordered. Some test results such as Urine Cultures, Blood Cultures, and other cultures if ordered will not be finalized for 24-48 hours. If you do not have a Primary Care Provider please call the medical records department at [phone] ext [phone] to obtain a copy of your results or you may sign into our patient portal to obtain these results by visiting us @ [email or web address] and completing the following steps: 1. Click on the Patient Portal link 2. Click the Patient Self Enrollment Link to complete the enrollment form and entering your 3. Once the enrollment form is completed you will receive an email with a temporary ID and password at the email address you provided. 4. Next choose a user name and password. Your user name must be at least 4 characters long and your password must be at least 4 characters long. 5. Choose a security question from the list and provide your answer to the question. If you already have signed into the Health Portal you may access your Health Care Information 06/02 by the following steps: 1. Login to our website @ [email or web address] 2. Enter your original user name and password. FAQS The [facility] Health Portal is an online tool that contains your Lab Results, Radiology Reports, Visit History, Discharge Instructions and Health Summary Lab and Radiology Results will not be available for 72 hours on the portal. The Portal is a secure site, passwords are encryted and URLs are re-written so they cannot be copied and pasted. You and authorized family members are the only ones who can access your Portal. Also there is a timeout feature that protects your information if you leave the Portal page open. If you have technical difficulty please use the Contact Us link on the page this will allow you to submit any questions you have regarding the Portal or you may contact the Medical Record Department at [phone] ext [phone]. Prescriptions: Methylprednisolone Packet [Medrol Dosepack] 4 mg PO UD #30 packet
[2021-10-02] MEDS ORDERED: TORAdol 30 mg Injection IM ONE (12:11)
[2021-10-02] MEDS ORDERED: TORAdol 30 mg Injection ONE (12:26)
[2021-10-02 12:34] LABS: Absolute Neutrophil Ct (ANC) 9.48 (1.4-6.9); Basophil (Absolute #) 0.03 (0-0.4); Eosinophil % 1.5 % (0.00-5.0); Eosinophil (Absolute #) 0.22 (0-0.5); Hematocrit 40.4 % (42-50); Hemoglobin 13.6 gm/dl (12.5-18.0); Lymphocyte (Absolute #) 3.45 (1.0-4.6); Mean Cell Volume 92.4 fl (78-100); Mean Corpuscular Hemoglobin 31.1 pg (26-32); Mean Corpuscular Hgb Concent. 33.7 g/dl (32-36); Mean Platelet Volume 9.8 fl (7.5-11.0); Monocyte (Absolute #) 1.17 (0.0-1.3); Monocytes % 8.2 % (0.0-12.0); Neutrophil % 66.1 % (36.0-66.0); Platelet Count 259 K/mm3 (150-450); Red Blood Count 4.37 M/mm3 (4.1-5.6); Red Cell Distribution Width 14.9 % (11.5-14.0); White Blood Count 14.4 K/mm3 (4.0-10.5)
[2021-10-02 12:45] LABS: ALBUMIN 3.6 g/dL (3.5-5.0); ALKALINE PHOSPHATASE 98 U/L (38-126); BLOOD UREA NITROGEN 10 mg/dL (9-20); CHLORIDE 112 mmol/L (98-107); Calcium 8.8 mg/dL (8.4-10.2); Carbon Dioxide 18 mmol/L (22-30); Creatinine 1 0.91 mg/dL (0.66-1.25); EST GLOMERULAR FILTRATION RATE > 60.0 ML/MIN; Glucose 80 mg/dL (74-106); Potassium 3.8 mmol/L (3.5-5.1); SGOT/AST 25 U/L (17-59); SGPT/ALT 20 U/L (0-50); SODIUM 137 mmol/L (137-145); Total Protein 6.4 g/dL (6.3-8.2); Uric Acid 4.7 mg/dL (3.5-7.2)
[2021-10-02 13:17] VITALS: BP 156/98; PULSE 71
--- NOTE | 2021-10-02 19:20 | XRAY ---
Indication: Pain. No known injury. Comparison: None 3 view right wrist demonstrates mild 1st metacarpal multangular degenerative changes and tiny distal ulnar heterotopic ossifications either developmental versus old injury. No other bony, articular, or soft tissue abnormalities.
== END 2021-10-02 13:17 | disposition home or self-care (01) ==
LOC: ED 11:25
DX: M25.531 Pain in right wrist (principal); K50.90 Crohn's disease, unspecified, without complications; Z72.0 Tobacco use; Z79.01 Long term (current) use of anticoagulants; Z79.899 Other long term (current) drug therapy; Z79.52 Long term (current) use of systemic steroids
CPT/HCPCS: 36415; 73110; 80053; 84550; 85025; 96372; 99284; J1885

== ENCOUNTER 2023-02-07 17:18 | Observation (INO) | payer OTHER ==
[2023-02-07] MEDS ORDERED: CLINDAMYCIN-D5W 900 MG/50 ML*** 900 MG/50 ML BAG IV STA (17:52)
[2023-02-07] MEDS ORDERED: VANCOMYCIN 1 GRAM/200 ML BAG 1 GM/200 ML PIGGYBACK IV ONE ×2 (17:52→18:09)
[2023-02-07] MEDS ORDERED: CLINDAMYCIN-D5W 900 MG/50 ML*** 900 MG/50 ML BAG IV ONE (18:09)
[2023-02-07 18:15] LABS: Absolute Neutrophil Ct (ANC) 8.21 x10^3/uL (1.4-6.9); BASOPHIL % 0.4 % (0.0-0.4); Basophil (Absolute #) 0.05 x10^3/uL (0-0.4); Eosinophil % 2.4 % (0.00-5.0); Hematocrit 34.6 % (42-50); Hemoglobin 11.8 g/dL (12.5-18.0); IMMATURE GRAN # 0.04 x10^3u/L (0.00-0.03); IMMATURE GRAN % 0.3 % (0.00-0.4); Lymphocyte (Absolute #) 2.53 x10^3/uL (1.0-4.6); Lymphocytes % 20.5 % (24.0-44.0); Mean Cell Volume 87.8 fL (78-100); Mean Corpuscular Hemoglobin 29.9 pg (26-32); Mean Corpuscular Hgb Concent. 34.1 g/dL (32-36); Mean Platelet Volume 10.1 fL (7.5-11.0); Monocyte (Absolute #) 1.24 x10^3/uL (0.0-1.3); Neutrophil % 66.4 % (36.0-66.0); Platelet Count 242 x10^3/uL (150-450); Red Blood Count 3.94 x10^6/uL (4.1-5.6); Red Cell Distribution Width 13.7 % (11.5-14.0); White Blood Count 12.4 x10^3/uL (4.0-10.5)
[2023-02-07 18:27] LABS: ALBUMIN 3.4 g/dL (3.5-5.0); ALKALINE PHOSPHATASE 100 U/L (38-126); ANION GAP 13.6 MEQ/L (5-15); BLOOD UREA NITROGEN 10 mg/dL (9-20); CHLORIDE 108 mmol/L (98-107); Calcium 8.5 mg/dL (8.4-10.2); Carbon Dioxide 20 mmol/L (22-30); Creatinine 1 1.18 mg/dL (0.66-1.25); EST GLOMERULAR FILTRATION RATE > 60.0 ML/MIN; Glucose 97 mg/dL (74-106); Potassium 3.1 mmol/L (3.5-5.1); SGOT/AST 26 U/L (17-59); SGPT/ALT 18 U/L (0-50); SODIUM 138 mmol/L (137-145); Total Protein 6.4 g/dL (6.3-8.2)
[2023-02-07] MEDS: Sodium Chloride 0.9% 1000 ML 1,000 ML IV SCH (18:46)
--- NOTE | 2023-02-07 20:50 | ERPHSYRPT ---
- History of Present Illness Time Seen by Provider: 02/07/23 21:09 Source: patient Exam Limitations: no limitations Patient Subjective Stated Complaint: PT states "I went to [facility] and the abscess on my face was much smaller than it is now." Triage Nursing Assessment: Pt presented alert and oriented X 3, skin pwd. Pt ambulates with an upright steady gait, able to speak in clear full sentences pt has swelling noted to right side of face and right eye. Physician History: Patient is a 57-year-old male presents to our ED for evaluation of "facial abscess". Patient states symptoms started yesterday night. Symptoms significantly worsened. [facility] went to [facility]. Patient was given a prescription for clindamycin. Patient is here today because he feels his swelling has gotten significantly worse over short period of time. Patient otherwise has no systemic manifestations. No trauma. No fever. No nausea vomiting or diaphoresis. No acute change in vision. No eye pain. Symptoms are mild to moderate in intensity. No specific worsening improving factors. Patient voices no other complaints concerns at this time. Portions of this note were created with voice recognition technology. There may be grammatical, spelling, punctuation or sound alike errors Timing/Duration: yesterday Severity: moderate Modifying Factors: Improves With: nothing Associated Symptoms: denies symptoms Allergies/Adverse Reactions: buspirone [From BuSpar] Allergy (Severe, Verified 10/02/21 11:39) Swelling Penicillins Allergy (Intermediate, Verified 10/02/21 11:39) Hives IV DYE Allergy (Intermediate, Uncoded 10/02/21 11:39) Swelling Home Medications: Ergocalciferol (Vitamin D2) [Vitamin D2] 1,250 mcg PO WEEKLY 02/07/23 [History] Mesalamine [Pentasa] 500 mg PO QID 02/07/23 [History] PARoxetine HCL [Paxil] 10 mg PO DAILY 02/07/23 [History] Potassium Chloride [Klor-Con] 20 meq PO 20 02/07/23 [History] clindamycin HCL [Clindamycin HCl] 300 mg PO QID 02/07/23 [History] Hx Tetanus, Diphtheria Vaccination/Date Given: Yes Hx Influenza Vaccination/Date Given: Yes Hx Pneumococcal Vaccination/Date Given: No Travel Risk - International Travel Have you traveled outside of the country in past 3 weeks: No - Coronavirus Screening Are you exhibiting any of the following symptoms?: No Close contact with a COVID-19 positive Pt in past 14-21 Days: No - Vaccine Status Have you recieved a Covid-19 vaccination: Yes 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 - Review of Systems Constitutional: No Symptoms, No Fever, No Chills Eyes: No Symptoms Ears, Nose, & Throat: No Symptoms Respiratory: No Symptoms, No Cough, No Dyspnea Cardiac: No Symptoms, No Chest Pain, No Edema, No Syncope Abdominal/Gastrointestinal: No Symptoms, No Abdominal Pain, No Nausea, No Vomiting, No Diarrhea Genitourinary Symptoms: No Symptoms, No Dysuria Musculoskeletal: No Symptoms, No Back Pain, No Neck Pain Skin: No Symptoms, No Rash Neurological: No Symptoms, No Dizziness, No Focal Weakness, No Sensory Changes Psychological: No Symptoms Endocrine: No Symptoms Hematologic/Lymphatic: No Symptoms Immunological/Allergic: No Symptoms All Other Systems: Reviewed and Negative - Past Medical History Pertinent Past Medical History: Yes Neurological History: No Pertinent History ENT History: No Pertinent History Cardiac History: No Pertinent History Respiratory History: No Pertinent History Endocrine Medical History: No Pertinent History Musculoskeletal History: No Pertinent History GI Medical History: Crohns Disease History: No Pertinent History Psycho-Social History: Anxiety, Depression Male Reproductive Disorders: No Pertinent History Other Medical History: chronic abd pain - Past Surgical History Past Surgical History: Yes Neuro Surgical History: No Pertinent History Cardiac: No Pertinent History Respiratory: No Pertinent History Gastrointestinal: Appendectomy, Colon Resection Genitourinary: No Pertinent History Musculoskeletal: No Pertinent History Male Surgical History: No Pertinent History Other Surgical History: small bowel resection - Social History Smoking Status: Current every day smoker How long have you smoked: years Exposure to second hand smoke: Yes Drug Use: none Patient Lives Alone: No - Nursing Vital Signs Nursing Vital Signs: Initial Vital Signs Temperature 99.1 F 02/07/23 17:25 Pulse Rate 86 02/07/23 17:25 Respiratory Rate 20 02/07/23 17:25 Blood Pressure 150/86 02/07/23 17:25 O2 Sat by Pulse Oximetry 98 02/07/23 17:25 Pain Scale Pain Intensity 2 - Physical Exam General Appearance: no apparent distress, alert, other (Right facial swelling.) Eye Exam: PERRL/EOMI, eyes nml inspection Ears, Nose, Throat Exam: normal ENT inspection, TMs normal, pharynx normal, moist mucous membranes Neck Exam: normal inspection, non-tender, supple, full range of motion Respiratory Exam: normal breath sounds, lungs clear, airway intact, No respiratory distress Cardiovascular Exam: regular rate/rhythm, normal heart sounds, normal peripheral pulses Gastrointestinal/Abdomen Exam: soft, normal bowel sounds, No tenderness, No mass Back Exam: normal inspection, normal range of motion, No CVA tenderness, No vertebral tenderness Extremity Exam: normal inspection, normal range of motion, pelvis stable Neurologic Exam: alert, oriented x 3, cooperative, normal mood/affect, nml cerebellar function, nml station & gait, sensation nml, No motor deficits Skin Exam: normal color, warm, dry, No rash Lymphatic Exam: inguinal node tender (L), No adenopathy SpO2 Interpretation: normal SpO2: 99 O2 Delivery: Room Air - Course Nursing assessment & vital signs reviewed: Yes - CT Exams Other CT Interpretation: Tele-radiologist Report (CT orbit shows no comps. Diffuse right facial soft tissue swelling. Otherwise negative orbits) Ordered Tests: Active Orders 24 hr Category Date Time Status IV Insertion STAT Care 02/07/23 17:51 Active ORBITS WITHOUT CONTRAST [CT] Stat Exams 02/07/23 18:21 Taken BLOOD CULTURE Stat Lab 02/07/23 17:45 Received CBC W DIFF Stat Lab 02/07/23 17:45 Completed CMP Stat Lab 02/07/23 17:45 Completed Lactic Acid Stat Lab 02/07/23 17:59 Completed Transfer Order Routine Transfer 02/07/23 Ordered Medication Summary Generic Name Dose Route Start Last Admin Trade Name Freq PRN Reason Stop Dose Admin Sodium Chloride 1,000 mls @ 100 mls/hr 02/07/23 18:00 02/07/23 18:46 Sodium Chloride 0.9% 1000 Ml IV 03/09/23 17:59 100 mls/hr .Q10H JOSE M Administration Discontinued Medications Generic Name Dose Route Start Last Admin Trade Name Freq PRN Reason Stop Dose Admin Vancomycin HCl 1 gm in 200 mls @ 125 mls/hr 02/07/23 17:52 02/07/23 20:36 Vancomycin 1 Gram/200 Ml Bag IV 02/07/23 19:27 Infused STAT ONE Infusion Clindamycin HCl/Dextrose 900 mg in 50 mls @ 100 mls/hr 02/07/23 17:52 02/07/23 20:35 Clindamycin-D5w 900 Mg/50 Ml IV 02/07/23 18:21 Infused STAT STA Infusion Clindamycin HCl/Dextrose Confirm 02/07/23 18:09 Clindamycin-D5w 900 Mg/50 Ml Administered 02/07/23 18:10 Dose 900 mg in 50 mls @ ud IV .STK-MED ONE Vancomycin HCl Confirm 02/07/23 18:09 Vancomycin 1 Gram/200 Ml Bag Administered 02/07/23 18:10 Dose 1 gm in 200 mls @ ud IV .STK-MED ONE Lab/Rad Data: Laboratory Result Diagrams 02/07/23 17:45 02/07/23 17:45 Laboratory Results 02/07/23 02/07/23 02/07/23 Range/Units 17:59 17:45 17:45 WBC 12.4 H (4.0-10.5) x10^3/uL RBC 3.94 L (4.1-5.6) x10^6/uL Hgb 11.8 L (12.5-18.0) g/dL Hct 34.6 L (42-50) % MCV 87.8 (78-100) fL MCH 29.9 (26-32) pg MCHC 34.1 (32-36) g/dL RDW 13.7 (11.5-14.0) % Plt Count 242 (150-450) x10^3/uL MPV 10.1 (7.5-11.0) fL Gran % 66.4 H (36.0-66.0) % Immature Gran % (Auto) 0.3 (0.00-0.4) % Nucleat RBC Rel Count 0.0 (0.00-0.1) % Eos # (Auto) 0.30 (0-0.5) x10^3/uL Immature Gran # (Auto) 0.04 H (0.00-0.03) x10^3u/L Absolute Lymphs (auto) 2.53 (1.0-4.6) x10^3/uL Absolute Monos (auto) 1.24 (0.0-1.3) x10^3/uL Absolute Nucleated RBC 0.00 (0.00-0.01) x10^3u/L Lymphocytes % 20.5 L (24.0-44.0) % Monocytes % 10.0 (0.0-12.0) % Eosinophils % 2.4 (0.00-5.0) % Basophils % 0.4 (0.0-0.4) % Absolute Granulocytes 8.21 H (1.4-6.9) x10^3/uL Basophils # 0.05 (0-0.4) x10^3/uL Sodium 138 (137-145) mmol/L Potassium 3.1 L (3.5-5.1) mmol/L Chloride 108 H (98-107) mmol/L Carbon Dioxide 20 L (22-30) mmol/L Anion Gap 13.6 (5-15) MEQ/L BUN 10 (9-20) mg/dL Creatinine 1.18 (0.66-1.25) mg/dL Estimated GFR > 60.0 ML/MIN Glucose 97 (74-106) mg/dL Lactic Acid 1.7 (0.4-2.0) Calcium 8.5 (8.4-10.2) mg/dL Total Bilirubin 0.60 (0.2-1.3) mg/dL AST 26 (17-59) U/L ALT 18 (0-50) U/L Alkaline Phosphatase 100 (38-126) U/L Serum Total Protein 6.4 (6.3-8.2) g/dL Albumin 3.4 L (3.5-5.0) g/dL - Progress Progress: improved Progress Note: Case discussed with Dr. Bear at [address] Bear accepts admission to observation for treatment of facial cellulitis. Patient a 57-year-old male presents to our ED with right facial swelling x1 day. Physical exam reveals a right facial cellulitis. CT face negative for abscess. Patient received. Testing ordered includes CBC which reveals a leukocytosis. CMP reveals a hypokalemia. Potassium ordered. Blood cultures obtained. Lactic acid within normal limits. Patient received a liter of IV fluids. Patient received a dose of vancomycin and clindamycin. We will admit for further evaluation and treatment. Complexity of problems addressed is moderate acute complicated No critical care time Complex of data reviewed and analyzed is extensive. Plan of care discussed with accepting hospitalist Dr. Bear. Testing ordered testing reviewed. Findings correlated clinically. Leukocytosis is expected in light of patient's cellulitis. Hypokalemia treated with oral potassium replacement. IV antibiotics infused Complications and/or risk morbidity/mortality of patient management is high. Patient will require hospitalization for further evaluation and treatment. Patient agrees to admission to [facility] for further evaluation and treatment. Vital stable Portions of this note were created with voice recognition technology. There may be grammatical, spelling, punctuation or sound alike errors 02/07/23 21:15 02/07/23 21:18 Counseled pt/family regarding: lab results, diagnosis, rad results - Departure Departure Disposition: Observation Clinical Impression: Facial cellulitis, Hypokalemia Condition: Stable Critical Care Time: No Referrals: ENEDELIA DOSS [Primary Care Provider] - Follow up/PCP as directed
[2023-02-07] MEDS ORDERED: Klor Con PO ONE (21:17)
--- NOTE | 2023-02-07 22:40 | PCM.HP ---
History of Present Illness - Chief Complaint Chief Complaint: Periorbital cellulitis History of Present Illness: is a 57 year old male who presents with one day of right sided facial swelling. He went to an urgent care and recieved clindamycin but the swelling worsened, encompassing his entire right face. Denies vision issues, pain with touching, trouble swallowing, fevers. No recent exposures that he knows of, including bug bites. - Review of Systems Eyes: Eye Redness Ears, Nose, & Throat: No Symptoms Respiratory: No Cough, No Short Of Breath Cardiac: No Chest Pain, No Edema, No Syncope Abdominal/Gastrointestinal: No Abdominal Pain, No Nausea, No Vomiting, No Diarrhea Genitourinary Symptoms: No Dysuria Musculoskeletal: No Back Pain, No Neck Pain Skin: No Rash Neurological: No Dizziness, No Focal Weakness, No Sensory Changes Medications & Allergies Home Medications: Home Medication List Ergocalciferol (Vitamin D2) [Vitamin D2] 1,250 mcg PO WEEKLY 02/07/23 [History Confirmed 02/07/23] Mesalamine [Pentasa] 500 mg PO QID 02/07/23 [History Confirmed 02/07/23] PARoxetine HCL [Paxil] 10 mg PO DAILY 02/07/23 [History Confirmed 02/07/23] Potassium Chloride [Klor-Con] 20 meq PO 20 02/07/23 [History Confirmed 02/07/23] clindamycin HCL [Clindamycin HCl] 300 mg PO QID 02/07/23 [History Confirmed 02/07/23] Allergies/Adverse Reactions: Allergies Allergy/AdvReac Type Severity Reaction Status Date / Time buspirone [From BuSpar] Allergy Severe Swelling Verified 10/02/21 11:39 Penicillins Allergy Intermediate Hives Verified 10/02/21 11:39 IV DYE Allergy Intermediate Swelling Uncoded 10/02/21 11:39 - Past Medical History Past Medical History: Yes Neurological History: No Pertinent History ENT History: No Pertinent History Cardiac History: No Pertinent History Respiratory History: No Pertinent History Endocrine Medical History: No Pertinent History Musculoskelatal History: No Pertinent History GI Medical History: Crohns Disease History: No Pertinent History Pyscho-Social History: Anxiety, Depression Male Reproductive Disorders: No Pertinent History Comment: chronic abd pain - Past Surgical History Past Surgical History: Yes Neuro Surgical History: No Pertinent History Cardiac History: No Pertinent History Respiratory Surgery: No Pertinent History GI Surgical History: Appendectomy, Colon Resection Genitourinary Surgical Hx: No Pertinent History Musculskeletal Surgical Hx: No Pertinent History Male Surgical History: No Pertinent History Other Surgical History: small bowel resection - Social History Smoking Status: Current every day smoker How long have you smoked: years Exposure to second hand smoke: Yes Alcohol: None Drug Use: none - Physical Exam Vital Signs: Vital Signs - 24 hr Temp Pulse Resp BP BP Pulse Ox 02/07/23 21:23 99 02/07/23 21:00 70 18 130/78 99 02/07/23 20:30 117/77 02/07/23 20:00 72 18 124/76 98 02/07/23 19:30 116/69 02/07/23 19:00 67 18 113/70 99 02/07/23 18:30 72 120/85 99 02/07/23 18:22 104/89 98 02/07/23 18:00 115/76 99 02/07/23 17:25 99.1 F 86 20 150/86 98 General Appearance: no apparent distress, alert Neurologic Exam: alert, oriented x 3, cooperative, normal mood/affect, nml cerebellar function, nml station & gait, sensation nml, No motor deficits Eye Exam: other (right facial swelling) Respiratory Exam: normal breath sounds, lungs clear, No respiratory distress Cardiovascular Exam: regular rate/rhythm, normal heart sounds, normal peripheral pulses Gastrointestinal/Abdomen Exam: soft, normal bowel sounds, No tenderness, No mass Extremity Exam: normal inspection, normal range of motion, pelvis stable Skin Exam: normal color, warm, dry, No rash Results - Labs Lab/Micro Results: Lab Results-Last 24 Hours 02/07/23 02/07/23 02/07/23 Range/Units 17:45 17:45 17:59 WBC 12.4 H (4.0-10.5) x10^3/uL RBC 3.94 L (4.1-5.6) x10^6/uL Hgb 11.8 L (12.5-18.0) g/dL Hct 34.6 L (42-50) % MCV 87.8 (78-100) fL MCH 29.9 (26-32) pg MCHC 34.1 (32-36) g/dL RDW 13.7 (11.5-14.0) % Plt Count 242 (150-450) x10^3/uL MPV 10.1 (7.5-11.0) fL Gran % 66.4 H (36.0-66.0) % Immature Gran % (Auto) 0.3 (0.00-0.4) % Nucleat RBC Rel Count 0.0 (0.00-0.1) % Eos # (Auto) 0.30 (0-0.5) x10^3/uL Immature Gran # (Auto) 0.04 H (0.00-0.03) x10^3u/L Absolute Lymphs (auto) 2.53 (1.0-4.6) x10^3/uL Absolute Monos (auto) 1.24 (0.0-1.3) x10^3/uL Absolute Nucleated RBC 0.00 (0.00-0.01) x10^3u/L Lymphocytes % 20.5 L (24.0-44.0) % Monocytes % 10.0 (0.0-12.0) % Eosinophils % 2.4 (0.00-5.0) % Basophils % 0.4 (0.0-0.4) % Absolute Granulocytes 8.21 H (1.4-6.9) x10^3/uL Basophils # 0.05 (0-0.4) x10^3/uL Sodium 138 (137-145) mmol/L Potassium 3.1 L (3.5-5.1) mmol/L Chloride 108 H (98-107) mmol/L Carbon Dioxide 20 L (22-30) mmol/L Anion Gap 13.6 (5-15) MEQ/L BUN 10 (9-20) mg/dL Creatinine 1.18 (0.66-1.25) mg/dL Estimated GFR > 60.0 ML/MIN Glucose 97 (74-106) mg/dL Lactic Acid 1.7 (0.4-2.0) Calcium 8.5 (8.4-10.2) mg/dL Total Bilirubin 0.60 (0.2-1.3) mg/dL AST 26 (17-59) U/L ALT 18 (0-50) U/L Alkaline Phosphatase 100 (38-126) U/L Serum Total Protein 6.4 (6.3-8.2) g/dL Albumin 3.4 L (3.5-5.0) g/dL - Radiology Impressions Radiology Exams & Impressions: Radiology Procedures Category Date Time Status ORBITS WITHOUT CONTRAST [CT] Stat Exams 02/07/23 18:21 Taken Assessment/Plan (1) Facial cellulitis Current Visit: Yes Status: Acute Assessment & Plan: Continue IV antibiotics with Vanc + Clinda and assess response in 24 hours. If improving can transition to oral antibiotics. Code(s): L03.211 - CELLULITIS OF FACE Telemedicine Encounter - Telemedicine Encounter Telemedicine Encounter: The entirety of this encounter was performed via Telemedicine"
[2023-02-08 04:52] LABS: ALKALINE PHOSPHATASE 87 U/L (38-126); ANION GAP 9.7 MEQ/L (5-15); BLOOD UREA NITROGEN 9 mg/dL (9-20); CHLORIDE 113 mmol/L (98-107); Calcium 8.1 mg/dL (8.4-10.2); Carbon Dioxide 20 mmol/L (22-30); EST GLOMERULAR FILTRATION RATE > 60.0 ML/MIN; Glucose 101 mg/dL (74-106); SGOT/AST 21 U/L (17-59); SGPT/ALT 16 U/L (0-50); SODIUM 140 mmol/L (137-145); Total Protein 5.9 g/dL (6.3-8.2)
[2023-02-08 04:53] LABS: Absolute Neutrophil Ct (ANC) 6.25 x10^3/uL (1.4-6.9); BASOPHIL % 0.5 % (0.0-0.4); Basophil (Absolute #) 0.05 x10^3/uL (0-0.4); Eosinophil % 3.7 % (0.00-5.0); Eosinophil (Absolute #) 0.37 x10^3/uL (0-0.5); Hematocrit 33.7 % (42-50); Hemoglobin 11.6 g/dL (12.5-18.0); IMMATURE GRAN # 0.02 x10^3u/L (0.00-0.03); IMMATURE GRAN % 0.2 % (0.00-0.4); Lymphocytes % 21.8 % (24.0-44.0); Mean Cell Volume 87.8 fL (78-100); Mean Corpuscular Hemoglobin 30.2 pg (26-32); Mean Corpuscular Hgb Concent. 34.4 g/dL (32-36); Mean Platelet Volume 10.1 fL (7.5-11.0); Monocytes % 11.9 % (0.0-12.0); Neutrophil % 61.9 % (36.0-66.0); Platelet Count 229 x10^3/uL (150-450); Red Blood Count 3.84 x10^6/uL (4.1-5.6); Red Cell Distribution Width 14.2 % (11.5-14.0); White Blood Count 10.1 x10^3/uL (4.0-10.5)
[2023-02-08 05:17] LABS: Potassium 2.9 mmol/L (3.5-5.1)
[2023-02-08] MEDS ORDERED: POTASSIUM CHLORIDE 20 mEq IN WATER 100ML 20 MEQ/100 ML BAG IV ONE ×2 (05:27→12:01)
[2023-02-08] MEDS: Sodium Chloride 0.9% 1000 ML 1,000 ML IV SCH ×2 (05:41→18:15)
--- NOTE | 2023-02-08 08:42 | XRAY ---
Indication: Right facial/orbits swelling. Multiple contiguous images obtained through the orbits without contrast. Sagittal and coronal reformatted images obtained. Comparison: None Orbits are bilaterally symmetric. No retro-orbital soft tissue mass. Extraocular muscles and optic nerves unremarkable. Incompletely visualized diffuse right facial and right periorbital soft tissue swelling either posttraumatic versus inflammatory/infectious. 1 cm round subcutaneous hypoattenuation adjacent to right zygomatic arch either hematoma versus microabscess. No subcutaneous emphysema. No acute fracture, suspicious bony lesions, or osseous destructive process. Paranasal sinuses, nasal passages, and mastoid air cells are clear. Moderate nasoseptal deviation to the left. Visualized base of brain unremarkable. Impression: 1. Incompletely visualized right facial and right periorbital soft tissue swelling either posttraumatic versus inflammatory/infectious. Small subcutaneous hypoattenuation either hematoma versus microabscess. Correlate clinically. 2. Incidental nasal septal deviation.
[2023-02-08] MEDS: Paxil 20 MG PO SCH (10:27)
--- NOTE | 2023-02-08 12:41 | PCM.NOTE ---
Date and Time: 02/08/23 1236 Subjective Assessment: Rash and swelling involving right side of face is significantly improving. No report of fever. Objective Exam General Appearance: no apparent distress Neurologic Exam: alert, oriented x 3, cooperative, social service coordinator II-XII nml as tested, normal mood/affect, nml cerebellar function Skin Exam: rash (Erythema, induration and swelling below right eye and on right cheek are improving. Borders marked with pen, and no advancement beyond the border is noted) Wound Assessment: Skin/Wound Assessment Wound/Incision Assessment Start: 02/07/23 21:45 Text: Status: Active Freq: Q6H Protocol: Document 02/08/23 08:00 DINORA (Rec: 02/08/23 08:57 JN [id number]) Wound/Incision Assessment Right Face Wound Assessment Shift Assessment Wound Type abscess Drainage Amount None Drainage Odor None/Absent General Appearance Open to air,Reddened Comment swelling on pt cheek and under eye marked with skin marker Eye Exam: PERRL, EOMI, eyes nml inspection Ears, Nose, Throat Exam: normal ENT inspection Neck Exam: normal inspection, non-tender, supple, full range of motion Respiratory Exam: normal breath sounds, lungs clear Cardiovascular Exam: regular rate/rhythm, normal heart sounds Gastrointestinal/Abdomen Exam: soft, normal bowel sounds Extremity Exam: normal inspection, normal range of motion Back Exam: normal range of motion OBJECTIVE DATA Vital Signs: Vital Signs - 24 hr Temp Pulse Resp BP BP Pulse Ox 02/08/23 11:25 97.7 F 61 16 127/71 99 02/08/23 07:15 98.2 F 73 16 118/66 99 02/08/23 03:47 98.6 F 69 17 127/74 98 02/07/23 23:20 99.1 F 70 150/86 99 02/07/23 21:23 99 02/07/23 21:00 70 18 130/78 99 02/07/23 20:30 117/77 02/07/23 20:00 72 18 124/76 98 02/07/23 19:30 116/69 02/07/23 19:00 67 18 113/70 99 02/07/23 18:30 72 120/85 99 02/07/23 18:22 104/89 98 02/07/23 18:00 115/76 99 07/25/23 17:25 99.1 F 86 20 150/86 98 Pain Assessment - Last Documented Pain Intensity 0 Intake and Output: Intake & Output 02/06/23 02/07/23 02/08/23 02/09/23 11:59 11:59 11:59 11:59 Intake Total 1337 Output Total 2100 Balance -763 Weight 58.6 kg Lab Results: Lab Results-Last 24 Hours 02/07/23 02/07/23 02/07/23 Range/Units 17:45 17:45 17:59 WBC 12.4 H (4.0-10.5) x10^3/uL RBC 3.94 L (4.1-5.6) x10^6/uL Hgb 11.8 L (12.5-18.0) g/dL Hct 34.6 L (42-50) % MCV 87.8 (78-100) fL MCH 29.9 (26-32) pg MCHC 34.1 (32-36) g/dL RDW 13.7 (11.5-14.0) % Plt Count 242 (150-450) x10^3/uL MPV 10.1 (7.5-11.0) fL Gran % 66.4 H (36.0-66.0) % Immature Gran % (Auto) 0.3 (0.00-0.4) % Nucleat RBC Rel Count 0.0 (0.00-0.1) % Eos # (Auto) 0.30 (0-0.5) x10^3/uL Immature Gran # (Auto) 0.04 H (0.00-0.03) x10^3u/L Absolute Lymphs (auto) 2.53 (1.0-4.6) x10^3/uL Absolute Monos (auto) 1.24 (0.0-1.3) x10^3/uL Absolute Nucleated RBC 0.00 (0.00-0.01) x10^3u/L Lymphocytes % 20.5 L (24.0-44.0) % Monocytes % 10.0 (0.0-12.0) % Eosinophils % 2.4 (0.00-5.0) % Basophils % 0.4 (0.0-0.4) % Absolute Granulocytes 8.21 H (1.4-6.9) x10^3/uL Basophils # 0.05 (0-0.4) x10^3/uL Sodium 138 (137-145) mmol/L Potassium 3.1 L (3.5-5.1) mmol/L Chloride 108 H (98-107) mmol/L Carbon Dioxide 20 L (22-30) mmol/L Anion Gap 13.6 (5-15) MEQ/L BUN 10 (9-20) mg/dL Creatinine 1.18 (0.66-1.25) mg/dL Estimated GFR > 60.0 ML/MIN Glucose 97 (74-106) mg/dL Lactic Acid 1.7 (0.4-2.0) Calcium 8.5 (8.4-10.2) mg/dL Magnesium (1.6-2.3) mg/dL Total Bilirubin 0.60 (0.2-1.3) mg/dL AST 26 (17-59) U/L ALT 18 (0-50) U/L Alkaline Phosphatase 100 (38-126) U/L Serum Total Protein 6.4 (6.3-8.2) g/dL Albumin 3.4 L (3.5-5.0) g/dL 02/08/23 02/08/23 02/08/23 Range/Units 04:15 04:15 05:18 WBC 10.1 (4.0-10.5) x10^3/uL RBC 3.84 L (4.1-5.6) x10^6/uL Hgb 11.6 L (12.5-18.0) g/dL Hct 33.7 L (42-50) % MCV 87.8 (78-100) fL MCH 30.2 (26-32) pg MCHC 34.4 (32-36) g/dL RDW 14.2 H (11.5-14.0) % Plt Count 229 (150-450) x10^3/uL MPV 10.1 (7.5-11.0) fL Gran % 61.9 (36.0-66.0) % Immature Gran % (Auto) 0.2 (0.00-0.4) % Nucleat RBC Rel Count 0.0 (0.00-0.1) % Eos # (Auto) 0.37 (0-0.5) x10^3/uL Immature Gran # (Auto) 0.02 (0.00-0.03) x10^3u/L Absolute Lymphs (auto) 2.20 (1.0-4.6) x10^3/uL Absolute Monos (auto) 1.20 (0.0-1.3) x10^3/uL Absolute Nucleated RBC 0.00 (0.00-0.01) x10^3u/L Lymphocytes % 21.8 L (24.0-44.0) % Monocytes % 11.9 (0.0-12.0) % Eosinophils % 3.7 (0.00-5.0) % Basophils % 0.5 (0.0-0.4) % Absolute Granulocytes 6.25 (1.4-6.9) x10^3/uL Basophils # 0.05 (0-0.4) x10^3/uL Sodium 140 (137-145) mmol/L Potassium 2.9 L* (3.5-5.1) mmol/L Chloride 113 H (98-107) mmol/L Carbon Dioxide 20 L (22-30) mmol/L Anion Gap 9.7 (5-15) MEQ/L BUN 9 (9-20) mg/dL Creatinine 1.30 H (0.66-1.25) mg/dL Estimated GFR > 60.0 ML/MIN Glucose 101 (74-106) mg/dL Lactic Acid (0.4-2.0) Calcium 8.1 L (8.4-10.2) mg/dL Magnesium 1.8 (1.6-2.3) mg/dL Total Bilirubin 0.50 (0.2-1.3) mg/dL AST 21 (17-59) U/L ALT 16 (0-50) U/L Alkaline Phosphatase 87 (38-126) U/L Serum Total Protein 5.9 L (6.3-8.2) g/dL Albumin 3.0 L (3.5-5.0) g/dL 02/08/ Range/Units 10:17 WBC (4.0-10.5) x10^3/uL RBC (4.1-5.6) x10^6/uL Hgb (12.5-18.0) g/dL Hct (42-50) % MCV (78-100) fL MCH (26-32) pg MCHC (32-36) g/dL RDW (11.5-14.0) % Plt Count (150-450) x10^3/uL MPV (7.5-11.0) fL Gran % (36.0-66.0) % Immature Gran % (Auto) (0.00-0.4) % Nucleat RBC Rel Count (0.00-0.1) % Eos # (Auto) (0-0.5) x10^3/uL Immature Gran # (Auto) (0.00-0.03) x10^3u/L Absolute Lymphs (auto) (1.0-4.6) x10^3/uL Absolute Monos (auto) (0.0-1.3) x10^3/uL Absolute Nucleated RBC (0.00-0.01) x10^3u/L Lymphocytes % (24.0-44.0) % Monocytes % (0.0-12.0) % Eosinophils % (0.00-5.0) % Basophils % (0.0-0.4) % Absolute Granulocytes (1.4-6.9) x10^3/uL Basophils # (0-0.4) x10^3/uL Sodium (137-145) mmol/L Potassium 3.2 L (3.5-5.1) mmol/L Chloride (98-107) mmol/L Carbon Dioxide (22-30) mmol/L Anion Gap (5-15) MEQ/L BUN (9-20) mg/dL Creatinine (0.66-1.25) mg/dL Estimated GFR ML/MIN Glucose (74-106) mg/dL Lactic Acid (0.4-2.0) Calcium (8.4-10.2) mg/dL Magnesium (1.6-2.3) mg/dL Total Bilirubin (0.2-1.3) mg/dL AST (17-59) U/L ALT (0-50) U/L Alkaline Phosphatase (38-126) U/L Serum Total Protein (6.3-8.2) g/dL Albumin (3.5-5.0) g/dL Radiology Exams: Radiology Procedures Category Date Time Status ORBITS WITHOUT CONTRAST [CT] Stat Exams 02/07/23 18:21 Completed Multi-Disciplinary Progress Notes: Multi-Disciplinary Progress Notes 02/08/23 12:04 Pharmacy Note by Juan Pichardo Pharmacokinetic dosing service Date: 02/08/23 Time: 1200 Objective: Patient: AMA CARR Floor: 102 Age: 57 yo Serum creatinine: 1.30 mg/dL Height: 68 Inches Weight (kg): 58 Diagnosis: PERIORBITAL CELLULITIS Relevant medical/social history: Cultures and sensitivities: Other labs: SR CR = 1.30 WBC 10.1 Assessment: IBW (kg): 68.40 Dosing wt(kg): 58 Estimated Creatinine clearance (ml/min): 52.1 CRCL method: Cockcroft and Gault using ibw(default). Drug selected: Vancomycin Loading dose (mg): 0 Vd (liters): 40.6 (factor used: 0.7 L/kg) Gabriel (hr-1): 0.048 Half life (hrs): 14.44 Recommended dose: 1000 mg Interval: 24 hrs Infusion time (hrs): 1.5 Predicted peak (mcg/mL): 34.7 Predicted trough (mcg/mL): 11.78 Total body weight is being used for vancomycin dosing. Renal function is stable [ XXX] /unstable [ ] Recommendations: Give Vancomycin 1000 mg q 24 hrs with an expected Cpeak of 34.7 mcg/ml and an expected Ctrough of 11.78 mcg/ml Renal dosing of other antibiotics (review renal dosing of other medications and list guidelines here): NONE Thank you for the consult, will continue to follow. Signature: JUAN PICHARDO Initialized on 02/08/23 12:04 - END OF NOTE Assessment/Plan (1) Facial cellulitis Current Visit: Yes Status: Acute Assessment & Plan: Continue IV antibiotics. Hematoma vs microabscess noted on CT scan. Clinically responding to antibiotics. Code(s): L03.211 - CELLULITIS OF FACE (2) Hypokalemia Current Visit: Yes Status: Acute Assessment & Plan: Replete. Will check Mag. Code(s): E87.6 - HYPOKALEMIA (3) Dehydration Current Visit: No Status: Acute Assessment & Plan: Receiving IV fluids. Creatinine trended upward. Code(s): E86.0 - DEHYDRATION Telemedicine Encounter - Telemedicine Encounter Telemedicine Encounter: The entirety of this encounter was performed via Telemedicine"
[2023-02-08] MEDS: Acidophilus TABLET PO SCH ×2 (14:00→21:17)
[2023-02-08] MEDS ORDERED: VANCOMYCIN 1 GRAM/200 ML BAG 1 GM/200 ML PIGGYBACK IV SCH (18:00)
[2023-02-09] MEDS: Sodium Chloride 0.9% 1000 ML 1,000 ML IV SCH ×2 (03:55→12:41)
[2023-02-09 04:38] LABS: Hematocrit 39.7 % (42-50); Hemoglobin 12.3 g/dL (12.5-18.0); Mean Cell Volume 96.8 fL (78-100); Mean Platelet Volume 10.1 fL (7.5-11.0); Platelet Count 209 x10^3/uL (150-450); Red Cell Distribution Width 14.3 % (11.5-14.0); White Blood Count 9.5 x10^3/uL (4.0-10.5)
[2023-02-09 05:08] LABS: ANION GAP 12.5 MEQ/L (5-15); BLOOD UREA NITROGEN 8 mg/dL (9-20); CHLORIDE 117 mmol/L (98-107); Creatinine 1 1.11 mg/dL (0.66-1.25); EST GLOMERULAR FILTRATION RATE > 60.0 ML/MIN; Glucose 93 mg/dL (74-106); Potassium 3.5 mmol/L (3.5-5.1); SODIUM 139 mmol/L (137-145)
[2023-02-09 05:15] LABS: Carbon Dioxide 12 mmol/L (22-30)
[2023-02-09 07:25] VITALS: RESP 16
[2023-02-09] MEDS: Acidophilus TABLET PO SCH (09:02)
[2023-02-09] MEDS: Paxil 20 MG PO SCH (09:02)
[2023-02-09] MEDS ORDERED: NON-FORMULARY ITEM (Paroxetine Hcl [Paxil] 10 MG Tablet) PO SCH (10:00)
[2023-02-09] MEDS ORDERED: ENOXAPARIN SODIUM SQ SCH (10:00)
[2023-02-09 11:19] VITALS: BP 134/69; PULSE 73; TEMP 97.4; O2SAT 97
--- NOTE | 2023-02-09 12:20 | PCM.DS ---
Discharge Summary Date of Admission: 02/07/23 21:35 Date of Discharge: 02/09/23 Admitting Physician: SUKHWINDER ONEAL MD Primary Care Provider: ENEDELIA OCONNOR Allergies Allergies buspirone [From BuSpar] Allergy (Severe, Verified 10/02/21 11:39) Swelling Penicillins Allergy (Intermediate, Verified 10/02/21 11:39) Hives IV DYE Allergy (Intermediate, Uncoded 10/02/21 11:39) Swelling Hospital Summary - Hospital Course Hospital Course: Patient presented with facial erythema but has improved with current antibiotics. Will resume clindamycin (only took 1-2 doses prior to presentation, so this may not represent failure of the outpatient regimen. The patient will closely follow up with the primary care team tomorrow. Of note, the patient had a few episodes of diarrhea prior to discharge (has known Crohn's disease), which likely accounts for the non-anion gap acidosis noted on today's BMP. The patient has been encouraged to take oral probiotics while completing the outpatient course. - Vitals & Intake/Output Vital Signs: Vital Signs Temperature 97.4 F 02/09/23 11:45 Pulse Rate 73 02/09/23 11:45 Respiratory Rate 16 02/09/23 11:45 Blood Pressure 134/69 02/09/23 11:45 O2 Sat by Pulse Oximetry 97 02/09/23 11:45 Intake & Output: Intake & Output 02/07/23 02/08/23 02/09/23 02/10/23 11:59 11:59 11:59 11:59 Intake Total 1337 4085 Output Total 2100 2450 Balance -763 1635 Weight 58.6 kg - Lab Result Diagrams: 02/09/23 04:33 02/09/23 04:33 Lab Results-Last 24 Hrs: Lab Results-Last 24 Hours 02/08/23 02/09/23 02/09/23 Range/Units 17:20 04:33 04:33 WBC 9.5 (4.0-10.5) x10^3/uL RBC 4.10 (4.1-5.6) x10^6/uL Hgb 12.3 L (12.5-18.0) g/dL Hct 39.7 L (42-50) % MCV 96.8 D (78-100) fL MCH 30.0 (26-32) pg MCHC 31.0 L (32-36) g/dL RDW 14.3 H (11.5-14.0) % Plt Count 209 (150-450) x10^3/uL MPV 10.1 (7.5-11.0) fL Sodium 139 (137-145) mmol/L Potassium 3.7 3.5 (3.5-5.1) mmol/L Chloride 117 H (98-107) mmol/L Carbon Dioxide 12 L* (22-30) mmol/L Anion Gap 12.5 (5-15) MEQ/L BUN 8 L (9-20) mg/dL Creatinine 1.11 (0.66-1.25) mg/dL Estimated GFR > 60.0 ML/MIN Glucose 93 (74-106) mg/dL Calcium 8.0 L (8.4-10.2) mg/dL Magnesium (1.6-2.3) mg/dL 02/09/23 Range/Units 04:33 WBC (4.0-10.5) x10^3/uL RBC (4.1-5.6) x10^6/uL Hgb (12.5-18.0) g/dL Hct (42-50) % MCV (78-100) fL MCH (26-32) pg MCHC (32-36) g/dL RDW (11.5-14.0) % Plt Count (150-450) x10^3/uL MPV (7.5-11.0) fL Sodium (137-145) mmol/L Potassium (3.5-5.1) mmol/L Chloride (98-107) mmol/L Carbon Dioxide (22-30) mmol/L Anion Gap (5-15) MEQ/L BUN (9-20) mg/dL Creatinine (0.66-1.25) mg/dL Estimated GFR ML/MIN Glucose (74-106) mg/dL Calcium (8.4-10.2) mg/dL Magnesium 1.7 (1.6-2.3) mg/dL Micro Results-Entire Visit: Microbiology 02/07/23 18:09 Blood Culture - Preliminary Blood 02/07/23 17:45 Blood Culture - Preliminary Blood - Radiology Exams Ordered Rad Exams-Entire Visit: Radiology Procedures Category Date Time Status ORBITS WITHOUT CONTRAST [CT] Stat Exams 02/07/23 18:21 Completed Discharge Exam General Appearance: no apparent distress, alert Neurologic Exam: alert, oriented x 3, cooperative, clinical research analyst II-XII nml as tested, normal mood/affect, nml cerebellar function Eye Exam: PERRL, EOMI Ears, Nose, Throat Exam: normal ENT inspection Neck Exam: normal inspection, non-tender, supple, full range of motion Respiratory Exam: normal breath sounds, lungs clear Cardiovascular Exam: regular rate/rhythm, normal heart sounds Gastrointestinal/Abdomen Exam: soft, normal bowel sounds Back Exam: normal range of motion Extremity Exam: normal inspection, normal range of motion Skin Exam: rash (erythema and swelling below right eye on on right cheek markedly improved) Wound Assessment: Skin/Wound Assessment Wound/Incision Assessment Start: 02/07/23 21:45 Text: Status: Active Freq: Q6H Protocol: Document 02/09/23 08:00 DINORA (Rec: 02/09/23 09:29 DINORA [id number]) Wound/Incision Assessment Right Face Wound Assessment Shift Assessment Wound Type edema & redness Wound Stage Non Pressure Wound Dressing Status Drainage circled Drainage Amount None Drainage Description none Drainage Odor None/Absent General Appearance Open to air,Reddened Surrounding Tissue [place] Wound Photo Photo Taken No Final Diagnosis/Problem List - Final Discharge Diagnosis/Problem (1) Facial cellulitis Current Visit: Yes Status: Acute Assessment & Plan: Complete previously prescribed antibiotics course Code(s): L03.211 - CELLULITIS OF FACE (2) Hypokalemia Current Visit: Yes Status: Acute Assessment & Plan: Improved Code(s): E87.6 - HYPOKALEMIA (3) Dehydration Current Visit: No Status: Acute Assessment & Plan: Improved clinically. Acidosis due to antibiotics-induced diarrhea. Encouraged oral fluid intake. Code(s): E86.0 - DEHYDRATION Telemedicine Encounter - Telemedicine Encounter Telemedicine Encounter: The entirety of this encounter was performed via Telemedicine" - Discharge Disposition: Home, Self-Care Condition: Stable Prescriptions: New L. Acidophilus/L.bulgaricus [Lactobacillus Tablet] 1 each PO DAILY 10 Days #10 tablet Continue Ergocalciferol (Vitamin D2) [Vitamin D2] 1,250 mcg PO WEEKLY Potassium Chloride [Klor-Con] 20 meq PO 20 Mesalamine [Pentasa] 500 mg PO QID clindamycin HCL [Clindamycin HCl] 300 mg PO QID PARoxetine HCL [Paxil] 10 mg PO DAILY Additional Instructions: If you have any worsening swelling which is localized, please call Dr. Oconnor for further instructions. Follow up with: ENEDELIA OCONNOR [Primary Care Provider] - 02/10/23 8:30 am
[2023-02-10] MEDS ORDERED: TROUGH DRUG LEVELS IJ ONE (17:30)
== END 2023-02-09 12:27 | disposition home or self-care (01) ==
LOC: ED 17:18 → MED SURG 21:35
PROVIDERS: ADMIT Student in an Organized Health Care Education/Training Program; ATTEND Student in an Organized Health Care Education/Training Program
DX: L03.211 Cellulitis of face (principal); E87.6 Hypokalemia; E86.0 Dehydration; K50.90 Crohn's disease, unspecified, without complications; Z79.899 Other long term (current) drug therapy; Z20.828 Contact with and (suspected) exposure to other viral communicable diseases; Z72.0 Tobacco use
CPT/HCPCS: 36000; 36415; 70480; 80048; 80053; 83605; 83735; 84132; 85025; 85027; 87040; 93268; 96365; 96374; 99285; G0378; Q3014; 96360; J1650; J3480; A9270-GY; J3370